=== PATIENT | female | born 1960 | race Caucasian/White ===

== ENCOUNTER 2022-03-01 18:12 | Emergency (ER) | payer BC ==
--- OUTSIDE RECORDS SUMMARY | 2022-03-01 18:19 | XMS REPORT | Continuity of Care Document ---
:1960 Author Organization [facility] t Address [address] [place] [address] Care Team Providers Name Role Phone Elliott ENGLE Primary Care Physician Unavailable Remy Monte Attending Clinician Unavailable William Dickerson Attending Clinician Unavailable Anurag Sage Attending Clinician Unavailable Felice_Narinder Attending Clinician Unavailable JESSA SAGE Attending Clinician Unavailable Nurse, Pob Immunization Attending Clinician Unavailable Odin Barillas DO Attending Clinician ODIN BARILLAS Attending Clinician Unavailable Angela, Cammie Attending Clinician Unavailable Lab, Fam Pob I Attending Clinician Unavailable Juju HERNANDEZP Attending Clinician JUJU Attending Clinician Unavailable ELYSIA Attending Clinician Unavailable Angelo DAWN Attending Clinician Unavailable William Dickerson Admitting Clinician Unavailable Angela, Cammie Admitting Clinician Unavailable Felice_Narinder Admitting Clinician Unavailable Juli Monte Admitting Clinician Unavailable Payers Payer Name Policy Type Policy Number Effective Date Expiration Date S our[place] [id number] 2020 00:[place]00 [place] 2 [id number] 2021 00:00:00 AETNA O [id number] 2017 00:00:00 AETNA (PPO) [id number] 2017 00:00:00 AETNA O [id number] 2017 00:00:00 Problems Condition Condition Condition Status Onset Resolution Last Treating Co mments Source Name Details Category Date Date Treatment Clinician Date Statin not Statin Not Problem Active [facility] tolerated Tolerated 4-11 Fami ly 00:00: Practic 00 e Tinea Tinea Problem Active [facility] cruris Cruris 7-12 Family 00:00: Practic 00 e Neuropathy Neuropathy Problem Active [facility] 7-12 Family 00:00: Practic e Microalbum Microalbum Problem Active [facility] inuria inuria 3-14 Family 00:00: Practic e Type 2 Type 2 Problem Active 2019-09 [facility] diabetes Diabetes 0-30 Family mellitus Mellitus 00:00: Practi c 00 e Hyperlipid Hyperlipid Problem Active 2019-09 [facility] emia emia 0-30 Family 00:00: Practic e Benign Benign Problem Active 2019-09 [facility] essential Essential 0-30 Fami ly hypertensi Hypertensi 00:00: Pr actic on on 00 e Ulcer of Ulcer of Problem Active [facility] toe Toe 7-07 Family 00:00: Practic 00 e Ulcer of Ulcer of Problem Active [facility] ge foot Foot 7-07 Family 00:00: Practic 00 e Hypertrigl Hypertrigl Problem Active 2018-09 [facility] yceridemia yceridemia 1-03 Fa thalia 00:00: Practic 00 e Pure Pure Problem Active 2018-09 [facility] hyperglyce Hyperglyce 1-03 Fa thalia ridemia ridemia 00:00: Practic e Depressive Depressive Problem Active 2018-09 [facility] disorder Disorder 0-16 Family 00:00: Practic 00 e Carotid Carotid Problem Active 2018-09 [facility] artery Artery 0-16 Family stenosis Stenosis 00:00: Practi c 00 e Disorder Disorder Problem Active 2018-09 Sidhu ge of carotid of Carotid 0-16 [facility] artery Artery 00:00: Practic 00 e Obesity Obesity Disease Active 2017-09 Univers (BMI (BMI 2-27 ity of 30-39.9) 30-39.9) 00:00: [place] [facility] Obesity Obesity Problem Active 2016-09 [facility] 09-11 Family 00:00: Practic 00 e On On Problem Active 2016-09 [facility] examinatio Examinatio 09-11 Alejandro vásquez n - n - 00:00: Practic retinopath Retinopath 00 e y y Neoplasm Neoplasm Problem Active 2016-09 Sidhu ge of of 09-11 Family uncertain Uncertain 00:00: Prac tic behavior Behavior 00 e of kidney of Kidney Neoplasm Neoplasm Problem Active 2016-09 Sidhu ge of of 09-11 Family uncertain Uncertain 00:00: Prac tic behavior Behavior 00 e of breast of Breast Retinal Retinal Problem Active 2016-09 [facility] disorder Disorder 09-11 Family 00:00: Practic 00 e Hypertensi Hypertensi Problem Active 2016-09 [facility] ve ve 09-11 Family disorder Disorder 00:00: Practi c 00 e Acute Acute Problem Active 2016-09 [facility] pancreatit Pancreatit 09-11 Alejandro vásquez is is 00:00: Practic 00 e Fitting Fitting Problem Active 2016-09 [facility] procedure Procedure 09-11 Fami ly 00:00: Practic 00 e Clinical Clinical Problem Active 2016-09 Sidhu ge finding Finding 09-11 Family 00:00: Practic 00 e Pain Pain Disease Active Univers 8-15 ity of 00:00: [place] 00 [facility] Bilateral Bilateral Disease Active Uni vers chronic chronic 3-14 [place] of [place] pain [place] Bilateral Bilateral Disease Active Uni vers chronic chronic 3-14 [place] pain [place] Lupus Lupus Disease Active [facility] [place] [facility] Allergies, Adverse Reactions, Alerts Allergy Allergy Status Severity Reaction(s) Onset Inactive Treating Comm ents Source Name Type Date Date Clinician SULFA Drug Active Med Other-Cmnt Univer s (SULFONA Class 8-12 ity of MIDE 00:00: [place] ANTIBIOT 00 Medical ICS) Branch Sulfa Propensi Active Other - See Hair loss Univers (Sulfona ty to comments 8-12 ity of mide adverse 00:00: [place] Antibiot reaction 00 Medica l ics) s to Branch drug Sulfa DA Active [place] [facility] ([facility]ulfona OUT 04-10 [facility] 00:[facility]: [facility]osp[facility] Antibiot 00 l of ics) [place] SULFA DA Active [place] [facility] DRUGS 8-05 [facility] 00:00: [facility] 00 l [facility] [place] No Known DA Active U 2006-0 [facility] Contrast 6- Woman[facility] Allergie 00:00: [facility]osp[facility] s 00 [facility] of [place] No Known DA Active U 2006-0 [facility] Food 6- Woman[facility] Allergie 00:00: [facility]ospita s 00 [facility] of [place] No Known DA Active U 2006-0 [facility] Other 6- Woman[facility] Allergie 00:00: [facility]osp[facility] [place] SULFA Allergy Active Anaphylaxis [facility] (SULFONA to Family MIDE substanc Practic ANTIBIOT e e ICS) Sulfa Adverse Active Info Not Common Reaction Available Spiri t - [facility] Social History Social Habit Start Date Stop Date Quantity Comments Source Alcohol intake 2018-09-02 2018-09-02 0 /d [facility] 00:00:00 00:00:00 Medical Branch Tobacco use and 2015-11-18 2015-11-18 Never used [facility] exposure 00:00:00 00:00:00 Medical Branch Sex [birth year] [facility] 00:00:00 00:00:00 Medical Branch Smoking Status Start Date Stop Date Source Never smoker [facility] Medications Ordered Filled Start Stop Current Ordering Indication Dosage Frequency Signature Comments Components Source Medication Medication Date Date Medication? Clinician (SIG) Name Name Shukrifenissa Guaifenesin 2020-0 2020- No Na [place] 10 ml as Common 1-10 01-10 needed Spirit 00:00: 00:00 - [facility]I 00 :00 [facility] Losartan Losartan 2019-0 Yes Na Monte 1 tablet Common Potassium-H Potassium-H 3-18 S pirit CTZ CTZ 00:00: - [facility]I 00 [facility] NIASPAN 500 2017-09 Yes 1 daily Uni vers MG ORAL 2-27 ity of TBSR 14:49: [place] 27 Medical Branch ASPIRIN 81 2017-09 Yes Take 1 Unive rs MG ORAL 2-27 tablet by ity of CHEW 14:49: mouth [place] 27 daily. Medical Branch gabapentin 2017-09 Yes 1800mg Take 1,800 Univers (GRALISE) 2-27 mg by ity of 300 mg 14:49: mouth at [place] tablet 27 bedtime. Medical Branch insulin 2017-09 Yes 3U inject 3 Univer s aspart 2-27 Units ity of RAPID 14:49: under the [place] (NOVOLOG) 27 skin Medical 100 unit/mL daily. Branch injection Indication s: Novolog 3 units per hour via insulin pump. NIASPAN 500 2018 Yes 1 daily Uni vers MG ORAL 2-27 ity of TBSR 08:49: Medical Branch ASPIRIN 81 2017-09 Yes Take 1 Unive rs MG ORAL 2-27 tablet by ity of CHEW 08:49: mouth [place] 27 daily. Medical Branch gabapentin 2017-09 Yes 1800mg Take 1,800 Univers (GRALISE) 2-27 mg by ity of 300 mg 08:49: mouth at [place] tablet 27 bedtime. Medical Branch insulin 2017-09 Yes 3U inject 3 Univer s aspart 2-27 Units ity of RAPID 08:49: under the [place] (NOVOLOG) 27 skin Medical 100 unit/mL daily. Branch injection Indication s: Novolog 3 units per hour via insulin pump. Losartan Losartan 2017-0 Yes Na Monte 1 tablet Common Potassium Potassium 9-17 Spiri t 00:00: - [facility] diclofenac 2018-0 Yes 75mg Take 1 Unive rs 75 mg EC 5-29 tablet by ity of tablet 00:00: mouth 2 (two) Medical times Branch daily with meals. diclofenac 2018-0 Yes 75mg Take 1 Unive rs 75 mg EC 5-29 tablet by ity of tablet 00:00: mouth 2 (two) Medical times Branch daily with meals. Losartan Losartan 2018-0 Yes Na [place] 1 tablet Common Potassium Potassium 3-14 Spiri t 00:00: - [facility] meloxicam 2018-0 Yes 7.5mg Take 1 Unive rs 7.5 mg 3-12 tablet by ity of tablet 00:00: mouth daily. Medical Branch meloxicam 2018-0 Yes 7.5mg Take 1 Unive rs 7.5 mg 3-12 tablet by ity of tablet 00:00: mouth daily. Medical Branch mirtazapine 2017-0 Yes Take by Un dwayne 7.5 mg 1-10 mouth at ity of tablet 00:00: bedtime. Medical Branch mirtazapine 2017-0 Yes Take by Un dwayne 7.5 mg 1-10 mouth at ity of tablet 00:00: bedtime. Medical Branch DULoxetine 2016-09 Yes TAKE 1 Unive rs 60 mg 1-30 CAPSULE BY ity of capsule 00:00: MOUTH AT [place] BEDTIME Medical Branch DULoxetine 2016-09 Yes TAKE 1 Unive rs 60 mg 1-30 CAPSULE BY ity of capsule 00:00: MOUTH AT [place] BEDTIME Medical Branch naproxen 2015-09 Yes TAKE 1 Univers (EC 0-10 TAB(S) ity of NAPROSYN) 00:00: [place]ALLY 2 [place] 500 mg EC 00 TIMES A Medical tablet DAY Branch naproxen 2015-09 Yes TAKE 1 Univers (EC 0-10 TAB(S) ity of NAPROSYN) 00:00: ORALLY 2 [place] 500 mg EC 00 TIMES A Medical tablet DAY Branch hydrochloro Yes 12.5mg Take 12.5 Univers thiazide 2-23 mg by ity of (HYDRODIURI 00:00: mouth [place] L) 12.5 mg 00 daily. Medical tablet Branch losartan Yes 100mg Take 100 Univ ers (COZAAR) 2-23 mg by ity of 100 mg 00:00: mouth [place] tablet 00 daily. Medical Branch rOPINIRole Yes 1mg Take 1 mg Un dwayne (REQUIP) 1 2-23 by mouth ity o f mg tablet 00:00: at [place] [address] bedtime. Medical Branch hydrochloro Yes 12.5mg Take 12.5 Univers thiazide 2-23 mg by ity of (HYDRODIURI 00:00: mouth [place] L) 12.5 mg 00 daily. Medical tablet Branch losartan Yes 100mg Take 100 Univ ers (COZAAR) 2-23 mg by ity of 100 mg 00:00: mouth [place] tablet 00 daily. Medical Branch rOPINIRole Yes 1mg Take 1 mg Un dwayne (REQUIP) 1 2-23 by mouth ity o f mg tablet 00:00: at [place] [address] bedtime. Medical Branch citalopram Yes 40mg Take 40 mg U nivers (CELEXA) 40 2-19 by mouth ity of mg tablet 00:00: daily. [place] [facility] citalopram Yes 40mg Take 40 mg U nivers (CELEXA) 40 2-19 by mouth ity of mg tablet 00:00: daily. [place] [facility] FREESTYLE [id number] Yes Univers TEST strip 1- ity of 00:00: [place] [facility] FREEYLE 20160 Yes Univers TEST strip - ity of 00:00: [place] [facility] Triamcinolo Triamcinolo Yes Na [place] 1 Common ne ne applicatio Spirit Acetonide Acetonide n to - CHI affected [facility] Requip Requip Yes Na [place] 1 tablet 1 Co mmon to 3 hours [facility] before - CHI bedtime [facility] Mirtazapine Mirtazapine Yes Na [place] 1 tablet Common [facility] Cozaar Cozaar Yes Na [place] 1 tablet Comm on [facility] Celexa Celexa Yes Na [place] 1 tablet Com mon [facility] Xanax Xanax Yes Na [place] 1 tablet Common [facility] Celebrex Celebrex Yes Na [place] TAKE 1 Co mmon CAPSULE Spirit DAILY. - CHI [facility]LEASE [facility] YOUR DOCTOR Richard Ramos Yes Na [place] 1 tablet Co mmon [facility] Cymbalta Cymbalta Yes Na [facility] 1 capsule Common [facility] Patanase Patanase Yes Na [place] 2 sprays Common in each [facility] Plavix Plavix Yes Na [place] 1 tablet Comm on [facility] Aspir-81 Aspir-81 Yes Na [place] 1 tablet Common [facility] Doxycycline Doxycycline Yes Na [place] 1 capsule Common Hyclate Hyclate [facility] Requip Requip Yes Na [place] 1 tablet 1 Co mmon to 3 hours [facility] before [facility] bedtime [facility] Azithromyci Azithromyci Yes Na Monte 2 tablets Common n n on the Spirit first day, - CHI then [address] tablet [facility] daily for Medical 4 days Center Flonase Flonase Yes Na [facility] 2 spray in Common each [facility] Adderall XR Adderall XR No Adderall [place] 20 mg 20 mg XR 20 mg Family capsule,ext capsule,ext capsule,ex Practic ended ended tended e release release release TAKE 1 TAKE 1 TAKE 1 CAPSULE BY CAPSULE BY CAPSULE BY MOUTH EVERY MOUTH EVERY MOUTH DAY IN THE DAY IN THE EVERY DAY MORNING MORNING IN THE MORNING citalopram citalopram No citalopram [facility] 40 mg 40 mg 40 mg Family tablet TAKE tablet TAKE tablet Practic 1 TABLET BY 1 TABLET BY TAKE 1 e MOUTH EVERY MOUTH EVERY TABLET BY DAY DAY MOUTH EVERY DAY Farxiga 10 Farxiga 10 No Satishxiga 10 Village mg tablet mg tablet mg tablet Family TAKE 1 TAKE 1 TAKE 1 Practic TABLET BY TABLET BY TABLET BY e MOUTH EVERY MOUTH EVERY MOUTH DAY DAY EVERY DAY fluticasone fluticasone No fluticason [facility] propionate propionate e Fam tiesha 50 50 propionate Practic mcg/actuati mcg/actuati 50 e on nasal on nasal mcg/actuat spray,suspe spray,suspe ion nasal nsion SPRAY nsion SPRAY spray,susp 2 SPRAYS 2 SPRAYS ension INTO EACH INTO EACH SPRAY 2 NOSTRIL NOSTRIL SPRAYS ONCE A DAY ONCE A DAY INTO EACH NOSTRIL ONCE A DAY FreeStyle FreeStyle No FreeStyle [facility] Jenny 14 Jenny 14 Jenny 14 Fam tiesha Day [employer] Day [employer] Day [employer] Practic e FreeStyle FreeStyle No FreeStyle [facility] Jenny 14 Jenny 14 Jenny 14 Fam tiesha Day Sensor Day Sensor Day Sensor Practic e FreeStyle FreeStyle No FreeStyle [facility] Jenny 14 Jenny 14 Jenny 14 Fam tiesha Day Sensor Day Sensor Day Sensor Practic kit USE 1 kit USE 1 kit USE 1 e SENSOR SENSOR SENSOR EVERY 14 EVERY 14 EVERY 14 DAYS IN DAYS IN DAYS IN VITRO VITRO VITRO FreeStyle FreeStyle No FreeStyle [facility] Test strips Test strips Test F amily strips Practic e Gralise 600 Gralise 600 No Gralise [facility] mg mg 600 mg Family tablet,exte tablet,exte tablet,ext Practic nded nded ended e release release release TAKE 3 TAKE 3 TAKE 3 TABLETS TABLETS TABLETS ONCE A DAY ONCE A DAY ONCE A DAY AT BEDTIME AT BEDTIME AT BEDTIME ORALLY 30 ORALLY 30 ORALLY 30 DAYS DAYS DAYS ipratropium ipratropium No ipratropiu [facility] bromide 21 bromide 21 m bromide Family mcg (0.03 mcg (0.03 21 mcg Pra ctic %) nasal %) nasal (0.03 %) e spray USE 2 spray USE 2 nasal SPRAYS IN SPRAYS IN spray USE EACH EACH 2 SPRAYS NOSTRIL 3 NOSTRIL 3 IN EACH TIMES A DAY TIMES A DAY NOSTRIL 3 TIMES A DAY losartan losartan No losartan Raman silke 100 100 100 Family mg-hydrochl mg-hydrochl mg-hydroch Practic orothiazide orothiazide lorothiazi e 12.5 mg 12.5 mg de 12.5 mg tablet TAKE tablet TAKE tablet 1 TABLET BY 1 TABLET BY TAKE 1 MOUTH EVERY MOUTH EVERY TABLET BY DAY FOR 90 DAY FOR 90 MOUTH DAYS DAYS EVERY DAY FOR 90 DAYS metformin metformin No 1 BID metformin [place] ER 500 mg ER 500 mg ER 500 mg Family 24 hr 24 hr 24 hr Practic tablet,exte tablet,exte tablet,ext e nded nded ended release release release Take 1 Take 1 Take 1 tablet tablet tablet twice a day twice a day twice a by oral by oral day by route as route as oral route directed directed as for 90 for 90 directed days. days. for 90 days. Nystop Nystop No Nystop [facility] 100,000 100,000 100,000 Family unit/gram unit/gram unit/gram Practic topical topical topical e powder powder powder APPLY TO APPLY TO APPLY TO THE THE THE AFFECTED AFFECTED AFFECTED AREA(S) BY AREA(S) BY AREA(S) BY TOPICAL TOPICAL TOPICAL ROUTE 2 ROUTE 2 ROUTE 2 TIMES PER TIMES PER TIMES PER DAY DAY DAY Ozempic 1 Ozempic 1 No 1mg Q1W Ozempic 1 [place] mg/dose (4 mg/dose (4 mg/dose (4 Family mg/3 mL) mg/3 mL) mg/3 mL) Pra ctic subcutaneou subcutaneou subcutaneo e s pen s pen us pen injector injector injector Inject 1 mg Inject 1 mg Inject 1 every week every week mg every by by week by subcutaneou subcutaneou subcutaneo s route for s route for us route 30 days. 30 days. for 30 days. ropinirole ropinirole No ropinirole [facility] 1 mg tablet 1 mg tablet 1 mg F amily TAKE 1 TAKE 1 tablet Practic TABLET BY TABLET BY TAKE 1 e MOUTH ONE MOUTH ONE TABLET BY TO THREE TO THREE MOUTH ONE HOURS HOURS TO THREE BEFORE BEFORE HOURS BEDTIME 90 BEDTIME 90 BEFORE BEDTIME 90 Gralise Gralise 2019- No Na [place] 3 tablets Common 11-02 Spirit 00:00 - CHI :00 [facility] PredniSONE PredniSONE 2019- No Na [place] 2 tablet Common 09-15 daily x 5 Spirit 00:00 days then - CHI :[address] daily x 5 [facility] Immunizations Ordered Filled Immunization Date Status Comments [facility] e Immunization Name Name SARS-COV-2 COVID-19 2021-08-26 Completed Unive rsity of PFIZER VACCINE 00:00:00 [facility] SARS-COV-2 COVID-19 2021-01-28 Completed Unive rsity of PFIZER VACCINE 00:00:00 [facility] influenza, influenza, 2020-07-07 Completed [facility] injectable, injectable, 00:00:00 Practice quadrivalent quadrivalent Vital Signs Vital Name Observation Time Observation Value Comments Source BP Diastolic 2021-12-15 00:00:00 83 mm[Hg] [facility] Family Practice Height 2021-12-15 00:00:00 65 [in_i] [facility] Family Practice BMI (Body Mass 2021-12-15 00:00:00 34.1 kg/m2 [facility] Practice BP Systolic 2021-12-15 00:00:00 145 mm[Hg] [facility] Body Weight 2021-12-15 00:00:00 205 [lb_av] [facility] Height 2021-03-17 00:00:00 65 [in_i] [facility] BMI (Body Mass 2021-03-17 00:00:00 34.4 kg/m2 [facility] Body Weight 2021-03-17 00:00:00 207 [lb_av] [facility] BP Diastolic 2020-11-13 00:00:00 79 mm[Hg] [facility] Height 2020-11-13 00:00:00 65 [in_i] [facility] Practice BMI (Body Mass 2020-11-13 00:00:00 35.1 kg/m2 [facility] Practice BP Systolic 2020-11-13 00:00:00 146 mm[Hg] [facility] Body Weight 2020-11-13 00:00:00 211 [lb_av] [facility] Height 2020-08-06 00:00:00 65 [in_i] [facility] Family Practice BMI (Body Mass 2020-08-06 00:00:00 35.6 kg/m2 [facility] Practice Body Weight 2020-08-06 00:00:00 214 [lb_av] [facility] Practice Procedures Procedure Date / Time Performing Clinician Source Performed SARS-COV-2 COVID-19 2021-08-26 21:46:21 Doctor Unassigned, No [facility] [place] VACCINE,0.3ML,IM Name Medical Branch (PFIZER) Gastric Bypass for 2019-03-28 00:00:00 Tim cheney Obesity Practice Knee 2017-12-05 00:00:00 [facility] Jessica david Arthroscopy/surgery Practice Colonoscopy 2015-09-06 00:00:00 [facility] Jessica ly Practice Section [facility] Procedure on Kidney [facility] ly Practice Lumpectomy of Right [facility] ly Breast Practice Plan of Care Planned Activity Planned Date Details Comments Source Diagnostic Test 2021-12-15 glucose, fingerstick, Raman Boyle Pending 00:00:00 blood [code = Practice glucose, fingerstick, blood] Diagnostic Test 2021-12-15 hemoglobin A1C, [facility] Roman cheney Pending 00:00:00 fingerstick [code = Practice hemoglobin A1C, fingerstick] Future Appointment 2022-06-16 Kevin Viveros, [id number] [facility] 00:00:[address]; Practice [address], [place] [address] Encounters Start End Encounter Admission Attending Care Care Encounter Source Date/Time Date/Time Type Type Clinicians Facility Department ID 2021-10-01 Outpatient Monte, Na STLMLC STLMLC [id number] 2 Common 14:39:36 [facility] 2021-10-01 Outpatient Monte, Na STLMLC STLMLC [id number] 2 Common 12:51:35 [facility] 2021-10-01 Outpatient Monte, Na STLMLC STLMLC [id number] 2 Common 11:59:46 [id number] [facility] 2021-10-01 Outpatient Monte, Na STLMLC STLMLC [id number] 2 Common 11:58:12 [facility] 2021-10-01 Outpatient Monte, Na STLMLC STLMLC [id number] 2 Common 11:56:19 [facility] 2021-10-01 Outpatient Monte, Na [facility]MLC [facility] [id number] 2 Common 11:54:51 [id number] [facility] 2021-10-01 Outpatient Monte, Na STRENEE [facility] [id number] 2 Common 11:04:06 [id number] [facility] 2021-10-01 Outpatient Mell Na STEBENEZERLC [facility] [id number] 2 Common 10:59:46 [id number] [facility] 2019-12-25 Inpatient EM Tuan, HCAPM INTE.02 [id number] [facility] 00:12:00 Rahul [id number] [facility] 2019-12-24 Inpatient EM Dickerson, HCAPM INTE.02 [id number] [facility] 21:18:00 Rahul [id number] [facility] 2022-01-08 2022-01-08 Outpatient FAMILIA SageWH OUTD [id number] [facility] 11:30:00 11:30:00 [facility] [id number] [facility] 2021-12-23 2021-12-23 Outpatient Daniel_T VFP P [id number] [address] [place] [address] 05:57:00 05:57:00 [id number] Family Practic e 2021-12-16 2021-12-16 Outpatient MONICA SAGE [id number] Monica 00:00:00 00:00:00 JOVON Seybol brittany 2021-12-15 2021-12-15 Outpatient Daniel_T VFP VFP [id number] [address] [place] [address] 12:51:00 12:51:00 [id number] Family Practic e 2021-12-15 2021-12-15 Kevin P [place] - [id number] V illage 00:00:00 00:00:00 [facility] Family ViverosTodd - Practheo nunez MD: [id number] TREVER_JENNIFER_John briones [facility] [address] [facility], [address], [place] [address] , Ph. 2021-12-09 2021-12-09 Outpatient MONICA SAGE [id number] Monica 00:00:00 00:00:00 JOVON Seybol brittany 2021-12-04 2021-12-04 Outpatient MONICA SAGE [id number] Monica 13:00:00 13:00:00 JOVON Seybol d 2021-11-20 2021-11-20 ambulatory STLMLC STLMLC [id number] Common 00:00:00 00:00:00 [facility] 2021-11-20 2021-11-20 ambulatory STLMLC STLMLC [id number] Common 00:00:00 00:00:00 [facility] 2021-11-12 2021-11-12 Outpatient MONICA SAGE [id number] Monica 00:00:00 00:00:00 JOVON Seybol d 2021-11-05 2021-11-05 Outpatient MONICA SAGE [id number] Monica 00:00:00 00:00:00 JOVON Seybol d 2021-10-30 2021-10-30 Outpatient MONICA SAGE [id number] Monica 15:00:00 15:00:00 JOVON Seybol d 2021-10-29 2021-10-29 ambulatory STLMLC STLMLC [id number] Common 00:00:00 00:00:00 [facility] 2021-10-15 2021-10-15 ambulatory STLMLC STLMLC [id number] Common 00:00:00 00:00:00 [facility] 2021-09-29 2021-09-29 ambulatory STLMLC STLMLC [id number] Common 00:00:00 00:00:00 [facility] 2021-09-29 2021-09-29 ambulatory STLMLC STLMLC [id number] Common 00:00:00 00:00:00 [facility] 2021-09-18 2021-09-18 ambulatory STLMLC STLMLC [id number] Common 00:00:00 00:00:00 [facility] 2021-08-26 2021-08-26 Imm/Inj Nurse, Loy Pob Immunization [facility] [id number] Univers 15:50:00 15:50:00 [id number] [place] GRIDEREMANUEL [id number] [address] 2021-08-26 2021-08-26 Outpatient Chacho BARILLAS [facility] [id number] Univers 15:50:00 15:31:54 ISAAC pickering [facility] 2021-08-20 2021-08-20 Outpatient RANDA Miller, [facility] [id number] [facility] 12:00:00 12:00:00 [facility] [address] [facility] 2021-07-28 2021-07-28 ambulatory STLMLC STLMLC [id number] Common 00:00:00 00:00:00 [facility] 2021-06-27 2021-06-27 Outpatient Daniel_T VFP VFP [id number] [address] [place] [address] 11:34:00 11:34:00 [id number] Family Practic e 2021-06-27 2021-06-27 Outpatient Daniel_T VFP VFP [id number] [facility] 11:34:00 11:34:00 [id number] Family Practic e 2021-06-16 2021-06-16 Outpatient STLMLC STLC [id number] Common 00:00:00 00:00:00 [facility] 2021-03-19 2021-03-19 Outpatient Daniel_T VFP VFP [id number] [address] [place] [address] 11:34:00 11:34:00 [id number] Family Practic e 2021-03-17 2021-03-17 Outpatient Daniel_T VFP VFP [id number] [facility] 05:38:00 05:38:00 [id number] Family Practic e 2021-03-17 2021-03-17 Kevin VFP [place] - [id number] V illage 00:00:00 00:00:00 [facility] Family ViverosTodd - Practi enrique ANN: [id number] VM_ASHKANU_Shabrittany e [facility], [address], [place] [address] , Ph. 2021-02-17 2021-02-17 Outpatient Chacho BARILLAS [facility] [id number] Univers 11:00:00 11:00:00 [facility] 2021-01-28 2021-01-28 Outpatient Chacho BARILLAS [facility] [id number] Univers 17:50:00 17:50:00 [facility] 2021-01-11 2021-01-11 Outpatient Daniel_T VFP VFP [id number] [facility] 10:28:00 10:28:00 [id number] Family Practic e 2021-01-11 2021-01-11 Outpatient Daniel_T VFP VFP [id number] 20 [facility] 10:28:00 10:28:00 [id number] Family Practic e 2021-01-11 2021-01-11 Outpatient Daniel_T VFP VFP [id number] 20 [facility] 10:28:00 10:28:00 [id number] Family Practic e 2020-11-26 2020-11-26 Outpatient STLMLC STLC [id number] Common 00:00:00 00:00:00 [facility] 2020-11-20 2020-11-20 Outpatient Daniel_T VFP VFP [id number] 20 [facility] 06:42:00 06:42:00 [id number] Family Practic e 2020-11-13 2020-11-13 Outpatient Daniel_T VFP VFP [id number] [facility] 04:16:00 04:16:00 [id number] Family Practic e 2020-11-13 2020-11-13 Kevin VFP [place] - [id number] V illage 00:00:00 00:00:00 [facility] Family ViverosTodd - Ruth nunez MD: [id number] VM_HOU_Shabrittany e Shadow [facility], [address], [place] [address] , Ph. 2020-11-11 2020-11-11 Outpatient Daniel_T VFP VFP [id number] [place] 08:48:00 08:48:00 [id number] Family Practic e 2020-09-03 2020-09-03 Outpatient STLMLC STLC [id number] Common 00:00:00 00:00:00 [facility] 2020-08-12 2020-08-12 Outpatient STLMLC STLMLC [id number] Common 00:00:00 00:00:00 [facility] 2020-08-09 2020-08-09 Outpatient Daniel_T VFP VFP [id number] 20 [facility] 08:12:00 08:12:00 Family Practic e 2020-08-08 2020-08-08 Outpatient STLMLC STLMLC [id number] Common 00:00:00 00:00:00 [facility] 2020-08-08 2020-08-08 Outpatient STLMLC STLMLC [id number] Common 00:00:00 00:00:00 [facility] 2020-08-06 2020-08-06 Outpatient Daniel_T VFP VFP [id number] 20 [facility] 05:30:00 05:30:00 Family Practic e 2020-08-06 2020-08-06 Kevin VFP [place] - [id number] V illage 00:00:00 00:00:00 [facility] Family Viveros, Medical - Practheo nunez MD: [id number] VM_HOU_Dani e [facility], [address] [address] , Ph. 2020-06-26 2020-06-26 Outpatient STLMLC STLMLC [id number] Common 00:00:00 00:00:00 [facility] 2020-03-09 2020-03-09 Outpatient R [facility] [id number] Univers 16:15:00 16:15:00 [id number] ity [facility] 2020-03-09 2020-03-09 Outpatient R [facility] [id number] Univers 16:15:00 16:15:00 [facility] 2020-03-08 2020-03-08 Laboratory Lab, Adc Fam Pob I [facility] 1.2. [id number] Univers 15:54:51 16:14:51 Only [id number] Blake as Professio [phone] [place] dical nal [address] 2020-03-08 2020-03-08 Laboratory Lab, [facility] [id number] 15:54:51 16:14:51 Only Fam Pob I Health [id number] [place] [id number] Tanisha [id number] nal [address] 2020-03-08 2020-03-08 Outpatient R [facility] [id number] Univers 16:00:00 16:00:[id number] [facility] 2020-03-08 2020-03-08 Outpatient R JUJU, [facility] [id number] Univers 16:00:00 16:00:00 [facility] 2020-03-08 2020-03-08 Outpatient R OMASIAI, [facility] [id number] Univers 16:00:00 16:00:00 [facility] 2020-01-19 2020-01-19 Outpatient RANDA HERNDON [facility] MDA [id number] 10:24:37 10:24:37 Zo Taylor 2020-01-16 2020-01-16 Outpatient DAWN, MDA MDA [id number] 15:25:25 15:25:25 STEVE magallanes n 2020-01-16 2020-01-16 Outpatient DAWN, MDA MDA [id number] 15:25:23 15:25:23 STEVE taylro 2020-01-16 2020-01-16 Outpatient DAWN, MDA MDA [id number] 15:25:22 15:25:22 STEVE taylor 2019-12-25 2019-12-25 Outpatient MERNA Dickerson OUTD [id number] [facility] 08:20:00 08:20:00 [facility] [id number] [facility] 2019-10-23 2019-10-23 Outpatient Leisa Rooney [id number] Common 16:09:00 16:09:00 [employer] [facility] it [facility] 2019-09-15 2019-09-15 Outpatient Leisa Rooney [id number] Common 15:40:00 15:40:[address] [facility] 2019-08-15 2019-08-15 Outpatient [facility] [id number] Memoria 08:57:00 08:57:00 remy Palacios [facility] 2019-07-05 2019-07-05 [facility] [id number] Common 09:40:00 09:40:[address] [facility] 2019-02-09 2019-02-09 Out[facility] [id number] Common 11:46:00 11:46:[address] [facility] 2019-01-11 2019-01-11 Out[facility] [id number] Common 12:04:00 12:04:[address] [facility] 2018-11-21 2018-11-21 Outpatient [facility] [id number] Common 11:00:00 11:00:[address] [facility] Results Test Description Test Time Test Comments Results Result Comments Source Hemoglobin A1c measurement device panel 2021-12-15 11:58:52 Test Item Value Reference Range Interpretation Comme nts Hemoglobin A1C Fingerstick: (test code = Hemoglobin A1C Fingerstick :) 6.7 [facility]illary [id number] 11:56:11 Test Item Value Reference Range Interpretation Comments Blood Glucose: mg/dl (test code = Blood 240 Glucose: mg/dl) [facility] [id number] 11:32:00 Test Item Value Reference Range Interpretation Comments WHITE BLOOD CELL (test code = 4.4 K/mm3 3.5-11.0 N WBC) RED BLOOD CELL (test code = RBC) 4.13 M/mm3 4.70-6.10 L HEMOGLOBIN (test code = HGB) 12.7 G/DL 10.4-14.9 N HEMATOCRIT (test code = HCT) 41.0 % 31.5-44.1 N MEAN CELL VOLUME (test code = 99.3 Fl 84.5-98.6 H MCV) MEAN CELL HGB (test code = MCH) 30.8 pg 27.0-34.2 N MEAN CELL HGB CONCETRATION (test 31.0 G/DL 31.5-34.0 L code = MCHC) RED CELL DISTRIBUTION WIDTH (test 14.5 SD 11.5-14.5 N code = RDW) PLATELET COUNT (test code = PLT) 164.0 K/mm3 150-450 N MEAN PLATELET VOLUME (test code = 10.00 fL 7.0-10.5 N MPV) NEUTROPHIL % (test code = NT%) 63.5 % 40-76 N LYMPHOCYTE % (test code = LY%) 26.2 % 20.5-51.1 N MONOCYTE % (test code = MO%) 6.6 % 1.7-9.3 N EOSINOPHIL % (test code = EO%) 3.2 % 0.0-6.0 N BASOPHIL % (test code = BA%) 0.5 % 0.0-2.0 N NEUTROPHIL # (test code = NT#) 2.81 K/mm3 1.8-7.6 N LYMPHOCYTE # (test code = LY#) 1.2 K/mm3 0.6-3.2 N MONOCYTE # (test code = MO#) 0.3 K/mm3 0.3-1.1 N EOSINOPHIL # (test code = EO#) 0.1 K/mm3 0.0-0.4 N BASOPHIL # (test code = BA#) 0.0 K/mm3 0.0-0.1 N MANUAL DIFF REQUIRED (test code = NO DIFF/SCN CRITERIA MDIFF) BASIC METABOLIC [id number] 11:18:00 Test Item Value Reference Range Interpretation Comments SODIUM (test code = NA) 139 mmol/L 134-147 N POTASSIUM (test code = 4.2 mmol/L 3.4-5.0 N K) CHLORIDE (test code = 106 mmol/L 100-108 N CL) CARBON DIOXIDE (test 25 mmol/L 21-32 N code = CO2) ANION GAP (test code = 8.0 GAP calc 4.0-15.0 N GAP) GLUCOSE (test code = 247 MG/DL 70-110 H GLU) BLOOD UREA NITROGEN 13 MG/DL 7-18 N (test code = BUN) GLOMERULAR FILTRATION >=60 max estimate >60 RATE (test code = GFR) estGFR CREATININE (test code = 0.8 MG/DL 0.6-1.0 N CREAT) CALCIUM (test code = CA) 8.2 MG/DL 8.5-10.1 L - DUP VEIN [id number] 13:13:00 Name: MIRIAM DIAS [place] : 1960 Age/S: 59 / F [id number] Unit #: [id number] Loc: [place] [address] Phys: Xochitl Brown MD Acct: [id number] Dis Date: Status: ADM IN PHONE #: [phone] Exam Date: 12/25/2019 1245 FAX #: Reason: leg swelling EXAMS: CPT: [id number] DUP VEIN KINZA [id number] LOCATION: T18 BILATERAL LOWER EXTREMITY VENOUS DUPLEX INDICATION: leg swelling COMPARISON: None. TECHNIQUE: Grayscale and color sonographic imaging of bilateral lower extremity deep veins with dynamic compression and Doppler evaluation. FINDINGS: The right common femoral, superficial femoral, and popliteal veins are fully compressible with normal color flow and normal Doppler waveforms. The right anterior and posterior tibial veins have normal color flow and normal Doppler waveforms. The left common femoral, superficial femoral, and popliteal veins are fully compressible with normalcolor flow and normal Doppler waveforms. The left anterior and posterior tibial veins have normal color flow and normal Doppler waveforms. IMPRESSION: No evidence of DVT. at 1313 Reported and signed by: Mauricio Mcmillan M.D. CC: Xochitl Brown MD; Rahul Dickerson MD; Muriel Monte DO Technologist: Hilary Landon, RT(R),RDMS(AB) Trnscb Date/Time: 12/25/2019 (1313) [id number] PAGE 1 Signed Report Name: MIRIAM DIAS [place] : 1960 Age/S: 59 / F [address] Unit #: [id number] Loc: [place] [address] Phys: Xochitl Brown MD Acct: [id number] Dis Date: Status: ADM INPHONE #: [phone] Exam Date: 12/25/2019 7391 FAX #: Reason: leg swelling EXAMS: CPT: [id number] DUP VEIN KINZA [id number] <Continued> Orig Print D/T: S: 12/25/2019 (1317) Probe: PAGE 2 Signed [id number] 11:11:00 Test Item Value Reference Range Interpretation Comments D-DIMER (test code = DDIMER) 349 ng/mLFEU 215-500 N [id number] 06:04:00 Test Item Value Reference Range Interpretation Comments TROPONIN-I (test < 0.015 NG/ML 0.000-0.045 N Negative: </= 0.045 code = TROPI) Positive: >/= 0.046 Correlation wit h serial results, other cardiac markers, and cl inical findings is nec essary to determine the c linical significance of this result. Quantit ative results using d ifferent methodologies s hould not be compared to one another as nume rical results may erich yby method. Completed by Nursing: NOGLUCOSE BEDSIDE [id number] 06:00:00 Test Item Value Reference Range Interpretation Comments GLUCOSE BEDSIDE TESTING (test code 186 mg/dL 70-110 H = GLUBED) PROTHROMBIN [id number] 02:04:00 Test Item Value Reference Range Interpretation Comments PT PATIENT (test code = PTP) 11.7 SECONDS 9.3-12.9 N INTERNATIONAL NORMAL RATIO 1.03 INR Unit 0.8-1.2 N (test code = INR) NT PRO-BRAIN NATRIURETIC [id number] 01:47:00 Test Item Value Reference Range Interpretation Comments NT PRO-BRAIN NATRIURETIC PEPTI 373 PG/ML 0-100 H (test code = PROBNP) [id number] 01:40:00 Test Item Value Reference Range Interpretation Comments TROPONIN-I (test < 0.015 NG/ML 0.000-0.045 N Negative: </= 0.045 code = TROPI) Positive: >/= 0.046 Correlation wit h serial results, other cardiac markers, and cl inical findings is nec essary to determine the c linical significance of this result. Quantit ative results using d ifferent methodologies s hould not be compared to one another as nume rical results may erich yby method. Completed by Nursing: [id number] 01:40:00 Test Item Value Reference Range Interpretation Comments GLYCOSYLATED HEMOGLOBIN (HA1C) 7.1 % A1C 0.0-5.7 H (test code = GLYHGB) ESTIMATED AVERAGE GLUCOSE (test 157 MG/DLest code = EAG)
[2022-03-01 20:31] LABS: Absolute Lymphocytes (CBC) 1.5 K/uL (0.7-4.9); Hematocrit 40.3 % (36.0-45.0); MPV 7.9 fL (7.6-11.3); RBC Red Blood Cell Count 4.14 M/uL (3.86-4.86)
[2022-03-01] MEDS ORDERED: ONDANSETRON 4 MG/2 ML VIAL ONE (20:36)
[2022-03-01] MEDS ORDERED: NA CHLORIDE 0.9% 1,000 ML ONE (20:36)
[2022-03-01] MEDS ORDERED: PANTOPRAZOLE 40 MG INJ ONE (20:36)
[2022-03-01] MEDS ORDERED: MORPHINE 4 MG/ML SYR ONE ×2 (20:36→23:47)
[2022-03-01 20:50] LABS: Albumin 3.7 g/dL (3.4-5.0); Bilirubin Total 0.6 mg/dL (0.2-1.0); Magnesium 2.2 mg/dL (1.8-2.4); Potassium 4.6 mmol/L (3.5-5.1); Protein, Total 7.1 g/dL (6.4-8.2)
[2022-03-01 21:40] LABS: Urine Blood Negative (Negative); Urine Glucose 3+ (Negative); Urine Protein Negative (Negative); Urine pH 5.5 (5.0-7.0)
--- NOTE | 2022-03-01 22:02 | RAD REPORT ---
EXAM DESCRIPTION: CT - Abdomen Pelvis W Contrast - 03/01/2022 9:28 pm CLINICAL HISTORY: Epigastric pain COMPARISON: Abdomen Pelvis W Contrast dated 02/10/2016 TECHNIQUE: Biphasic, helical CT imaging of the abdomen and pelvis was performed following 100 ml non -ionic IV contrast. No oral contrast administered. All CT scans are performed using dose optimization technique as appropriate and may include automated exposure control or mA/KV adjustment according to patient size. FINDINGS: No suspicious findings in the lung bases. The liver, spleen, and pancreas show no suspicious findings. Gallbladder and biliary tree are also wi thout suspicious finding. Symmetric renal function is seen with no hydronephrosis or suspicious renal mass. Left lower pole caryn culus seen in 2016 is no longer present. No pyelonephritis or acute parenchymal process. Contracted u rinary bladder shows no suspicious finding. No adrenal abnormalities. Uterus and ovaries show no susp icious finding. No dilated bowel loops or bowel wall thickening. Appendix is normal. Gastric bypass surgical changes are seen with no acute component. Patient may have a rectosigmoid anastomosis not detailed in the his tory. No active finding at this site. No free air, free fluid or inflammatory stranding. No hernia, mass or bulky lymphadenopathy. No suspicious bony findings. IMPRESSION: Contrast enhanced CT abdomen and pelvis showing no significant or suspicious finding. No significant change from prior study.
[2022-03-01 22:19] LABS: Urine Bacteria 20-50 /HPF (<20); Urine RBC <5 /HPF (NONE SEEN)
[2022-03-01] MEDS ORDERED: MAGNES/ALUMIN/SIMET 30ML UCUP ONE (23:04)
[2022-03-01] MEDS ORDERED: LIDOCAINE VISCOUS 2% SOLN 15 ML UDC ONE (23:04)
[2022-03-01] MEDS ORDERED: CEFTRIAXONE 1000 MG/VIAL ONE (23:04)
[2022-03-01] MEDS ORDERED: NA CHLORIDE 0.9% 50 ML ONE (23:04)
--- NOTE | 2022-03-01 23:12 | ER ---
Nurse's Notes [facility] Name: Allyson Trejo Age: 61 yrs Sex: Female : 1960 Arrival Date: 03/01/2022 Time: 18:16 Bed 24 Private MD: Diagnosis: Epigastric pain;UTI/ Urinary tract infection, site not specified Presentation: 03/01 19:07 Chief complaint: Patient states: "I have a history of pancreatitis but I havn't had it vc1 for years. I've started feeling the symptoms the last few days. My stomach is swollen. My hot walker recently switched me from Trilicity to Ezympic and my said that can cause pancreatitis. I'm having stomach pains 06/15.". Coronavirus screen: Vaccine status: Patient reports receiving the 2nd dose of the covid vaccine. [employer] At this time, the client does not indicate any symptoms associated with coronavirus-19. Ebola Screen: No symptoms or risks identified at this time. Initial Sepsis Screen: Does the patient meet any 2 criteria? No. Patient's initial sepsis screen is negative. Does the patient have a suspected source of infection? No. Patient's initial sepsis screen is negative. Risk Assessment: Do you want to hurt yourself or someone else? Patient reports no desire to harm self or others. Onset of symptoms was February 25, 2022. 19:07 Method Of Arrival: Ambulatory vc1 19:07 Acuity: SANCHEZ 3 vc1 Triage Assessment: 19:14 General: Appears in no apparent distress. uncomfortable, Behavior is calm, cooperative, vc1 appropriate for age. Pain: Complains of pain in epigastric area Pain does not radiate. Pain currently is 10 out of 10 on a pain scale. Quality of pain is described as sharp, Also complains of nausea. EENT: No deficits noted. Neuro: Level of Consciousness is awake, alert, obeys commands, Oriented to person, place, time, situation, Appropriate for age. Cardiovascular: Capillary refill < 3 seconds Patient's skin is warm and dry. Respiratory: Airway is patent Respiratory effort is even, unlabored, Respiratory pattern is regular, symmetrical. GI: Abdomen is round Reports epigastric pain, nausea. : No deficits noted. Derm: No deficits noted. Musculoskeletal: No deficits noted. Historical: - Allergies: 19:14 Sulfa (Sulfonamide Antibiotics); vc1 - PMHx: 19:14 breast cancer; Diabetes - IDDM; Hypertension; kidney cancer; vc1 - PSHx: 19:14 section; right lumpectomy; partial left kidney removal; gastric bypass; vc1 Coronary artery stent; - Immunization history:: Adult Immunizations up to date, Client reports receiving the 2nd dose of the Covid vaccine. - Social history:: Smoking status: Patient denies any tobacco usage or history of. Screenin:50 Abuse screen: Denies threats or abuse. Nutritional screening: No deficits noted. bb Tuberculosis screening: No symptoms or risk factors identified. Fall Risk None identified. Assessment: 19:50 General: Appears in no apparent distress. uncomfortable, Behavior is calm, cooperative. bb Pain: Complains of pain in abdomen. Neuro: Level of Consciousness is awake, alert, obeys commands, Oriented to person, place, time, situation. Cardiovascular: Capillary refill < 3 seconds Patient's skin is warm and dry. Respiratory: Respiratory effort is even, unlabored, Respiratory pattern is regular. GI: Bowel sounds present X 4 quads. Abd is soft X 4 quads Abdomen is tender to palpation X 4 quads. Derm: Skin is pink, warm \\T\\ dry. Musculoskeletal: Circulation, motion, and sensation intact. 22:00 Reassessment: Patient is alert, oriented x 3, equal unlabored respirations, skin bb warm/dry/pink. awaiting diagnostic results. 23:51 Reassessment: Patient is alert, oriented x 3, equal unlabored respirations, skin bb warm/dry/pink. pt medicated for c/o abdominal pain see MAR awaiting discharge for response to medication family at bedside. 03/02 00:05 Reassessment: Patient is alert, oriented x 3, equal unlabored respirations, skin bb warm/dry/pink. pt states pain has improved now 4/10 pt verbalized understanding of and agrees to plan of care discharge instructions given pt ambulated with steady gait to exit accompanied by family. Vital Signs: 03/01 19:07 BP 122 / 106; Pulse 65; Resp 18; Temp 97.9(O); Pulse Ox 100% on R/A; Weight 92.08 kg; vc1 Height 5 ft. 5 in. (165.10 cm); Pain 10/10; 20:21 BP 156 / 91; Pulse 68; Resp 16; Temp 97.5; Pulse Ox 98% ; Weight 92.08 kg; Height 5 ft. zm 5 in. (165.10 cm); 23:52 BP 170 / 73; Pulse 65; Resp 18 S; Temp 98(O); Pulse Ox 100% on R/A; Pain 7/10; bb 20:21 Body Mass Index 33.78 (92.08 kg, 165.10 cm) zm ED Course: 18:16 Patient arrived in ED. bp1 19:14 Triage completed. vc1 19:14 Arm band placed on left wrist. vc1 19:28 Manuel Pearce PA is PHCP. cp 19:28 Jasbir Obrien MD is Attending Physician. cp 19:50 Patient has correct armband on for positive identification. Placed in gown. Bed in low bb position. Call light in reach. Side rails up X 1. Pulse ox on. NIBP on. 19:51 Miryam Soto RN is Primary Nurse. bb 20:20 Inserted saline lock: 22 gauge in left forearm, using aseptic technique. Blood zm collected. 20:22 Magnesium Sent. zm 20:22 Lactate Sent. zm 20:22 CBC with Diff Sent. zm 20:22 CMP Sent. zm 20:22 Lipase Sent. zm 21:29 CT Abd/Pelvis - IV Contrast Only In Process Unspecified. EDMS 23:11 Dharmesh Pete MD is Referral Physician. cp 23:52 No provider procedures requiring assistance completed. bb 03/02 00:06 IV discontinued, intact, bleeding controlled, No redness/swelling at site. Pressure bb dressing applied. Administered Medications: 03/01 20:30 Drug: Zofran (Ondansetron) 4 mg Route: IVP; Site: left femoral; bb 21:30 Follow up: Response: No adverse reaction bb 20:30 Drug: NS 0.9% 1000 ml Route: IV; Rate: 500 ml/hr; Site: left forearm; bb 22:00 Follow up: IV Status: Completed infusion bb 20:32 Drug: morphine 4 mg Route: IVP; Infused Over: 4 mins; Site: left forearm; bb 21:30 Follow up: Response: No adverse reaction; Pain is decreased bb 20:40 Drug: ProTONIX (pantoprazole) 40 mg Route: IVP; Site: left forearm; bb 21:30 Follow up: Response: No adverse reaction bb 22:43 CANCELLED (Duplicate Order): ProTONIX (pantoprazole) 40 mg IVP once bb 23:08 Drug: Rocephin - (cefTRIAXone) 1 grams Route: IVPB; Infused Over: 30 mins; Site: left bb forearm; 23:33 Follow up: IV Status: Completed infusion; IV Intake: 100ml bb 23:08 Drug: GI Cocktail without - (Maalox Suspension 30 ml, Lidocaine Liquid 2 % 15 bb ml) Route: PO; 23:49 Follow up: Response: No adverse reaction bb 23:47 Drug: morphine 4 mg Route: IVP; Infused Over: 4 mins; Site: left forearm; bb 03/02 00:05 Follow up: Response: No adverse reaction; Pain is decreased bb Intake: 03/01 23:33 IV: 100ml; Total: 100ml. bb Outcome: 23:11 Discharge ordered by . mary 03/02 00:06 Discharged to home ambulatory, with family. bb Condition: stable Discharge instructions given to patient, Instructed on discharge instructions, follow up and referral plans. medication usage, Demonstrated understanding of instructions, follow-up care, medications, Prescriptions given X 4. 00:07 Patient left the ED. bb Signatures: Dispatcher [employer] EDMiryam Looney RN RN bb Manuel Pearce PA PA cp Pania[place], Brittany bp1 Calcote, Vanessa, RN RN vc1 Kimmy Vasquez Corrections: (The following items were deleted from the chart) 03/01 20:45 20:30 NS 0.9% 1000 ml IV at 500 ml/hr in right forearm bb bb
--- NOTE | 2022-03-01 23:12 | EDPHYS ---
Physician Documentation [facility] Name: Allyson Trejo Age: 61 yrs Sex: Female : 1960 Arrival Date: 03/01/2022 Time: 18:16 Bed 24 Private MD: ED Physician Jasbir Obrien HPI: 03/01 19:40 This 61 yrs old Female presents to ER via Ambulatory with complaints of Abdominal Pain, cp Abdominal Swelling, Flank Pain. 19:40 The patient presents with abdominal pain in the epigastric area. Onset: The cp symptoms/episode began/occurred gradually, and became worse this morning. Associated signs and symptoms: Pertinent positives: diarrhea, nausea. 19:40 The patient has experienced similar episodes in the past, today's symptoms are similar, cp to when the patient was apparently diagnosed with pancreatitis. 19:40 The symptoms radiate to the left flank. Severity of pain: in the emergency department cp the pain is unchanged despite home interventions. Historical: - Allergies: 19:14 Sulfa (Sulfonamide Antibiotics); vc1 - PMHx: 19:14 breast cancer; Diabetes - IDDM; Hypertension; kidney cancer; vc1 - PSHx: 19:14 section; right lumpectomy; partial left kidney removal; gastric bypass; vc1 Coronary artery stent; - Immunization history:: Adult Immunizations up to date, Client reports receiving the 2nd dose of the Covid vaccine. - Social history:: Smoking status: Patient denies any tobacco usage or history of. ROS: 19:45 Constitutional: Negative for body aches, chills, fever, poor PO intake. cp 19:45 Eyes: Negative for injury, pain, redness, and discharge. cp 19:45 ENT: Negative for drainage from ear(s), ear pain, sore throat, difficulty swallowing, difficulty handling secretions. 19:45 Cardiovascular: Negative for chest pain, edema, palpitations. 19:45 Respiratory: Negative for cough, shortness of breath, wheezing. 19:45 Abdomen/GI: Positive for abdominal pain, nausea, of the epigastric area and right upper quadrant, Negative for vomiting, diarrhea, constipation. 19:45 Neuro: Negative for altered mental status, headache, weakness. cp 19:45 All other systems are negative. Exam: 19:50 Constitutional: The patient appears in no acute distress, alert, awake, cp non-diaphoretic, non-toxic, well developed, well nourished, uncomfortable. 19:50 Head/Face: Normocephalic, atraumatic. cp 19:50 Eyes: Periorbital structures: appear normal, Conjunctiva: normal, no exudate, no injection, Sclera: no appreciated abnormality, Lids and lashes: appear normal, bilaterally. 19:50 ENT: External ear(s): are unremarkable, Nose: is normal, Mouth: Lips: moist, Oral mucosa: pink and intact, moist, Posterior pharynx: Airway: no evidence of obstruction, patent. 19:50 Neck: ROM/movement: is normal, is supple, without pain, no range of motions limitations. 19:50 Chest/axilla: Inspection: normal. 19:50 Cardiovascular: Rate: normal, Rhythm: regular. 19:50 Respiratory: the patient does not display signs of respiratory distress, Respirations: normal, no use of accessory muscles, no retractions, labored breathing, is not present, Breath sounds: are clear throughout, no decreased breath sounds, no stridor, no wheezing. 19:50 Abdomen/GI: Inspection: abdomen appears normal, Bowel sounds: active, all quadrants, Palpation: soft, in all quadrants, moderate abdominal tenderness, in the epigastric area, rebound tenderness, is not appreciated, involuntary guarding, is not appreciated. 19:50 Back: pain, that is mild, ROM is normal. 19:50 Neuro: Orientation: to person, place \T\ time. Mentation: is normal. Vital Signs: 19:07 BP 122 / 106; Pulse 65; Resp 18; Temp 97.9(O); Pulse Ox 100% on R/A; Weight 92.08 kg; vc1 Height 5 ft. 5 in. (165.10 cm); Pain 10/10; 20:21 BP 156 / 91; Pulse 68; Resp 16; Temp 97.5; Pulse Ox 98% ; Weight 92.08 kg; Height 5 ft. zm 5 in. (165.10 cm); 23:52 BP 170 / 73; Pulse 65; Resp 18 S; Temp 98(O); Pulse Ox 100% on R/A; Pain 7/10; bb 20:21 Body Mass Index 33.78 (92.08 kg, 165.10 cm) zm MDM: 19:35 Patient medically screened. cp 23:10 Data reviewed: vital signs, nurses notes, lab test result(s), radiologic studies, CT cp scan. 23:10 Differential diagnosis: cholecystitis, Cholelithiasis, diverticulitis, pancreatitis, cp Peptic Ulcer Disease, Perf. Duodenal Ulcer, Perf. Gastric Ulcer, Pyelonephritis, Ureterolithiasis, urinary tract infection. Counseling: I had a detailed discussion with the patient and/or guardian regarding: the historical points, exam findings, and any diagnostic results supporting the discharge/admit diagnosis, lab results, radiology results, the need for outpatient follow up, a pump rebuilder, an community liaison, to return to the emergency department if symptoms worsen or persist or if there are any questions or concerns that arise at home. Special discussion: Based on the patient's Hx, exam, and Dx evaluation, there is no indication for emergent surgery or inpatient Tx. It is understood by the patient/guardian that if the Sx's persist or worsen they need to return immediately for re-evaluation. ED course: VSS. Pain improved with meds. Will discharge to home for continued monitoring. CT abdomen/pelvis negative for acute findings. 03/01 19:43 Order name: CBC with Diff; Complete Time: 20:50 03/01 20:50 Interpretation: Normal except: MCV 97.5; MCH 32.5. 03/01 19:43 Order name: CMP; Complete Time: 21:50 03/01 21:50 Interpretation: Normal except: GLUC 142; BUN 28; GFR 69. 03/01 19:43 Order name: Lipase; Complete Time: 21:50 03/01 19:43 Order name: Urine Microscopic Only; Complete Time: 22:30 03/01 22:30 Interpretation: Normal except: UWBC 5-10; UBACT 20-50; SQEPI 5-10. 03/01 19:43 Order name: Lactate; Complete Time: 21:50 03/01 19:43 Order name: Magnesium; Complete Time: 21:50 03/01 20:51 Order name: CT Abd/Pelvis - IV Contrast Only; Complete Time: 22:30 03/01 21:41 Order name: Urine Dipstick-Ancillary; Complete Time: 21:50 EDMS 03/01 22:22 Order name: Urine Culture EDAK 03/01 19:43 Order name: IV Saline Lock; Complete Time: 20:22 cp 03/01 19:43 Order name: Labs collected and sent; Complete Time: 20: 03/01 19:43 Order name: Urine Dipstick-Ancillary (obtain specimen); Complete Time: 21:40 cp Administered Medications: 20:30 Drug: Zofran (Ondansetron) 4 mg Route: IVP; Site: left femoral; bb 21:30 Follow up: Response: No adverse reaction bb 20:30 Drug: NS 0.9% 1000 ml Route: IV; Rate: 500 ml/hr; Site: left forearm; bb 22:00 Follow up: IV Status: Completed infusion bb 20:32 Drug: morphine 4 mg Route: IVP; Infused Over: 4 mins; Site: left forearm; bb 21:30 Follow up: Response: No adverse reaction; Pain is decreased bb 20:40 Drug: ProTONIX (pantoprazole) 40 mg Route: IVP; Site: left forearm; bb 21:30 Follow up: Response: No adverse reaction bb 22:43 CANCELLED (Duplicate Order): ProTONIX (pantoprazole) 40 mg IVP once bb 23:08 Drug: Rocephin - (cefTRIAXone) 1 grams Route: IVPB; Infused Over: 30 mins; Site: left bb forearm; 23:33 Follow up: IV Status: Completed infusion; IV Intake: 100ml bb 23:08 Drug: GI Cocktail without - (Maalox Suspension 30 ml, Lidocaine Liquid 2 % 15 bb ml) Route: PO; 23:49 Follow up: Response: No adverse reaction bb 23:47 Drug: morphine 4 mg Route: IVP; Infused Over: 4 mins; Site: left forearm; bb 03/02 00:05 Follow up: Response: No adverse reaction; Pain is decreased bb Disposition: 07:57 Co-signature as Attending Physician, Jasbir Obrien MD. [email or web address] Disposition Summary: 03/01/22 23:11 Discharge Ordered Location: Home cp Problem: new cp Symptoms: have improved cp Condition: Stable cp Diagnosis - Epigastric pain cp - UTI/ Urinary tract infection, site not specified cp Followup: cp - With: Dharmesh Pete MD - When: 2 - 3 days - Reason: Recheck today's complaints Discharge Instructions: - Discharge Summary Sheet cp - Abdominal Pain, Adult cp - Gastroesophageal Reflux Disease, Adult cp - Urinary Tract Infection, Adult cp Forms: - Medication Reconciliation Form cp - Thank You Letter cp - Antibiotic Education cp - Prescription Opioid Use cp Prescriptions: - Cipro 500 mg Oral Tablet - take 1 tablet by ORAL route every 12 hours for 5 days; 10 tablet; Refills: 0, cp Product Selection Permitted - Diflucan 150 mg Oral Tablet - take 1 tablet by ORAL route one time for 1 day; 1 tablet; Refills: 0, Product cp Selection Permitted - Protonix 40 mg Oral Tablet - take 1 tablet by ORAL route once daily; 30 tablet; Refills: 0, Product cp Selection Permitted - Zofran 4 mg Oral Tablet - take 1 tablet by ORAL route every 12 hours As needed; 20 tablet; Refills: 0, cp Product Selection Permitted Signatures: Dispatcher [employer] EDMiryam Looney RN RN bb Manuel Pearce PA PA cp Jasbir Obrien MD MD [id number] Alma Rosa Mccartney RN RN vc1 Corrections: (The following items were deleted from the chart) 03/01 22:42 22:32 Fluid Challenge ordered. cp bb 22:43 22:41 ProTONIX (pantoprazole) 40 mg IVP once ordered. cp bb
[2022-03-02 01:05] VITALS: BP 170/73; TEMP 98; O2SAT 100
== END 2022-03-02 00:07 | disposition home or self-care (01) ==
LOC: ER 18:12
DX: N39.0 Urinary tract infection, site not specified (principal); I10 Essential (primary) hypertension; E11.9 Type 2 diabetes mellitus without complications; Z95.1 Presence of aortocoronary bypass graft; Z88.2 Allergy status to sulfonamides; Z85.3 Personal history of malignant neoplasm of breast
CPT/HCPCS: 87088; 85025; 87086; 36415; 83735; 83605; 83690; 80053; 74177; Q9967; C9113; J7030; J2405; 81003; 81015; 99284

== ENCOUNTER 2023-02-10 12:11 | Observation (INO) | payer BC ==
--- OUTSIDE RECORDS SUMMARY | 2023-02-10 12:33 | XMS REPORT | Continuity of Care Document ---
:1960 Author Organization [facility] t Address [address] [place] [address] Care Team Providers Name Role Phone LARISSA ENGLE Elliott Primary Care Physician Unavailable Mell, Na L Attending Clinician Unavailable Rahul Dickerson Attending Clinician Unavailable JOVON SAGE Attending Clinician Unavailable MD ABBIE Attending Clinician Unavailable TOMY CERVANTES Attending Clinician Unavailable LAB90 Attending Clinician Unavailable LAB39 Attending Clinician Unavailable OUTSIDE, REPORTED Attending Clinician Unavailable Jovon Sage Attending Clinician Unavailable Felice_Narinder Attending Clinician Unavailable Nurse, Adc Pob Immunization Attending Clinician Unavailable Isaac Barillas DO Attending Clinician ISAAC BARILLAS Attending Clinician Unavailable Brenda Miller Attending Clinician Unavailable Lab, Adc Fam Pob I Attending Clinician Unavailable Warren Carrillo Attending Clinician WARREN MATUTE Attending Clinician Unavailable GUNNAR NAIDU Attending Clinician Unavailable STEVE DAWN Attending Clinician Unavailable Rahul Dickerson Admitting Clinician Unavailable Brenda Miller Admitting Clinician Unavailable Felice_T Admitting Clinician Unavailable Monte, Na Ly Admitting Clinician Unavailable Payers Payer Name Policy Type Policy Number Effective Date Expiration Date S radha Blue Cross 6 [id number] 2020 Common Spiri t Blue Shield of 00:00:[address] [facility] BCBS 2 [id number] 2021 00:00:00 [place] [id number] 2020 OF [place] (PPO[place] 00:00:00 AETNA HMO [id number] 2017 00:00:00 AETNA (PPO) [id number] 2017 00:00:00 AETNA HMO [id number] 2017 00:00:00 Problems Condition Condition Condition Status Onset Resolution Last Treating Co mments Source Name Details Category Date Date Treatment Clinician Date Statin not Statin Not Problem Active V illage tolerated Tolerated 4-11 Fami ly 00:00: Practic 00 e Tinea Tinea Problem Active [facility] cruris Cruris 7-12 Family 00:00: Practic 00 e Neuropathy Neuropathy Problem Active V illage 7-12 Family 00:00: Practic 00 e Microalbum Microalbum Problem Active [facility] inuria inuria 3-14 Family 00:00: Practic e Benign Benign Problem Active 2019-09 [facility] essential Essential 0-30 Fami ly hypertensi Hypertensi 00:00: Pr actic on on e Ulcer of Ulcer of Problem Active Sidhu ge toe Toe 7-07 Family 00:00: Practic 00 e Ulcer of Ulcer of Problem Active Sidhu ge foot Foot 7-07 Family 00:00: Practic e Hypertrigl Hypertrigl Problem Active 2018-09 [facility] illage yceridemia yceridemia 1-03 Fa thalia 00:00: Practic 00 e Pure Pure Problem Active 2018-09 [facility] hyperglyce Hyperglyce 1-03 Fa thalia ridemia ridemia 00:00: Practic e Depressive Depressive Problem Active 2018-09 [facility] illage disorder Disorder 0-16 Family 00:00: Practic 00 e 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 0-16 Family stenosis Stenosis 00:00: Practi c 00 e Disorder Disorder Problem Active 2018-09 Sidhu ge of carotid of Carotid 0-16 Alejandro vásquez artery Artery 00:00: Practic 00 e Obesity Obesity Disease Active 2017-09 Univers (BMI (BMI 2-27 ity of 30-39.9) 30-39.9) 00:00: [place] 00 Medical Branch On On Problem Active 2016-09 [facility] examinatio Examinatio 09-11 Alejandro vásquez n - [...] of Breast Retinal Retinal Problem Active 2016-09 [facility] disorder Disorder 09-11 Family 00:00: Practic 00 e Acute Acute Problem Active 2016-09 [facility] pancreatit Pancreatit 09-11 Alejandro vásquez is is 00:00: Practic 00 e Fitting Fitting Problem Active 2016-09 [facility] procedure Procedure 09-11 Fami ly 00:00: Practic 00 e Clinical Clinical Problem Active 2016-09 Sidhu ge finding Finding 09-11 Family 00:00: Practic 00 e Pain Pain Disease Active Univers 8-15 ity of 00:00: [place] 00 Medical Branch Bilateral Bilateral Disease Active Uni vers chronic chronic 3-14 [place] of [place] pain [place] Bilateral Bilateral Disease Active Uni vers chronic chronic 3-14 [place] pain [place] Lupus Lupus Disease Active [facility] [place] ity of [facility] [id number] Overactive Problem Co mmon bladder Spirit - [facility] Allergic Acute Problem Common rhinitis allergic Spirit rhinitis - [facility] 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 History of Hx of Problem Commo n malignant breast Spirit neoplasm cancer - [facility]I of breast [facility] Stented Stented Problem Common coronary coronary Spirit artery artery - [facility] [id number] prison Problem Com mon current Spirit use of - CHI insulin [facility] Meralgia Meralgia Problem Commo n parestheti parestheti Sp santos ca ca, - CHI unspecifie St d [facility] Mixed Depression Problem Commo n anxiety with Spirit and anxiety - CHI depressive [facility] [id number] Type 2 Problem Common diabetes Spirit mellitus - CHI with [facility]ifie [facility] d diabetic Medica l retinopath Center y without macular edema Obesity Obesity Problem Common Spirit [facility] Hyperlipid Hyperlipid Problem C ommon emia emia Spirit [facility] Restless Restless Problem Commo n legs leg Spirit syndrome syndrome - [facility] ADD - ADD Problem Common Attention (attention Spi rit deficit deficit - CHI disorder disorder) [facility]activ Me dical ity ity Center Anxiety Anxiety Problem Common [facility] [id number] Diabetic Problem Comm on retinopath Spirit y - CHI associated [facility] with [facility] controlled Medica l type 2 Center diabetes mellitus [id number] Flank pain Problem Co mmon Spirit [facility] Hypertensi HTN Problem Commo n on (hypertens Spirit ion) [facility] Personal H/O Problem Common history of malignant Spi rit primary neoplasm - [facility] malignant of kidney neoplasm [facility] of kidney [facility] Fibromyalg Fibromyalg Problem C ommon ia ia [facility] Diabetic Diabetic Problem Commo n neuropathy neuropathy Sp santos [facility] Sinusitis Sinusitis Problem Com mon [facility] Allergies, Adverse Reactions, Alerts Allergy Allergy Status Severity Reaction(s) Onset Inactive Treating Comm ents Source Name Type Date Date Clinician SULFA Drug Active Med Other-Cmnt Univer s (SULFONA Class -12 ity of MIDE 00:00: [place] ANTIBIOT 00 Medical ICS) Branch Sulfa Propensi Active Other - See Hair loss Univers (Sulfona ty to comments 8-12 ity of mide adverse 00:00: [place] Antibiot reaction 00 Medica l ics) s to Branch drug Sulfa DA Active [place] [facility] (Sulfona OUT 04-10 [facility] mide 00:00: Hospita Antibiot 00 l of ics) [place] SULFA DA Active [facility] [place] [facility] DRUGS 04-10 [facility] 00:[facility]: [facility] 00 l of [place] No Known DA Active U 2006-0 [facility] Contrast 6-21 [facility] Allergie 00:00: [facility]osp[facility] s 00 l [facility] [place] No Known DA Active U 2006-0 [facility] Food 6-21 [facility] All[facility]ie 00:[facility]: [facility] [place] No Known DA Active U 2006-0 [facility] Other 6-21 [facility] Allergie 00:00: [facility]osp[facility] [place] SULFA Allergy Active Anaphylaxis [place] (SULFONA to Family MIDE substanc Practic ANTIBIOT e e ICS) Social History Social Habit Start Date Stop Date Quantity Comments Source History of Tobacco Common Spirit - [facility] Use [facility] Sex Assigned At Common Sp santos - [facility] Alcohol intake 2018-09-02 2018-09-02 0 /d [facility] 00:00:00 00:00:00 Medical Branch Tobacco use and 2015-11-18 2015-11-18 Never used [facility] exposure 00:00:00 00:00:00 Medical Branch Smoking Status Start Date Stop Date Source Never Smoker [place] Family P julia Former Smoker 2022-03-31 00:00:00 2022-03-31 00:00:00 Common S pirit - [facility] Medications Ordered Filled Start Stop Current Ordering Indication Dosage Frequency Signature Comments Components Source Medication Medication Date Date Medication? Clinician (SIG) Name Name Xanax 0.5 Xanax 0.5 No 1{table BID Xanax 0.5 MG MG 2-23 t} MG 00:00: 00 Xanax 0.5 Xanax 0.5 No 1{table BID Xanax 0.5 MG MG 2-23 t} MG 00:00: 00 Xanax 0.5 Xanax 0.5 2021- No 1{table BID Xanax 0.5 MG MG 2-23 t} MG 00:00: 00 Xanax 0.5 Xanax 0.5 2021- No 1{table BID Xanax 0.5 MG MG 2-23 t} MG 00:00: 00 Xanax 0.5 Xanax 0.5 2021- No 1{table BID Xanax 0.5 MG MG 2-23 t} MG 00:00: 00 Xanax 0.5 Xanax 0.5 2022-0 No 1{table BID Xanax 0.5 MG MG 2-23 t} MG 00:00: 00 Xanax 0.5 Xanax 0.5 0 No 1{table BID Xanax 0.5 MG MG 2-23 t} MG 00:00: 00 Ciprofloxac Ciprofloxac 0 2022- No 1{table BID Ciprofloxa in HCl 500 in HCl 500 09-29 t} stefan HCl MG MG 00:00: 00:00 500 MG 00 :00 Ciprofloxac Ciprofloxac 0 202- No 1{table BID Ciprofloxa in HCl 500 in HCl 500 09-29 t} stefan HCl MG MG 00:00: 00:00 500 MG 00 :00 Fluconazole Fluconazole 0 202- No 1{table Fluconazol 150 MG 150 MG 09-29 t} e 150 MG 00:00: 00:00 00 :00 Fluconazole Fluconazole 0 2021- No 1{table Fluconazol 150 MG 150 MG 09-29 t} e 150 MG 00:00: 00:00 00 :00 Guaifenesin Guaifenesin 2019-0 2020- No Na [place] 10 ml as Common -10 -10 needed Spirit 00:00: 00:00 - CHI 00 :00 [facility] Losartan Losartan 0 Yes Na [place] 1 tablet Common Potassium-H Potassium-H 3-18 S pirit CTZ CTZ 00:00: - [facility] 00 [facility] NIASPAN 500 2017-09 Yes 1 [...] per hour via insulin pump. NIASPAN 500 2017-09 Yes 1 daily Uni vers MG ORAL 2-27 ity of TBSR 08:49: [place] 27 Medical Branch ASPIRIN 81 2017-09 [...] per hour via insulin pump. Losartan Losartan Yes Na [place] 1 tablet Common Potassium Potassium 9-17 Spiri t 00:00: - [facility]I 00 [facility] Losartan Losartan No 1{table QD Losartan Potassium Potassium 9-17 t} Potassium 50 MG 50 MG 00:00: 50 MG 00 Losartan Losartan No 1{table QD Losartan Potassium Potassium 9-17 t} Potassium 50 MG 50 MG 00:00: 50 MG 00 Losartan Losartan No 1{table QD Losartan Potassium Potassium 9-17 t} Potassium 50 MG 50 MG 00:00: 50 MG 00 Losartan Losartan No 1{table QD Losartan Potassium Potassium 9-17 t} Potassium 50 MG 50 MG 00:00: 50 MG 00 Losartan Losartan No 1{table QD Losartan Potassium Potassium 9-17 t} Potassium 50 MG 50 MG 00:00: 50 MG 00 Losartan Losartan No 1{table QD Losartan Potassium Potassium 9-17 t} Potassium 50 MG 50 MG 00:00: 50 MG 00 Losartan Losartan No 1{table QD Losartan Potassium Potassium 9-17 t} Potassium 50 MG 50 MG 00:00: 50 MG 00 Losartan Losartan No 1{table QD Losartan Potassium Potassium 9-17 t} Potassium 50 MG 50 MG 00:00: 50 MG 00 Losartan Losartan No 1{table QD Losartan Potassium Potassium 9-17 t} Potassium 50 MG 50 MG 00:00: 50 MG 00 Losartan Losartan No 1{table QD Losartan Potassium Potassium 9-17 t} Potassium 50 MG 50 MG 00:00: 50 MG 00 Losartan Losartan No 1{table QD Losartan Potassium Potassium 9-17 t} Potassium 50 MG 50 MG 00:00: 50 MG 00 Losartan Losartan 2017- No 1{table QD Losartan Potassium Potassium 9-17 t} Potassium 50 MG 50 MG 00:00: 50 MG 00 Losartan Losartan No 1{table QD Losartan Potassium Potassium 9-17 t} Potassium 50 MG 50 MG 00:00: 50 MG 00 diclofenac 2017- Yes 75mg Take 1 Unive rs 75 mg EC 5-29 tablet by ity of tablet 00:00: mouth 2 (two) Medical times Branch daily with meals. diclofenac Yes 75mg Take 1 Unive rs 75 mg EC 5-29 tablet by ity of tablet 00:00: mouth 2 (two) Medical times Branch daily with meals. Losartan Losartan Yes Na [place] 1 tablet Common Potassium Potassium 3-14 Spiri t 00:00: - [facility]I 00 [facility] Losartan Losartan No 1{table QD Losartan Potassium Potassium 3-14 t} Potassium 100 MG 100 MG 00:00: 100 MG 00 Losartan Losartan No 1{table QD Losartan Potassium Potassium 3-14 t} Potassium 100 MG 100 MG 00:00: 100 MG 00 Losartan Losartan No 1{table QD Losartan Potassium Potassium 3-14 t} Potassium 100 MG 100 MG 00:00: 100 MG 00 Losartan Losartan 2017- No 1{table QD Losartan Potassium Potassium 3-14 t} Potassium 100 MG 100 MG 00:00: 100 MG 00 Losartan Losartan 2017- No 1{table QD Losartan Potassium Potassium 3-14 t} Potassium 100 MG 100 MG 00:00: 100 MG 00 Losartan Losartan 2017- No 1{table QD Losartan Potassium Potassium 3-14 t} Potassium 100 MG 100 MG 00:00: 100 MG 00 Losartan Losartan 2017- No 1{table QD Losartan Potassium Potassium 3-14 t} Potassium 100 MG 100 MG 00:00: 100 MG 00 Losartan Losartan 2017- No 1{table QD Losartan Potassium Potassium 3-14 t} Potassium 100 MG 100 MG 00:00: 100 MG 00 Losartan Losartan 2017- No 1{table QD Losartan Potassium Potassium 3-14 t} Potassium 100 MG 100 MG 00:00: 100 MG 00 Losartan Losartan 2017- No 1{table QD Losartan Potassium Potassium 3-14 t} Potassium 100 MG 100 MG 00:00: 100 MG 00 Losartan Losartan No 1{table QD Losartan Potassium Potassium 3-14 t} Potassium 100 MG 100 MG 00:00: 100 MG 00 Losartan Losartan No 1{table QD Losartan Potassium Potassium 3-14 t} Potassium 100 MG 100 MG 00:00: 100 MG 00 Losartan Losartan No 1{table QD Losartan Potassium Potassium 3-14 t} Potassium 100 MG 100 MG 00:00: 100 MG 00 meloxicam Yes 7.5mg Take 1 Unive rs 7.5 mg 3-12 tablet by ity of tablet 00:00: mouth [place] 00 daily. Medical Branch meloxicam Yes 7.5mg Take 1 Unive rs 7.5 mg 3-12 tablet by ity of tablet 00:00: mouth [place] 00 daily. Medical Branch mirtazapine Yes Take by Uni vers 7.5 mg 1-10 mouth at ity of tablet 00:00: bedtime. [place] [facility] mirtazapine Yes Take by Uni vers 7.5 mg 1-10 mouth at ity of tablet 00:00: bedtime. [place] [facility] DULoxetine 2016-09 Yes TAKE 1 Unive rs 60 mg 1-30 CAPSULE BY ity of capsule 00:00: MOUTH AT [place] BEDTIME Medical Branch DULoxetine 2016-09 Yes TAKE 1 Unive rs 60 mg 1-30 CAPSULE BY ity of capsule 00:00: MOUTH AT [place] BEDTIME Medical Branch naproxen 2015-09 Yes TAKE [...] ity o f mg tablet 00:00: at [place] 00 bedtime. Medical Branch hydrochloro Yes 12.5mg Take [...] ity o f mg tablet 00:00: at [place] 00 bedtime. Medical Branch citalopram Yes 40mg Take 40 mg U nivers (CELEXA) 40 2-19 by mouth ity of mg tablet 00:00: daily. Medical Branch citalopram Yes 40mg Take 40 mg U nivers (CELEXA) 40 2-19 by mouth ity of mg tablet 00:00: daily. Medical Branch FREESTYLE Yes Univers TEST strip 1-06 ity of 00:00: [place] 00 Medical Branch FREESTYLE Yes Univers TEST strip 1-06 ity of 00:00: [place] 00 Medical Branch Adderall XR Adderall XR No Adderall [place] 20 mg 20 mg XR 20 mg Family capsule,ext capsule,ext capsule,ex Practic ended ended tended e release release release TAKE 1 TAKE 1 TAKE 1 CAPSULE BY CAPSULE BY CAPSULE BY MOUTH EVERY MOUTH EVERY MOUTH DAY IN THE DAY IN THE EVERY DAY MORNING MORNING IN THE MORNING citalopram citalopram No citalopram [place] 40 mg 40 mg 40 mg Family tablet TAKE tablet TAKE tablet Practic 1 TABLET BY 1 TABLET BY TAKE 1 e MOUTH EVERY MOUTH EVERY TABLET BY DAY DAY MOUTH EVERY DAY Farxiga 10 Farxiga 10 No Farxiga 10 Village mg tablet mg tablet mg tablet Family TAKE 1 TAKE 1 TAKE 1 Practic TABLET BY TABLET BY TABLET BY e MOUTH EVERY MOUTH EVERY MOUTH DAY DAY EVERY DAY fluticasone fluticasone No fluticason [place] propionate propionate e Fam tiesha 50 50 propionate Practic mcg/actuati mcg/actuati 50 e on nasal on nasal mcg/actuat spray,suspe spray,suspe ion nasal nsion SPRAY nsion SPRAY spray,susp 2 SPRAYS 2 SPRAYS ension INTO EACH INTO EACH SPRAY 2 NOSTRIL NOSTRIL SPRAYS ONCE A DAY ONCE A DAY INTO EACH NOSTRIL ONCE A DAY FreeStyle FreeStyle No FreeStyle [facility] Jenny 14 Jenny 14 Jenny 14 Fam tiesha Day Moville Day Moville Day Moville Practic e FreeStyle FreeStyle No FreeStyle [place] Jenny 14 Jenny 14 Jenny 14 Fam ties[place] Day Sensor Day Sensor Day Sensor Practic e FreeStyle FreeStyle No FreeStyle [facility] Jenny 14 Jenny 14 Jenny 14 Fam tiesha Day Sensor Day Sensor Day Sensor Practic kit USE 1 kit USE 1 kit USE 1 e SENSOR SENSOR SENSOR EVERY 14 EVERY 14 EVERY 14 DAYS IN DAYS IN DAYS IN VITRO VITRO VITRO FreeStyle FreeStyle No FreeStyle [facility] Test strips Test strips Test F amily strips Practic e Gralise 600 Gralise 600 No Gralise [facility] mg mg 600 mg Family tablet,exte tablet,exte tablet,ext Practic nded nded ended e release release release TAKE 3 TAKE 3 TAKE 3 TABLETS TABLETS TABLETS ONCE A DAY ONCE A DAY ONCE A DAY AT BEDTIME AT BEDTIME AT BEDTIME ORALLY 30 ORALLY 30 ORALLY 30 DAYS DAYS DAYS ipratropium ipratropium No ipratropiu [facility] bromide 21 bromide 21 m bromide Family [...] DAYS metformin metformin No 1 BID metformin [facility] ER 500 mg ER 500 mg ER [...] for 90 days. Nystop Nystop No Nystop [place] 100,000 100,000 100,000 Family unit/gram unit/gram unit/gram [...] for 30 days. ropinirole ropinirole No ropinirole [place] 1 mg tablet 1 mg tablet 1 mg F amily TAKE 1 TAKE 1 tablet Practic TABLET BY TABLET BY TAKE 1 e MOUTH ONE MOUTH ONE TABLET BY TO THREE TO THREE MOUTH ONE HOURS HOURS TO THREE BEFORE BEFORE HOURS BEDTIME 90 BEDTIME 90 BEFORE BEDTIME 90 Triamcinolo Triamcinolo Yes [place] 1 Common ne ne applicatio Spirit Acetonide Acetonide n to - CHI affected [facility] Requip Requip Yes Na [place] 1 tablet 1 Co mmon to 3 hours Spirit before - CHI bedtime [facility] Mirtazapine Mirtazapine Yes [place] 1 tablet Common [facility] Cozaar Cozaar Yes Na [place] 1 tablet Comm on [facility] Celexa Celexa Yes Na [place] 1 tablet Comm on [facility] Xanax Xanax Yes Na [place] 1 tablet Common [facility] Celebrex Celebrex Yes Na [place] TAKE 1 Co mmon CAPSULE Spirit DAILY. - CHI [facility] WITH Center YOUR DOCTOR Richard Ramos Yes Na [place] 1 tablet Co mmon [facility] Cymbalta Cymbalta Yes [place] 1 capsule Common Spirit - [facility] Patanase Patanase Yes Na [place] 2 sprays Common in each Spirit nostril [facility] Plavix Plavix Yes [place] 1 tablet Comm on Spirit - [facility] Aspir-81 Aspir-81 Yes Na [place] 1 tablet Common Spirit [facility] Doxycycline Doxycycline Yes Na [place] 1 capsule Common Hyclate Hyclate [facility] Requip Requip Yes Na [place] 1 tablet 1 Co mmon to 3 hours Spirit before - CHI bedtime [facility] Azithromyci Azithromyci Yes Na [place] 2 tablets Common n n on the Spirit first day, - [facility]I then [address] [facility] for Medical 4 days Center Flonase Flonase Yes Na [place] 2 spray in Common each Spirit nostril [facility] Doxycycline Doxycycline No 1{capsu BID Doxycyclin Hyclate 100 Hyclate 100 le} e Hyclate MG MG 100 MG Triamcinolo Triamcinolo No 1{appli BID Triamcinol ne ne cation_ one Acetonide Acetonide to_affe Acetonide 0.1 % 0.1 % cted_ar 0.1 % ea} Cozaar 100 Cozaar 100 No 1{table QD Cozaar 100 MG MG t} MG CeleBREX CeleBREX No CeleBREX 200MG 200MG 200MG Azithromyci Azithromyci No QD Azithromyc n 250 MG n 250 MG in 250 MG Cymbalta 60 Cymbalta 60 No 1{capsu BID Cymbalta MG MG le} 60 MG Requip 1 MG Requip 1 MG No QD Requip 1 MG Citalopram Citalopram No Citalopram Hydrobromid Hydrobromid Hydrobromi e 40 MG e 40 MG de 40 MG Gralise 600 Gralise 600 No Gralise MG MG 600 MG Aspir-81 81 Aspir-81 81 No 1{table QD Aspir-81 MG MG t} 81 MG Xanax 0.5 Xanax 0.5 No 1{table BID Xanax 0.5 MG MG t} MG DULoxetine DULoxetine No DULoxetine HCl 60 MG HCl 60 MG HCl 60 MG Patanase Patanase No 2{spray BID Patanase 0.6 % 0.6 % s_in_ea 0.6 % ch_nost ril} rOPINIRole rOPINIRole No rOPINIRole HCl 1 MG HCl 1 MG HCl 1 MG Flonase 50 Flonase 50 No 2{spray QD Flonase 50 MCG/ACT MCG/ACT _in_eac MCG/ACT h_nostr il} Gralise 600 Gralise 600 No 3{table Gralise MG MG ts} 600 MG Mirtazapine Mirtazapine No Mirtazapin 7.5 MG 7.5 MG e 7.5 MG Requip 1 MG Requip 1 MG No QD Requip 1 MG Plavix 75 Plavix 75 No 1{table QD Plavix 75 MG MG t} MG Losartan Losartan No 1{table QD Losartan Potassium-H Potassium-H t} Potassium- CTZ CTZ HCTZ 100-12.5 MG 100-12.5 MG 100-12.5 MG Doxycycline Doxycycline No 1{capsu BID Doxycyclin Hyclate 100 Hyclate 100 le} e Hyclate MG MG 100 MG Triamcinolo Triamcinolo No 1{appli BID Triamcinol ne ne cation_ one Acetonide Acetonide to_affe Acetonide 0.1 % 0.1 % cted_ar 0.1 % ea} Cozaar 100 Cozaar 100 No 1{table QD Cozaar 100 MG MG t} MG CeleBREX CeleBREX No CeleBREX 200MG 200MG 200MG Losartan Losartan No 1{table QD Losartan Potassium-H Potassium-H t} Potassium- CTZ CTZ HCTZ 100-12.5 MG 100-12.5 MG 100-12.5 MG Gralise 600 Gralise 600 No 3{table Gralise MG MG ts} 600 MG Requip 1 MG Requip 1 MG No QD Requip 1 MG Plavix 75 Plavix 75 No 1{table QD Plavix 75 MG MG t} MG Cymbalta 60 Cymbalta 60 No 1{capsu BID Cymbalta MG MG le} 60 MG CeleBREX CeleBREX No CeleBREX 200MG 200MG 200MG Cozaar 100 Cozaar 100 No 1{table QD Cozaar 100 MG MG t} MG Requip 1 MG Requip 1 MG No QD Requip 1 MG Flonase 50 Flonase 50 No 2{spray QD Flonase 50 MCG/ACT MCG/ACT _in_eac MCG/ACT h_nostr il} rOPINIRole rOPINIRole No rOPINIRole HCl 1 MG HCl 1 MG HCl 1 MG Doxycycline Doxycycline No 1{capsu BID Doxycyclin Hyclate 100 Hyclate 100 le} e Hyclate MG MG 100 MG Citalopram Citalopram No Citalopram Hydrobromid Hydrobromid Hydrobromi e 40 MG e 40 MG de 40 MG Patanase Patanase No 2{spray BID Patanase 0.6 % 0.6 % s_in_ea 0.6 % ch_nost ril} Mirtazapine Mirtazapine No Mirtazapin 7.5 MG 7.5 MG e 7.5 MG Azithromyci Azithromyci No QD Azithromyc n 250 MG n 250 MG in 250 MG Xanax 0.5 Xanax 0.5 No 1{table BID Xanax 0.5 MG MG t} MG Triamcinolo Triamcinolo No 1{appli BID Triamcinol ne ne cation_ one Acetonide Acetonide to_affe Acetonide 0.1 % 0.1 % cted_ar 0.1 % ea} Aspir-81 81 Aspir-81 81 No 1{table QD Aspir-81 MG MG t} 81 MG Gralise 600 Gralise 600 No Gralise MG MG 600 MG DULoxetine DULoxetine No DULoxetine HCl 60 MG HCl 60 MG HCl 60 MG Losartan Losartan No 1{table QD Losartan Potassium-H Potassium-H t} Potassium- CTZ CTZ HCTZ 100-12.5 MG 100-12.5 MG 100-12.5 MG Gralise 600 Gralise 600 No 3{table Gralise MG MG ts} 600 MG Requip 1 MG Requip 1 MG No QD Requip 1 MG Plavix 75 Plavix 75 No 1{table QD Plavix 75 MG MG t} MG Cymbalta 60 Cymbalta 60 No 1{capsu BID Cymbalta MG MG le} 60 MG CeleBREX CeleBREX No CeleBREX 200MG 200MG 200MG Cozaar 100 Cozaar 100 No 1{table QD Cozaar 100 MG MG t} MG Requip 1 MG Requip 1 MG No QD Requip 1 MG Flonase 50 Flonase 50 No 2{spray QD Flonase 50 MCG/ACT MCG/ACT _in_eac MCG/ACT h_nostr il} rOPINIRole rOPINIRole No rOPINIRole HCl 1 MG HCl 1 MG HCl 1 MG Doxycycline Doxycycline No 1{capsu BID Doxycyclin Hyclate 100 Hyclate 100 le} e Hyclate MG MG 100 MG Citalopram Citalopram No Citalopram Hydrobromid Hydrobromid Hydrobromi e 40 MG e 40 MG de 40 MG Patanase Patanase No 2{spray BID Patanase 0.6 % 0.6 % s_in_ea 0.6 % ch_nost ril} Mirtazapine Mirtazapine No Mirtazapin 7.5 MG 7.5 MG e 7.5 MG Azithromyci Azithromyci No QD Azithromyc n 250 MG n 250 MG in 250 MG Xanax 0.5 Xanax 0.5 No 1{table BID Xanax 0.5 MG MG t} MG Triamcinolo Triamcinolo No 1{appli BID Triamcinol ne ne cation_ one Acetonide Acetonide to_affe Acetonide 0.1 % 0.1 % cted_ar 0.1 % ea} Aspir-81 81 Aspir-81 81 No 1{table QD Aspir-81 MG MG t} 81 MG Gralise 600 Gralise 600 No Gralise MG MG 600 MG DULoxetine DULoxetine No DULoxetine HCl 60 MG HCl 60 MG HCl 60 MG Cymbalta 60 Cymbalta 60 No 1{capsu BID Cymbalta MG MG le} 60 MG CeleBREX CeleBREX No CeleBREX 200MG 200MG 200MG Xanax 0.5 Xanax 0.5 No 1{table BID Xanax 0.5 MG MG t} MG Doxycycline Doxycycline No 1{capsu BID Doxycyclin Hyclate 100 Hyclate 100 le} e Hyclate MG MG 100 MG Citalopram Citalopram No Citalopram Hydrobromid Hydrobromid Hydrobromi e 40 MG e 40 MG de 40 MG Patanase Patanase No 2{spray BID Patanase 0.6 % 0.6 % s_in_ea 0.6 % ch_nost ril} Cozaar 100 Cozaar 100 No 1{table QD Cozaar 100 MG MG t} MG Requip 1 MG Requip 1 MG No QD Requip 1 MG Flonase 50 Flonase 50 No 2{spray QD Flonase 50 MCG/ACT MCG/ACT _in_eac MCG/ACT h_nostr il} Azithromyci Azithromyci No QD Azithromyc n 250 MG n 250 MG in 250 MG rOPINIRole rOPINIRole No rOPINIRole HCl 1 MG HCl 1 MG HCl 1 MG Requip 1 MG Requip 1 MG No QD Requip 1 MG Plavix 75 Plavix 75 No 1{table QD Plavix 75 MG MG t} MG Mirtazapine Mirtazapine No Mirtazapin 7.5 MG 7.5 MG e 7.5 MG DULoxetine DULoxetine No DULoxetine HCl 60 MG HCl 60 MG HCl 60 MG Triamcinolo Triamcinolo No 1{appli BID Triamcinol ne ne cation_ one Acetonide Acetonide to_affe Acetonide 0.1 % 0.1 % cted_ar 0.1 % ea} Gralise 600 Gralise 600 No 3{table Gralise MG MG ts} 600 MG Aspir-81 81 Aspir-81 81 No 1{table QD Aspir-81 MG MG t} 81 MG Gralise 600 Gralise 600 No Gralise MG MG 600 MG Losartan Losartan No 1{table QD Losartan Potassium-H Potassium-H t} Potassium- CTZ CTZ HCTZ 100-12.5 MG 100-12.5 MG 100-12.5 MG Requip 1 MG Requip 1 MG No QD Requip 1 MG Losartan Losartan No 1{table QD Losartan Potassium-H Potassium-H t} Potassium- CTZ CTZ HCTZ 100-12.5 MG 100-12.5 MG 100-12.5 MG CeleXA 40 CeleXA 40 No 1{table QD CeleXA 40 MG MG t} MG Cymbalta 60 Cymbalta 60 No 1{capsu BID Cymbalta MG MG le} 60 MG Losartan Losartan No 1{table QD Losartan Potassium-H Potassium-H t} Potassium- CTZ CTZ HCTZ 100-12.5 MG 100-12.5 MG 100-12.5 MG Mirtazapine Mirtazapine No 2{table Mirtazapin 7.5 MG 7.5 MG ts_at_b e 7.5 MG edtime} Triamcinolo Triamcinolo No 1{appli BID Triamcinol ne ne cation_ one Acetonide Acetonide to_affe Acetonide 0.1 % 0.1 % cted_ar 0.1 % ea} Azithromyci Azithromyci No QD Azithromyc n 250 MG n 250 MG in 250 MG rOPINIRole rOPINIRole No rOPINIRole HCl 1 MG HCl 1 MG HCl 1 MG CeleBREX CeleBREX No CeleBREX 200MG 200MG 200MG Citalopram Citalopram No Citalopram Hydrobromid Hydrobromid Hydrobromi e 40 MG e 40 MG de 40 MG Doxycycline Doxycycline No 1{capsu BID Doxycyclin Hyclate 100 Hyclate 100 le} e Hyclate MG MG 100 MG Gralise 600 Gralise 600 No 3{table Gralise MG MG ts} 600 MG Gralise 600 Gralise 600 No Gralise MG MG 600 MG Aspir-81 81 Aspir-81 81 No 1{table QD Aspir-81 MG MG t} 81 MG Flonase 50 Flonase 50 No 2{spray QD Flonase 50 MCG/ACT MCG/ACT _in_eac MCG/ACT h_nostr il} Requip 1 MG Requip 1 MG No QD Requip 1 MG Mirtazapine Mirtazapine No Mirtazapin 7.5 MG 7.5 MG e 7.5 MG Plavix 75 Plavix 75 No 1{table QD Plavix 75 MG MG t} MG DULoxetine DULoxetine No DULoxetine HCl 60 MG HCl 60 MG HCl 60 MG Patanase Patanase No 2{spray BID Patanase 0.6 % 0.6 % s_in_ea 0.6 % ch_nost ril} Cozaar 100 Cozaar 100 No 1{table QD Cozaar 100 MG MG t} MG Requip 1 MG Requip 1 MG No QD Requip 1 MG Losartan Losartan No 1{table QD Losartan Potassium-H Potassium-H t} Potassium- CTZ CTZ HCTZ 100-12.5 MG 100-12.5 MG 100-12.5 MG CeleXA 40 CeleXA 40 No 1{table QD CeleXA 40 MG MG t} MG Cymbalta 60 Cymbalta 60 No 1{capsu BID Cymbalta MG MG le} 60 MG Losartan Losartan No 1{table QD Losartan Potassium-H Potassium-H t} Potassium- CTZ CTZ HCTZ 100-12.5 MG 100-12.5 MG 100-12.5 MG Mirtazapine Mirtazapine No 2{table Mirtazapin 7.5 MG 7.5 MG ts_at_b e 7.5 MG edtime} Triamcinolo Triamcinolo No 1{appli BID Triamcinol ne ne cation_ one Acetonide Acetonide to_affe Acetonide 0.1 % 0.1 % cted_ar 0.1 % ea} Azithromyci Azithromyci No QD Azithromyc n 250 MG n 250 MG in 250 MG rOPINIRole rOPINIRole No rOPINIRole HCl 1 MG HCl 1 MG HCl 1 MG CeleBREX CeleBREX No CeleBREX 200MG 200MG 200MG Citalopram Citalopram No Citalopram Hydrobromid Hydrobromid Hydrobromi e 40 MG e 40 MG de 40 MG Doxycycline Doxycycline No 1{capsu BID Doxycyclin Hyclate 100 Hyclate 100 le} e Hyclate MG MG 100 MG Gralise 600 Gralise 600 No 3{table Gralise MG MG ts} 600 MG Gralise 600 Gralise 600 No Gralise MG MG 600 MG Aspir-81 81 Aspir-81 81 No 1{table QD Aspir-81 MG MG t} 81 MG Flonase 50 Flonase 50 No 2{spray QD Flonase 50 MCG/ACT MCG/ACT _in_eac MCG/ACT h_nostr il} Requip 1 MG Requip 1 MG No QD Requip 1 MG Mirtazapine Mirtazapine No Mirtazapin 7.5 MG 7.5 MG e 7.5 MG Plavix 75 Plavix 75 No 1{table QD Plavix 75 MG MG t} MG DULoxetine DULoxetine No DULoxetine HCl 60 MG HCl 60 MG HCl 60 MG Patanase Patanase No 2{spray BID Patanase 0.6 % 0.6 % s_in_ea 0.6 % ch_nost ril} Cozaar 100 Cozaar 100 No 1{table QD Cozaar 100 MG MG t} MG Requip 1 MG Requip 1 MG No QD Requip 1 MG Losartan Losartan No 1{table QD Losartan Potassium-H Potassium-H t} Potassium- CTZ CTZ HCTZ 100-12.5 MG 100-12.5 MG 100-12.5 MG CeleXA 40 CeleXA 40 No 1{table QD CeleXA 40 MG MG t} MG Cymbalta 60 Cymbalta 60 No 1{capsu BID Cymbalta MG MG le} 60 MG Losartan Losartan No 1{table QD Losartan Potassium-H Potassium-H t} Potassium- CTZ CTZ HCTZ 100-12.5 MG 100-12.5 MG 100-12.5 MG Mirtazapine Mirtazapine No 2{table Mirtazapin 7.5 MG 7.5 MG ts_at_b e 7.5 MG edtime} Triamcinolo Triamcinolo No 1{appli BID Triamcinol ne ne cation_ one Acetonide Acetonide to_affe Acetonide 0.1 % 0.1 % cted_ar 0.1 % ea} Azithromyci Azithromyci No QD Azithromyc n 250 MG n 250 MG in 250 MG rOPINIRole rOPINIRole No rOPINIRole HCl 1 MG HCl 1 MG HCl 1 MG CeleBREX CeleBREX No CeleBREX 200MG 200MG 200MG Citalopram Citalopram No Citalopram Hydrobromid Hydrobromid Hydrobromi e 40 MG e 40 MG de 40 MG Doxycycline Doxycycline No 1{capsu BID Doxycyclin Hyclate 100 Hyclate 100 le} e Hyclate MG MG 100 MG Gralise 600 Gralise 600 No 3{table Gralise MG MG ts} 600 MG Gralise 600 Gralise 600 No Gralise MG MG 600 MG Aspir-81 81 Aspir-81 81 No 1{table QD Aspir-81 MG MG t} 81 MG Flonase 50 Flonase 50 No 2{spray QD Flonase 50 MCG/ACT MCG/ACT _in_eac MCG/ACT h_nostr il} Requip 1 MG Requip 1 MG No QD Requip 1 MG Mirtazapine Mirtazapine No Mirtazapin 7.5 MG 7.5 MG e 7.5 MG Plavix 75 Plavix 75 No 1{table QD Plavix 75 MG MG t} MG DULoxetine DULoxetine No DULoxetine HCl 60 MG HCl 60 MG HCl 60 MG Patanase Patanase No 2{spray BID Patanase 0.6 % 0.6 % s_in_ea 0.6 % ch_nost ril} Cozaar 100 Cozaar 100 No 1{table QD Cozaar 100 MG MG t} MG Losartan Losartan No 1{table QD Losartan Potassium-H Potassium-H t} Potassium- CTZ CTZ HCTZ 100-12.5 MG 100-12.5 MG 100-12.5 MG Mirtazapine Mirtazapine No Mirtazapin 7.5 MG 7.5 MG e 7.5 MG Gralise 600 Gralise 600 No Gralise MG MG 600 MG Azithromyci Azithromyci No QD Azithromyc n 250 MG n 250 MG in 250 MG Azithromyci Azithromyci No QD Azithromyc n 250 MG n 250 MG in 250 MG rOPINIRole rOPINIRole No rOPINIRole HCl 1 MG HCl 1 MG HCl 1 MG Doxycycline Doxycycline No 1{capsu BID Doxycyclin Hyclate 100 Hyclate 100 le} e Hyclate MG MG 100 MG methylPREDN methylPREDN No QD methylPRED ISolone 4 ISolone 4 NISolone 4 MG MG MG Citalopram Citalopram No Citalopram Hydrobromid Hydrobromid Hydrobromi e 40 MG e 40 MG de 40 MG Benzonatate Benzonatate No 1{capsu TID Benzonatat 200 MG 200 MG le} e 200 MG DULoxetine DULoxetine No DULoxetine HCl 60 MG HCl 60 MG HCl 60 MG Patanase Patanase No 2{spray BID Patanase 0.6 % 0.6 % s_in_ea 0.6 % ch_nost ril} Gralise 600 Gralise 600 No 3{table Gralise MG MG ts} 600 MG CeleBREX CeleBREX No CeleBREX 200MG 200MG 200MG Requip 1 MG Requip 1 MG No QD Requip 1 MG Plavix 75 Plavix 75 No 1{table QD Plavix 75 MG MG t} MG Requip 1 MG Requip 1 MG No QD Requip 1 MG Flonase 50 Flonase 50 No 2{spray QD Flonase 50 MCG/ACT MCG/ACT _in_eac MCG/ACT h_nostr il} Losartan Losartan No 1{table QD Losartan Potassium-H Potassium-H t} Potassium- CTZ CTZ HCTZ 100-12.5 MG 100-12.5 MG 100-12.5 MG Cozaar 100 Cozaar 100 No 1{table QD Cozaar 100 MG MG t} MG Triamcinolo Triamcinolo No 1{appli BID Triamcinol ne ne cation_ one Acetonide Acetonide to_affe Acetonide 0.1 % 0.1 % cted_ar 0.1 % ea} Cymbalta 60 Cymbalta 60 No 1{capsu BID Cymbalta MG MG le} 60 MG CeleXA 40 CeleXA 40 No 1{table QD CeleXA 40 MG MG t} MG Aspir-81 81 Aspir-81 81 No 1{table QD Aspir-81 MG MG t} 81 MG Mirtazapine Mirtazapine No 2{table Mirtazapin 7.5 MG 7.5 MG ts_at_b e 7.5 MG edtime} Losartan Losartan No 1{table QD Losartan Potassium-H Potassium-H t} Potassium- CTZ CTZ HCTZ 100-12.5 MG 100-12.5 MG 100-12.5 MG Mirtazapine Mirtazapine No Mirtazapin 7.5 MG 7.5 MG e 7.5 MG Gralise 600 Gralise 600 No Gralise MG MG 600 MG Azithromyci Azithromyci No QD Azithromyc n 250 MG n 250 MG in 250 MG Azithromyci Azithromyci No QD Azithromyc n 250 MG n 250 MG in 250 MG rOPINIRole rOPINIRole No rOPINIRole HCl 1 MG HCl 1 MG HCl 1 MG Doxycycline Doxycycline No 1{capsu BID Doxycyclin Hyclate 100 Hyclate 100 le} e Hyclate MG MG 100 MG methylPREDN methylPREDN No QD methylPRED ISolone 4 ISolone 4 NISolone 4 MG MG MG Citalopram Citalopram No Citalopram Hydrobromid Hydrobromid Hydrobromi e 40 MG e 40 MG de 40 MG Benzonatate Benzonatate No 1{capsu TID Benzonatat 200 MG 200 MG le} e 200 MG DULoxetine DULoxetine No DULoxetine HCl 60 MG HCl 60 MG HCl 60 MG Patanase Patanase No 2{spray BID Patanase 0.6 % 0.6 % s_in_ea 0.6 % ch_nost ril} Gralise 600 Gralise 600 No 3{table Gralise MG MG ts} 600 MG CeleBREX CeleBREX No CeleBREX 200MG 200MG 200MG Requip 1 MG Requip 1 MG No QD Requip 1 MG Plavix 75 Plavix 75 No 1{table QD Plavix 75 MG MG t} MG Requip 1 MG Requip 1 MG No QD Requip 1 MG Flonase 50 Flonase 50 No 2{spray QD Flonase 50 MCG/ACT MCG/ACT _in_eac MCG/ACT h_nostr il} Losartan Losartan No 1{table QD Losartan Potassium-H Potassium-H t} Potassium- CTZ CTZ HCTZ 100-12.5 MG 100-12.5 MG 100-12.5 MG Cozaar 100 Cozaar 100 No 1{table QD Cozaar 100 MG MG t} MG Triamcinolo Triamcinolo No 1{appli BID Triamcinol ne ne cation_ one Acetonide Acetonide to_affe Acetonide 0.1 % 0.1 % cted_ar 0.1 % ea} Cymbalta 60 Cymbalta 60 No 1{capsu BID Cymbalta MG MG le} 60 MG CeleXA 40 CeleXA 40 No 1{table QD CeleXA 40 MG MG t} MG Aspir-81 81 Aspir-81 81 No 1{table QD Aspir-81 MG MG t} 81 MG Mirtazapine Mirtazapine No 2{table Mirtazapin 7.5 MG 7.5 MG ts_at_b e 7.5 MG edtime} Mirtazapine Mirtazapine No Mirtazapin 7.5 MG 7.5 MG e 7.5 MG rOPINIRole rOPINIRole No rOPINIRole HCl 1 MG HCl 1 MG HCl 1 MG Doxycycline Doxycycline No 1{capsu BID Doxycyclin Hyclate 100 Hyclate 100 le} e Hyclate MG MG 100 MG methylPREDN methylPREDN No QD methylPRED ISolone 4 ISolone 4 NISolone 4 MG MG MG Citalopram Citalopram No Citalopram Hydrobromid Hydrobromid Hydrobromi e 40 MG e 40 MG de 40 MG Azithromyci Azithromyci No QD Azithromyc n 250 MG n 250 MG in 250 MG Benzonatate Benzonatate No 1{capsu TID Benzonatat 200 MG 200 MG le} e 200 MG Requip 1 MG Requip 1 MG No QD Requip 1 MG Plavix 75 Plavix 75 No 1{table QD Plavix 75 MG MG t} MG Flonase 50 Flonase 50 No 2{spray QD Flonase 50 MCG/ACT MCG/ACT _in_eac MCG/ACT h_nostr il} Gralise 600 Gralise 600 No Gralise MG MG 600 MG Cozaar 100 Cozaar 100 No 1{table QD Cozaar 100 MG MG t} MG Losartan Losartan No 1{table QD Losartan Potassium-H Potassium-H t} Potassium- CTZ CTZ HCTZ 100-12.5 MG 100-12.5 MG 100-12.5 MG CeleBREX CeleBREX No CeleBREX 200MG 200MG 200MG Azithromyci Azithromyci No QD Azithromyc n 250 MG n 250 MG in 250 MG Requip 1 MG Requip 1 MG No QD Requip 1 MG Losartan Losartan No 1{table QD Losartan Potassium-H Potassium-H t} Potassium- CTZ CTZ HCTZ 100-12.5 MG 100-12.5 MG 100-12.5 MG Patanase Patanase No 2{spray BID Patanase 0.6 % 0.6 % s_in_ea 0.6 % ch_nost ril} Gralise 600 Gralise 600 No 3{table Gralise MG MG ts} 600 MG CeleXA 40 CeleXA 40 No 1{table QD CeleXA 40 MG MG t} MG Triamcinolo Triamcinolo No 1{appli BID Triamcinol ne ne cation_ one Acetonide Acetonide to_affe Acetonide 0.1 % 0.1 % cted_ar 0.1 % ea} Aspir-81 81 Aspir-81 81 No 1{table QD Aspir-81 MG MG t} 81 MG DULoxetine DULoxetine No DULoxetine HCl 60 MG HCl 60 MG HCl 60 MG Cozaar 100 Cozaar 100 No 1{table QD Cozaar 100 MG MG t} MG Citalopram Citalopram No Citalopram Hydrobromid Hydrobromid Hydrobromi e 40 MG e 40 MG de 40 MG Losartan Losartan No Losartan Potassium-H Potassium-H Potassium- CTZ CTZ HCTZ 100-12.5 MG 100-12.5 MG 100-12.5 MG Requip 1 MG Requip 1 MG No QD Requip 1 MG Patanase Patanase No 2{spray BID Patanase 0.6 % 0.6 % s_in_ea 0.6 % ch_nost ril} Triamcinolo Triamcinolo No 1{appli BID Triamcinol ne ne cation_ one Acetonide Acetonide to_affe Acetonide 0.1 % 0.1 % cted_ar 0.1 % ea} Azithromyci Azithromyci No QD Azithromyc n 250 MG n 250 MG in 250 MG Mirtazapine Mirtazapine No Mirtazapin 7.5 MG 7.5 MG e 7.5 MG methylPREDN methylPREDN No QD methylPRED ISolone 4 ISolone 4 NISolone 4 MG MG MG Aspir-81 81 Aspir-81 81 No 1{table QD Aspir-81 MG MG t} 81 MG Doxycycline Doxycycline No 1{capsu BID Doxycyclin Hyclate 100 Hyclate 100 le} e Hyclate MG MG 100 MG DULoxetine DULoxetine No DULoxetine HCl 60 MG HCl 60 MG HCl 60 MG CeleBREX CeleBREX No CeleBREX 200MG 200MG 200MG Gralise 600 Gralise 600 No 3{table Gralise MG MG ts} 600 MG Azithromyci Azithromyci No QD Azithromyc n 250 MG n 250 MG in 250 MG Flonase 50 Flonase 50 No 2{spray QD Flonase 50 MCG/ACT MCG/ACT _in_eac MCG/ACT h_nostr il} Plavix 75 Plavix 75 No 1{table QD Plavix 75 MG MG t} MG Benzonatate Benzonatate No 1{capsu TID Benzonatat 200 MG 200 MG le} e 200 MG Gralise 600 Gralise 600 No Gralise MG MG 600 MG CeleXA 40 CeleXA 40 No 1{table QD CeleXA 40 MG MG t} MG rOPINIRole rOPINIRole No rOPINIRole HCl 1 MG HCl 1 MG HCl 1 MG Cymbalta 60 Cymbalta 60 No 1{capsu BID Cymbalta MG MG le} 60 MG CeleBREX CeleBREX No CeleBREX 200MG 200MG 200MG Gralise 600 Gralise 600 No Gralise MG MG 600 MG Requip 1 MG Requip 1 MG No QD Requip 1 MG Azithromyci Azithromyci No QD Azithromyc n 250 MG n 250 MG in 250 MG Aspir-81 81 Aspir-81 81 No 1{table QD Aspir-81 MG MG t} 81 MG Requip 1 MG Requip 1 MG No QD Requip 1 MG DULoxetine DULoxetine No DULoxetine HCl 60 MG HCl 60 MG HCl 60 MG Patanase Patanase No 2{spray BID Patanase 0.6 % 0.6 % s_in_ea 0.6 % ch_nost ril} rOPINIRole rOPINIRole No rOPINIRole HCl 1 MG HCl 1 MG HCl 1 MG CeleXA 40 CeleXA 40 No 1{table QD CeleXA 40 MG MG t} MG Flonase 50 Flonase 50 No 2{spray QD Flonase 50 MCG/ACT MCG/ACT _in_eac MCG/ACT h_nostr il} Plavix 75 Plavix 75 No 1{table QD Plavix 75 MG MG t} MG Losartan Losartan No 1{table QD Losartan Potassium-H Potassium-H t} Potassium- CTZ CTZ HCTZ 100-12.5 MG 100-12.5 MG 100-12.5 MG Cozaar 100 Cozaar 100 No 1{table QD Cozaar 100 MG MG t} MG Xanax 0.5 Xanax 0.5 No 1{table BID Xanax 0.5 MG MG t} MG Doxycycline Doxycycline No 1{capsu BID Doxycyclin Hyclate 100 Hyclate 100 le} e Hyclate MG MG 100 MG Triamcinolo Triamcinolo No 1{appli BID Triamcinol ne ne cation_ one Acetonide Acetonide to_affe Acetonide 0.1 % 0.1 % cted_ar 0.1 % ea} Mirtazapine Mirtazapine No 2{table Mirtazapin 7.5 MG 7.5 MG ts_at_b e 7.5 MG edtime} Gralise 600 Gralise 600 No 3{table Gralise MG MG ts} 600 MG Azithromyci Azithromyci No QD Azithromyc n 250 MG n 250 MG in 250 MG Cymbalta 60 Cymbalta 60 No 1{capsu BID Cymbalta MG MG le} 60 MG Requip 1 MG Requip 1 MG No QD Requip 1 MG Citalopram Citalopram No Citalopram Hydrobromid Hydrobromid Hydrobromi e 40 MG e 40 MG de 40 MG Gralise 600 Gralise 600 No Gralise MG MG 600 MG Aspir-81 81 Aspir-81 81 No 1{table QD Aspir-81 MG MG t} 81 MG Xanax 0.5 Xanax 0.5 No 1{table BID Xanax 0.5 MG MG t} MG DULoxetine DULoxetine No DULoxetine HCl 60 MG HCl 60 MG HCl 60 MG Patanase Patanase No 2{spray BID Patanase 0.6 % 0.6 % s_in_ea 0.6 % ch_nost ril} rOPINIRole rOPINIRole No rOPINIRole HCl 1 MG HCl 1 MG HCl 1 MG Flonase 50 Flonase 50 No 2{spray QD Flonase 50 MCG/ACT MCG/ACT _in_eac MCG/ACT h_nostr il} Gralise 600 Gralise 600 No 3{table Gralise MG MG ts} 600 MG Mirtazapine Mirtazapine No Mirtazapin 7.5 MG 7.5 MG e 7.5 MG Requip 1 MG Requip 1 MG No QD Requip 1 MG Plavix 75 Plavix 75 No 1{table QD Plavix 75 MG MG t} MG Losartan Losartan No 1{table QD Losartan Potassium-H Potassium-H t} Potassium- CTZ CTZ HCTZ 100-12.5 MG 100-12.5 MG 100-12.5 MG Gralise Gralise 2020- No [facility] [place] 3 tablets Common 11-02 [facility] 00:00 - [facility] :00 [facility] PredniSONE PredniSONE 2020- No Na [place] 2 tablet Common 09-15 daily x 5 [facility] 00:[facility] days then - [facility] :[address] daily x 5 [facility] Immunizations Ordered Filled Immunization Date Status Comments Sourc e Immunization Name Name SARS-COV-2 COVID-19 2021-08-26 Completed [facility] 00:00:00 [facility] SARS-COV-2 COVID-19 2021-01-28 Completed [facility] PFIZER VACCINE 00:00:00 [facility] influenza, influenza, 2020-07-[address] [facility] injectable, injectable, 00:00:00 Practice quadrivalent quadrivalent Vital Signs Vital Name Observation Time Observation Value Comments Source height 2022-03-30 17:00:00 66 [in_i] [facility] weight 2022-03-30 17:00:00 150 [lb_av] [facility] bmi 2022-03-30 17:00:00 24.21 kg/m2 [facility] BP Diastolic 2021-12-15 00:00:00 83 mm[Hg] [facility] Practice Height 2021-12-15 00:00:00 65 [in_i] [facility] BMI (Body Mass 2021-12-15 00:00:00 34.1 kg/m2 [facility] BP Systolic 2021-12-15 00:00:00 145 mm[Hg] [facility] Body Weight 2021-12-15 00:00:00 205 [lb_av] [facility] height 2021-10-29 11:00:00 66.00 [in_i] [facility] weight 2021-10-29 11:00:00 150 [lb_av] [facility] bmi 2021-10-29 11:00:00 24.21 kg/m2 [facility] Height 2021-03-17 00:00:00 65 [in_i] [facility] BMI (Body Mass 2021-03-17 00:00:00 34.4 kg/m2 [facility] Body Weight 2021-03-17 00:00:00 207 [lb_av] [facility] Practice BP Diastolic 2020-11-13 00:00:00 79 mm[Hg] [facility] Practice Height 2020-11-13 00:00:00 65 [in_i] [facility] Practice BMI (Body Mass 2020-11-13 00:00:00 [facility] BP Systolic 2020-11-13 00:00:00 146 mm[Hg] [facility] Practice Body Weight 2020-11-13 00:00:00 211 [lb_av] [facility] Practice Height 2020-08-06 00:00:00 65 [in_i] [facility] Practice BMI (Body Mass 2020-08-06 00:00:00 35.6 kg/m2 [facility] e Family Index) Practice Body Weight 2020-08-06 00:00:00 214 [lb_av] [facility] Procedures Procedure Date / Time Performing Clinician Source Performed SARS-COV-2 COVID-19 2021-08-26 21:46:21 Doctor Unassigned, No [facility] [place] V[facility].3ML,IM Name [facility] Gastric Bypass for 2019-03-28 00:00:00 [facility] Roman cheney Obesity Practice Knee 2017-12-05 00:00:00 [facility] Jessica david Arthroscopy/surgery Practice Colonoscopy 2015-09-06 00:00:00 [facility] Jessica ly Practice Section [facility] Procedure on Kidney [facility] David ly Practice Lumpectomy of Right [facility] Jessica david Breast Practice Plan of Care Planned Activity Planned Date Details Comments Source Diagnostic Test 2021-12-15 glucose, fingerstick, [facility] Pending 00:00:00 blood [code = Practice glucose, fingerstick, blood] Diagnostic Test 2021-12-15 hemoglobin A1C, [facility] Roman cheney Pending 00:00:00 fingerstick [code = Practice hemoglobin A1C, fingerstick] Encounters Start End Encounter Admission Attending Care Care Encounter Source Date/Time Date/Time Type Type Clinicians Facility Department ID 2022-11-10 Outpatient [facility] [id number] Common 09:45:01 [id number] [facility] 2022-05-01 Outpatient Muriel Monte [facility] [id number] 2 Common 14:30:00 [id number] [facility] 2022-03-30 Outpatient [place], Na [facility]LMLC [facility] [id number] 2 Common 15:38:00 [facility] 2021-10-01 Outpatient [place], Na STLMLC STLMLC [id number] 2 Common 14:39:36 [facility] 2021-10-01 Outpatient [place], Na STLMLC STLMLC [id number] 2 Common 12:51:35 [id number] [facility] 2021-10-01 Outpatient Monte, Na STLMLC STLMLC [id number] 2 Common 11:59:46 [id number] [facility] 2021-10-01 Outpatient Monte, Na STLMLC STLMLC [id number] 2 Common 11:58:12 [id number] [facility] 2021-10-01 Outpatient Monte, Na STLMLC STLMLC [id number] 2 Common 11:56:19 [id number] [facility] 2021-10-01 Outpatient Monte, Na STLMLC STLMLC [id number] 2 Common 11:54:51 [id number] [facility] 2021-10-01 Outpatient Monte, Na STLMLC STLMLC [id number] 2 Common 11:04:06 [id number] [facility] 2021-10-01 Outpatient Monte, Na STLMLC STLMLC [id number] 2 Common 10:59:46 [id number] [facility] 2019-12-25 Inpatient EM Dickerson, HCAPM INTE.02 [id number] [facility] 00:12:[address] 2022-08-25 2022-08-25 (TEL) STLMLC STLMLC [id number] Co mmon 00:00:00 00:00:00 [facility] 2022-08-13 2022-08-13 Outpatient MONICA SAGE [id number] [facility] 14:30:00 14:30:00 JOVON Seybol d 2022-07-23 2022-07-23 Outpatient MONICA SAGE [id number] [facility] 14:30:00 14:30:00 JOVON Seybol d 2022-07-07 2022-07-07 Outpatient [facility], MONICA LORENZO [id number] [facility] 00:00:00 00:00:00 JOVON Seybol d 2022-07-02 2022-07-02 Outpatient IZADDOOST, MONICA LORENZO [id number] Monica 11:30:00 11:30:00 JOVON Seybol d 2022-06-25 2022-06-25 Outpatient IZADDOOST, MONICA LORENZO [id number] Monica 11:30:00 11:30:00 JOVON Seybol d 2022-06-16 2022-06-16 Outpatient IZADDOOST, MONICA LORENZO [id number] Monica 11:30:00 11:30:00 JOVON Seybol d 2022-06-16 2022-06-16 Outpatient IZADDOOST, MONICA LORENZO [id number] Monica 00:00:00 00:00:00 JOVON Seybol d 2022-06-16 2022-06-16 Outpatient IZADDOOST, MONICA LORENZO [id number] Monica 00:00:00 00:00:00 JOVON Seybol d 2022-06-16 2022-06-16 Outpatient IZADDOOST, MONICA LORENZO [id number] [facility] 00:00:00 00:00:00 JOVON Seybol d 2022-06-15 2022-06-15 Outpatient IZADDOOST, MONICA LORENZO [id number] Monica 00:00:00 00:00:00 JOVON Seybol d 2022-06-15 2022-06-15 Outpatient MYKELSEYONL MONICA LORENZO [id number] Monica 00:00:00 00:00:00 MD ANITA Seybol d 2022-06-15 2022-06-15 Outpatient IZADDOOST, MONICA LORENZO [id number] Monica 00:00:00 00:00:00 JOVON Seybol d 2022-06-08 2022-06-08 Outpatient IZADDOOSTMONICA [id number] Monica 06:00:00 06:00:00 JOVON Seybol d 2022-06-08 2022-06-08 Outpatient MONICA CERVANTES [id number] Monica 00:00:00 00:00:00 TOMY Seybol d 2022-06-05 2022-06-05 Outpatient LAB90 MONICA LORENZO [id number] Monica 13:50:00 13:50:00 Seybol d 2022-06-04 2022-06-04 Outpatient LAB90 MONICA LORENZO [id number] Monica 14:30:00 14:30:00 Seybol d 2022-06-02 2022-06-02 Outpatient MYKELSEYON MONICA LORENZO [id number] [place] 00:00:00 00:00:00 MD ANITA Seybol d 2022-06-02 2022-06-02 Outpatient MONICA SAGE [id number] Monica 00:00:00 00:00:00 JOVON Seybol d 2022-06-02 2022-06-02 Outpatient MONICA SAGE [id number] Monica 00:00:00 00:00:00 JOVON Seybol d 2022-05-21 2022-05-21 Outpatient MONICA SAGE [id number] Monica 11:00:00 11:00:00 JOVON Seybol d 2022-05-21 2022-05-21 Outpatient MONICA SAGE [id number] Monica 09:30:00 09:30:00 JOVON Seybol d 2022-05-21 2022-05-21 Outpatient MONICA SAGE [id number] Monica 00:00:00 00:00:00 JOVON Seybol d 2022-05-08 2022-05-08 Outpatient MONICA SAGE [id number] Monica 00:00:00 00:00:00 JOVON Seybol d 2022-05-01 2022-05-01 (TEL) [facility] [id number] mmon 00:00:00 00:00:00 [facility] 2022-04-27 2022-04-27 Outpatient MONICA SAGE [id number] [place] 00:00:00 00:00:00 JOVON Seybol d 2022-04-27 2022-04-27 Outpatient IZADDOOST, MONICA LORENZO [id number] [place] 00:00:00 00:00:00 JOVON Seybol d 2022-04-27 2022-04-27 Outpatient IZADDOOST, MONICA LORENZO [id number] Monica 00:00:00 00:00:00 JOVON Seybol d 2022-04-24 2022-04-24 Outpatient IZADDOOST, MONICA LORENZO [id number] Monica 00:00:00 00:00:00 JOVON Seybol d 2022-04-23 2022-04-23 Outpatient LAB39 MONICA LORENZO [id number] Monica 12:05:00 12:05:00 Seybol d 2022-04-23 2022-04-23 Outpatient IZADDOOST, MONICA LORENZO [id number] Monica 11:00:00 11:00:00 JOVNO Seybol d 2022-04-23 2022-04-23 Outpatient IZADDOOST, MONICA LORENZO [id number] Monica 00:00:00 00:00:00 JOVON Seybol d 2022-04-23 2022-04-23 Outpatient OUTSIDE, MONICA LORENZO [id number] Monica 00:00:00 00:00:00 REPORTED Seybo ld 2022-03-30 2022-03-30 [facility] [id number] Co mmon 00:00:00 00:00:00 VISIT EST Spir it PT LEVEL 3 - [facility] 2022-03-30 2022-03-30 (TEL) [facility] [id number] Co mmon 00:00:00 00:00:00 Spirit - [facility] 2022-03-19 2022-03-19 Outpatient MONICA SAGE [id number] Monica 00:00:00 00:00:00 JOVON Seybol d 2022-03-13 2022-03-13 Outpatient IZMONICA MAHARAJ [id number] Monica 00:00:00 00:00:00 JOVON Seybol d 2022-01-08 2022-01-08 Outpatient FAMILIA SageWH OUTD [id number] [facility] 11:30:00 11:30:00 [facility]on [facility] 2021-12-23 2021-12-23 Outpatient Daniel_T VFP VFP [id number] [facility] 05:57:00 05:57:00 [id number] Family Shan e 2021-12-16 2021-12-16 Outpatient MONICA SAGE [id number] Monica 00:00:00 00:00:00 JOVON Seybol d 2021-12-15 2021-12-15 Outpatient Daniel_T VFP VFP [id number] [facility] 12:51:00 12:51:00 [id number] Family Shan e 2021-12-15 2021-12-15 Kevin VFP [place] - [id number] V illage 00:00:00 00:00:00 [facility] Family ViverosTodd - Practi enrique MD: [id number] VM_JENNIFER_John e [place] [facility], [address], [place] [address] , Ph. 2021-12-09 2021-12-09 Outpatient MONICA SAGE [id number] Monica 00:00:00 00:00:00 JOVON Garayybol brittany 2021-12-04 2021-12-04 Outpatient MONICA SAGE [id number] Monica 13:00:00 13:00:00 JOVON Seybol brittany 2021-11-20 2021-11-20 (TEL) [facility] [id number] Co mmon 00:00:00 00:00:00 [facility] 2021-11-20 2021-11-20 (TEL) STLMLC STLMLC [id number] Co mmon 00:00:00 00:00:00 [facility] 2021-11-12 2021-11-12 Outpatient MONICA SAGE [id number] Monica 00:00:00 00:00:00 JOVON Seybol brittany 2021-11-05 2021-11-05 Outpatient MONICA SAGE [id number] Monica 00:00:00 00:00:00 JOVON Seybol d 2021-10-30 2021-10-30 Outpatient MONICA SAGE [id number] Monica 15:00:00 15:00:00 JOVON Seybol d 2021-10-29 2021-10-29 OFFICE STLMLC STLMLC [id number] Co mmon 00:00:00 00:00:00 VISIT [facility] PT - CHI LEVEL 4 [facility] 2021-10-15 2021-10-15 (TEL) STLMLC STLMLC [id number] Co mmon 00:00:00 00:00:00 [facility] 2021-09-29 2021-09-29 OFFICE STLMLC STLMLC [id number] Co mmon 00:00:00 00:00:00 VISIT [facility] PT - CHI LEVEL 2 [facility] 2021-09-29 2021-09-29 (TEL) STLMLC STLMLC [id number] Co mmon 00:00:00 00:00:00 [facility] 2021-09-18 2021-09-18 (TEL) STLMLC STLMLC [id number] Co mmon 00:00:00 00:00:00 [facility] 2021-08-26 2021-08-26 Imm/Inj Nurse, Adc Pob Immunization [facility] [id number] Univers 15:50:00 15:50:00 Visit Isaac Barillas [id number] .10 ladan pérez DALE [id number] [place] GRIDERIO [phone] Vt dical [address] 2021-08-26 2021-08-26 Outpatient Chacho BARILLAS [facility] [id number] Univers 15:50:00 15:31:54 ISAAC pickering [facility] 2021-08-20 2021-08-20 Outpatient FAMILIA HernandezWH [place] [id number] [facility] 12:00:00 12:00:00 [facility] 2021-07-28 2021-07-28 (TEL) STLMLC STLMLC [id number] Co mmon 00:00:00 00:00:00 [facility] 2021-06-27 2021-06-27 Outpatient Daniel_T VFP VFP [id number] [facility] 11:34:00 11:34:00 [id number] Family Practic e 2021-06-27 2021-06-27 Outpatient Daniel_T VFP VFP [id number] [address] [place] [address] 11:34:00 11:34:00 [id number] Family Practic e 2021-06-16 2021-06-16 (TEL) [facility] [id number] Co mmon 00:00:00 00:00:00 [facility] 2021-03-19 2021-03-19 Outpatient Daniel_T VFP VFP [id number] [facility] 11:34:00 11:34:00 [id number] Family Practic e 2021-03-17 2021-03-17 Outpatient Daniel_T VFP VFP [id number] [address] [place] [address] 05:38:00 05:38:00 [id number] Family Practic e 2021-03-17 2021-03-17 Kevin VFP [place] - [id number] V illage 00:00:00 00:00:00 [facility] Family ViverosTodd - Practheo nunez MD: [id number] VM_HOU_Shabrittany e [facility], [address], [place] [address] , Ph. 2021-02-17 2021-02-17 Outpatient Chacho BARILLAS [facility] [id number] Univers 11:00:00 11:00:00 [facility] 2021-01-28 2021-01-28 Outpatient Chacho BARILLAS [facility] [id number] Univers 17:50:00 17:50:00 [facility] 2021-01-11 2021-01-11 Outpatient Daniel_T VFP VFP [id number] [address] [place] [address] 10:28:00 10:28:00 [id number] Family Practic e 2021-01-11 2021-01-11 Outpatient Daniel_T VFP VFP [id number] [address] [place] [address] 10:28:00 10:28:00 [id number] Family Practic e 2021-01-11 2021-01-11 Outpatient Daniel_T VFP VFP [id number] [facility] 10:28:00 10:28:00 [id number] Family Practic e 2020-11-26 2020-11-26 Outpatient STLMLC STLMLC [id number] Common 00:00:00 00:00:00 [facility] 2020-11-20 2020-11-20 Outpatient Daniel_T VFP VFP [id number] [facility] 06:42:00 06:42:00 [id number] Family Practic e 2020-11-13 2020-11-13 Outpatient Daniel_T VFP VFP [id number] [address] [place] [address] 04:16:00 04:16:00 [id number] Family Practic e 2020-11-13 2020-11-13 Kevin VFP [place] - [id number] V illage 00:00:00 00:00:00 [facility] Family ViverosTodd - Practheo nunez MD: [id number] VM_ASHKANU_John e Shadow [facility], [address], [place] [address] , Ph. 2020-11-11 2020-11-11 Outpatient Daniel_T VFP VFP [id number] [facility] 08:48:00 08:48:00 [id number] Family Practic e 2020-09-03 2020-09-03 Outpatient STLMLC STLMLC [id number] Common 00:00:00 00:00:00 [facility] 2020-08-12 2020-08-12 Outpatient STLMLC STLMLC [id number] Common 00:00:00 00:00:00 [facility] 2020-08-09 2020-08-09 Outpatient Daniel_T VFP VFP [id number] [address] [place] [address] 08:12:00 08:12:00 [id number] Family Practic e 2020-08-08 2020-08-08 Outpatient STLMLC STLMLC [id number] Common 00:00:00 00:00:00 [facility] 2020-08-08 2020-08-08 Outpatient STLMLC STLMLC [id number] Common 00:00:00 00:00:00 [facility] 2020-08-06 2020-08-06 Outpatient Felice_T VFP [facility] [id number] 8-20 Village 05:30:00 05:30:00 Family Practic e 2020-08-06 2020-08-06 Kevin VFP [place] - [id number] V illage 00:00:00 00:00:00 Dilon [facility] Family FeliceTodd - Practheo nunez MD: [id number] VM_HOU_Amilcar e Shadow [facility], [address], [place] [address] , Ph. 2020-06-26 2020-06-26 Outpatient STLMLC STLC [id number] Common 00:00:00 00:00:00 [facility] 2020-03-09 2020-03-09 Outpatient R [facility] [id number] Univers 16:15:00 16:15:00 [facility] 2020-03-09 2020-03-09 Outpatient R [facility] [id number] Univers 16:15:00 16:15:00 [facility] 2020-03-08 2020-03-08 Laboratory Lab, [facility] Fam Pob I [facility] 1.2. [id number] Univers 15:54:51 16:14:51 Only Mandi, [facility] 350.1.13.10 [facility] [place] 4.2.7.2.686 Blake as Professio [phone] Vt dical [address] Office [address] 2020-03-08 2020-03-08 Laboratory Lab, [facility] [id number] 15:54:51 16:14:51 Only Fam Pob I Health 350.1.13.10 [place] 4.2.7.2.686 Professio [id number] nal [facility] Office [address] 2020-03-08 2020-03-08 Outpatient R [facility] [id number] Univers 16:00:00 16:00:00 [facility] 2020-03-08 2020-03-08 [facility] [id number] [facility] 16:00:00 16:00:00 WARREN [facility] 2020-03-08 2020-03-08 Outpatient Chacho MATUTE [facility] [id number] Univers 16:00:00 16:00:00 WARREN pickering [facility] 2020-01-19 2020-01-19 Outpatient RANDA HERNDON [facility] MDA [id number] 10:24:37 10:24:37 Ace Bondso claudia 2020-01-16 2020-01-16 Outpatient DAWN, MDA MDA [id number] 15:25:25 15:25:25 STEVE Eddie o n 2020-01-16 2020-01-16 Outpatient DAWN, MDA MDA [id number] 15:25:23 15:25:23 STEVE Eddie o n 2020-01-16 2020-01-16 Outpatient DAWN, MDA MDA [id number] 15:25:22 15:25:22 STEVE Eddie o n 2019-12-25 2019-12-25 Outpatient Dickerson, [facility] [id number] [facility] 08:20:00 08:20:[address] 2019-10-23 2019-10-23 Out[facility] [id number] Common 16:09:00 16:09:[address] [facility] 2019-09-15 2019-09-15 Outpatient [facility] [id number] Common 15:40:00 15:40:[address] [facility] 2019-08-15 2019-08-15 Outpatient [facility] [id number] Memoria 08:57:00 08:57:00 l [place] [facility] 2019-07-05 2019-07-05 Outpatient [facility] [id number] Common 09:40:00 09:40:[address] [facility] 2019-02-09 2019-02-09 Outpatient [facility] [id number] Common 11:46:00 11:46:[address] [facility] 2019-01-11 2019-01-11 Outpatient Leisa [facility] [place] [facility] [id number] Common 12:04:00 12:04:[address] [facility] 2018-11-21 2018-11-21 Outpatient Leisa [facility] [place] [id number] Common 11:00:00 11:00:[address] [facility] Results Test Description Test Time Test Comments Results Result Comments Source Hemoglobin A1c measurement device panel 2021-12-15 11:58:52 Test Item Value Reference Range Interpretation Comme nts Hemoglobin A1C Fingerstick: (test code = Hemoglobin A1C Fingerstick :) 6.7 [facility] Capillary [id number] 11:56:11 Test Item Value Reference Range Interpretation Comments Blood Glucose: mg/dl (test code = Blood 240 Glucose: mg/dl) [facility]O [id number] 11:32:00 Test Item Value Reference Range Interpretation [...] = NO DIFF/SCN CRITERIA MDIFF) BASIC METABOLIC [id number] 11:18:00 Test Item Value Reference Range Interpretation [...] 8.2 MG/DL 8.5-10.1 L - DUP VEIN [id number] 13:13:00 Name: MIRIAM TREJO [facility] : 1960 Age/S: 59 / F [id number] Unit #: [id number] Loc: [place] [address] Phys: Xochitl Brown MD Acct: [id number] Dis Date: Status: ADM IN PHONE #: [phone] Exam Date: 12/25/2019 1245 FAX #: Reason: leg swelling EXAMS: CPT: [id number] DUP VEIN KINZA 455[address] LOCATION: T18 BILATERAL LOWER EXTREMITY VENOUS DUPLEX [...] have normal color flow and normal Doppler waveforms.The left common femoral, superficial femoral, and popliteal veins are fully compressible with normalcolor flow and normal Doppler waveforms. The left anterior and posterior tibial veins have normal color flow and normal Doppler waveforms. IMPRESSION: No evidence of DVT. at 1313 Reported and signed by: Mauricio Mcmillan M.D. CC: Xochitl Brown MD; Rahul Dickerson MD; Muriel Monte DO Technologist: Hilary Landon RT(R),RDMS(AB) Trnscb Date/Time: 12/25/2019 (1313) [email or web address] PAGE 1 Signed Report Name: MIRIAM TREJO [facility] : 1960 Age/S: 59 / F [id number] Unit #: [id number] Loc: [place] [address] Phys: Xochitl Brown MD Acct: [id number] Dis Date: Status: ADM IN PHONE #: [phone] Exam Date: 12/25/2019 1245FAX #: Reason: leg swelling EXAMS: CPT: [id number] DUP VEIN KINZA [id number] (Continued) Orig Print D/T: S:12/25/2019 (1317) Probe: PAGE 2 Signed [id number] 11:11:00 Test Item Value Reference Range Interpretation Comments D-DIMER (test code = DDIMER) 349 ng/mLFEU 215-500 N [id number] 06:04:00 Test Item Value Reference Range Interpretation [...] yby method. Completed by Nursing: NOGLUCOSE BEDSIDE [id number] 06:00:00 Test Item Value Reference Range Interpretation Comments GLUCOSE BEDSIDE TESTING (test code 186 mg/dL 70-110 H = GLUBED) PROTHROMBIN [id number] 02:04:00 Test Item Value Reference Range Interpretation Comments PT PATIENT (test code = PTP) 11.7 SECONDS 9.3-12.9 N INTERNATIONAL NORMAL RATIO 1.03 INR Unit 0.8-1.2 N (test code = INR) NT PRO-BRAIN NATRIURETIC [id number] 01:47:00 Test Item Value Reference Range Interpretation Comments NT PRO-BRAIN NATRIURETIC PEPTI 373 PG/ML 0-100 H (test code = PROBNP) [id number] 01:40:00 Test Item Value Reference Range Interpretation [...] may erich yby method. Completed by Nursing: [id number] 01:40:00 Test Item Value Reference Range Interpretation Comments GLYCOSYLATED HEMOGLOBIN (HA1C) 7.1 % A1C 0.0-5.7 H (test code = GLYHGB) ESTIMATED AVERAGE GLUCOSE (test 157 MG/DLest code = EAG) Notes Date/Time Note Provider Source 2020-01-10 09:23:00-00:00 [id number] [facility] [address] [place] [address] PATIENT NAME: MIRIAM TREJO ADMIT DATE: 0 ACCOUNT NO: [id number] ROOM NO: [facility] AGE: 59 REPORT TYPE: STRESS TEST SEX: F ADMITTING PHYSICIAN: Rahul Dickerson MD ATTENDING PHYSICIAN: Rahul Dickerson MD PROCEDURE: Stress Test STUDY DATE: 12/26/2019 RESULTS OF MYOCARDIAL PERFUSION STRESS TEST Ms. Trejo is a 59-year-old female who was admi tted at [facility] with chest pain. The patient underwent a myocardial perfusion stress test imaging with Myoview wi thout any complication. For rest and stress imaging 10.7, mCi and 32.0 mCi techn etium Myoview was injected intravenously without any complication. Lexiscan 0.4 mg was infused intrav enously without any complication. The resting and stress perfusion i mages showed normal myocardial perfusion. There were no wall motion abnormality and the ejection fraction was about 51%. The patient tolerated th e test without any complication. Dictated By: El Kasper MD WT: STRESS:L.CPS/BERT/NTS Conf#: [id number]/DID#: [id number] Authenticated and Edited by El Kasper MD On 01/10/20 4:08:30 PM at 1611 PATIENT NAME: MIRIAM TREJO [id number] 2019-12-26 16:49:00-00:00 [facility] ([facility]) Hospitalist Discharge Summary REPORT#:[id number] REPORT STATUS: Signed DATE:12/26/19 TIME:1649 PATIENT: MIRIAM TREJO UNIT #: [id number] ROOM[address]BED: [address] : [birth year] AGE: 59 SEX: F ATTEND: Cheyenne Dickerson MD ADM AUTHOR: Calderon Max MD * ALL edits or amendments must be made on the el ectronic/computer document * PCP PCP PCP: PCP: Muriel Monte DO Discharge to: home General Information Date of admission: Observation Start Date: 12/25/19 Date of admission: 12/25/19 Discharge date: 12/26/19 Discharge diagnosis: SEE HOSP COURSE Hospital course: HOSP COURSE 59-year-old female admitted with chest pain Diagnosis, Assessment Plan Problem List/A P: 1. Chest pain 2. HTN (hypertension) 3. Diabetes plan Stress test was done Patient cleared by cardiology for discharge Noted abnormal CT chest from outside ER with martha rivers suspicious for lung malignancy and the patient is advised to follow- up with MD Ramesh where she followed up in the past for breast cancer DC home stable DC time 33 minutes Pt. condition on discharge: improved, stable Med Rec Med Rec Discharge meds: Continue taking these medications: GABAPENTIN ER (GRALISE) 300 MG TAB.SR.24H 1,200 MILLIGRAM ORAL AT BEDTIME CELECOXIB (CeleBREX) 200 MG CAP 200 MILLIGRAM ORAL DAILY NEEDED. as needed f or ARTHRITIS CITALOPRAM (CeleXA) 40 MG TAB 40 MILLIGRAM ORAL DAILY. DULoxetine DR (CYMBALTA) 30 MG CAP.DR 30 MILLIGRAM ORAL TWICE DAILY. LOSARTAN (COZAAR) 50 MG TAB 50 MILLIGRAM ORAL DAILY. rOPINIRole (REQUIP) 1 MG TAB 1 MILLIGRAM ORAL BEDTIME. MIRTAZAPINE (REMERON) 15 MG TAB 7.5 MILLIGRAM ORAL BEDTIME. Discharge Instructions Activity: as tolerated Additional instructions: fup with PCP 3-5 days Prescriptions: on chart Follow-up Appointments Attending Physician: Attending Physician: Calderon Max MD Consulting provider 1: Provider 1: El Kasper MD Quality Current Medications Current medication review: I attest that the foregoing medication list in [facility] medical record is true, accurate, and complete to the best of my knowled ge. Electronically Signed by Calderon Max MD on 12/06 09/25 at 1652 RPT #: [id number] END OF REPORT 2019-12-26 08:56:00-00:00 [facility] ([facility] Cardiology Progress Note REPORT#:[id number] REPORT STATUS: Signed DATE:12/26/19 TIME:0856 PATIENT: MIRIAM TREJO UNIT #: [id number] ROOM/BED: [place] [address] : 61 AGE: 59 SEX: F ATTEND: Cheyenne Dickerson MD ADM AUTHOR: El Kasper MD * ALL edits or amendments must be made on the el ectronic/computer document * Subjective Chief Complaint: no chest pain today Objective General VS/I O: Patient Weight Weight (lb): 243 Weight (oz): 13.3 Weight (kg): 110.600 Physical Exam Head/Eyes: atraumatic, clear cornea Neck: no JVD Cardiovascular: CV assessment: regular rate and rhythm Respiratory: clear to auscultation Abdomen: soft, non-tender Lower extremity: LE assessment: no edema Neuro/TEMPLE MEAT CUTTER: alert, oriented X 3, normal speech, n o motor deficits Review of Systems All systems rev neg: except as marked Diagnosis, Assessment Plan Free Text DxA P Notes Free Text DxA P Notes: Chest pain: recurrent episodes in the last 3 day s DM: medical therapy History of breast ca 10 years ago History of left renal cancer s/p left partial ne phrectomy HTN: medical therpay a breast mass is detected incidentally in CT sca n, so patient should refer to her oncologist for evaluation and treatment , so we proceed with cardiac eval for her current chest pain a nd evaluation of her LV function for possible future chemotherapy Normal ECHO and stress test OK to DC from CV standpoint needs optimization of HTN control as outpatient at 1550 RPT #: [id number] END OF REPORT 2019-12-26 08:21:00-00:00 [id number] [address] PATIENT NAME: MIRIAM TREJO ADMIT DATE: 0 ACCOUNT NO: [id number] ROOM NO: .[facility] AGE: 59 REPORT TYPE: eSTRESS ELECTROCARDIOGRAM SEX: F ADMITTING PHYSICIAN: Rahul Dickerson MD ATTENDING PHYSICIAN: Rahul Dickerson MD Acquisition Time: 2019-12-26 08:21:17 Test Date/ Time Stamp:WedDec 26 2019 08:21:17 Total Exercise Time: 00:01:46 Test Indications: Medications: Protocol: LEXISCAN Max HR: 078 BPM 48% of Pred: 162 BPM Max BP: 136/078 mmHG Max Work Load: 1.0 METS Confirmed by MD Ranjith, El ([id number]) on 1:05:50 PM Referred By: Rahul Dickerson Confirmed by:El post MD at 1306 PATIENT NAME: MIRIAM TREJO [id number] 2019-12-26 02:05:00-00:00 [facility] ([facility]) Clinical Note REPORT#:[id number] REPORT STATUS: Signed DATE:12/26/19 TIME:0205 PATIENT: MIRIAM TREJO UNIT #: [id number] ROOM/BED: [place] [address] : 62 AGE: 59 SEX: F ATTEND: Cheyenne Dickerson MD ADM AUTHOR: Xochitl Brown MD * ALL edits or amendments must be made on the el Canines/computer document * Clinical Note Note: for nuclear stress test in the morning Electronically Signed by Xochitl Brown MD o n 12/26/19 at 0206 RPT #: [id number] END OF REPORT 2019-12-25 16:22:00-00:00 [id number] [facility] [address] [place] [address] PATIENT NAME: MIRIAM TREJO ADMIT DATE: 0 ACCOUNT NO: [id number] ROOM NO: [facility] AGE: 59 REPORT TYPE: eECHOCARDIOGRAM REPORT SEX: F ADMITTING PHYSICIAN: Rahul Dickerson MD ATTENDING PHYSICIAN: Rahul Dickerson MD *[facility]* [address] [place] [address] Transthoracic Echocardiogram Patient: Miriam Trejo Study Date: 12/25/2019 BP: 147 / 83 Location: [facility] URN: [id number] 18 : 1960 Age: 59 Height: 60 in / 152.4 cm Gender: F Weight: 243 lb / 110.5 kg BMI/BSA: 47.6 kg/m 2 / 2.23 m 2 *Ordering Physician: * Sánchez MoserInterpreting Physician: * El Kasper *Lead Trainer: * Susan Gonzalez Indications: Chest Pain, unspecified. Study data: Transthoracic echocardiogram. Proced ure: Transthoracic echocardiography was performed. Image quality wa s adequate. Complete 2D, complete spectral Doppler, and color Doppler . Location: Bedside. Patient status: Observation. Patient room number : S209. Study status: Routine. Findings Left ventricle: The cavity size is normal. Wall thickness is mildly increased. Systolic function is normal. The shelley mated ejection fraction is 65-69%. Wall motion is normal; there are no r egional wall motion abnormalities. Doppler parameters are consistent with abnormal left ventricular relaxation (grade 1 diastolic dysfun ction). Right ventricle: The cavity size is normal. Syst olic function is PATIENT NAME: MIRIAM TREJO 3518 normal. Left atrium: The atrium is normal in size. Right atrium: The atrium is normal in size. Aorta: Aortic root: The aortic root is normal in size. Aortic valve: The valve is structurally normal. The valve is trileaflet. There is no evidence of stenosis. Th ere is no regurgitation. Mitral valve: The annulus is calcified. There is trivial regurgitation. Tricuspid valve: The valve is structurally dottie l. There is trivial regurgitation. Pulmonic valve: The valve is structurally normal . There is trivial regurgitation. Pericardium: A prominent pericardial fat pad is present. There is no pericardial effusion. Pulmonary arteries: The main pulmonary artery is normal-sized. Systemic veins: Inferior vena cava: The vessel is normal in size . Measurements Left ventricle Value Ref Aortic valve continue d Value Ref YUMIKO, LAX 4.8 cm 3.8 - 5.2 Mean grad, S 4.4 mm Hg ----- ESD, LAX 3.0 cm 2.2 - 3.5 Peak grad, S 8.3 mm Hg ----- ESD/bsa, LAX 1.3 cm/m 2 1.3 - 2.1 LVOT/AV, VTI ratio 0.82 ----- FS, LAX 38 % 27 - 45 MICHELL, VTI 3.60 cm 2 ----- PW, ED 1.2 cm 0.6 - 0.9 LVOT/AV, Vpeak ratio 0.73 ----- IVS/PW, ED 1.03 --------- MICHELL, Vmax 3.23 cm 2 ----- EF 68 % 54 - 74 IVRT 114 ms --------- Mitral valve Value Ref E', med alec, TDI 6.8 cm/sec >=7.0 Peak E 0.85 m/sec ----- E/e', med alec, TDI 13 --------- Peak A 1.22 m/sec ----- Decel time 230 ms ----- LVOT Value Ref PHT 97 ms ----- Diam, S 2.37 cm --------- Peak grad, D 2.9 mm Hg ----- Area 4.4 cm 2 --------- Peak E/A ratio 0.7 ----- Peak karyna, S 1.06 m/sec --------- MVA, PHT 2.3 cm 2 ----- Mean karyna, S 0.78 m/sec --------- PATIENT NAME: MIRIAM TREJO 3518 VTI, S 26.0 cm --------- Pulmonic valve Value Ref Peak grad, S 4 mm Hg --------- NC peak v 1.35 m/sec ----- Mean grad, S 3 mm Hg --------- NC peak grad 7 mm Hg ----- SV 114 ml --------- NC grad, ED 7 mm Hg ----- SV/bsa 51 ml/m 2 --------- Tricuspid valve Value Ref Ventricular septum Value Ref TR peak v 2.01 m/sec <=2.8 IVS, ED 1.2 cm 0.6 - 0.9 Peak RV-RA grad, S 16 mm Hg ----- Right ventricle Value Ref Aortic root Value Ref Pressure, S 21 mm Hg --------- Root diam, ED MM 3.68 cm ----- Left atrium Value Ref Pulmonary artery Value Ref AP dim, ES MM 3.5 cm 2.7 - 3.8 Pressure, S 14.3 mm Hg ----- LA/Ao root ratio, MM 0.96 --------- Systemic veins Value Ref Aortic valve Value Ref Estimated CVP 5 mm Hg ----- Leaflet sep, MM 1.95 cm --------- Peak v, S 1.44 m/sec --------- Pulmonary veins Value Ref Mean v, S 0.99 m/sec --------- A rev duration 126 ms ----- VTI, S 31.8 cm --------- Conclusions Summary: 1. Left ventricle: The cavity size is normal. Wa ll thickness is mildly increased. Systolic function is normal. The est imated ejection fraction is 65-69%. Wall motion is normal; ther e are no regional wall motion abnormalities. Doppler parameters are co nsistent with abnormal left ventricular relaxation (grade 1 diastolic dysfunction). 2. Right ventricle: The RV pressure during systo le by Doppler is 21 mm Hg. 3. Mitral valve: The annulus is calcified. Prepared and electronically signed by PATIENT NAME: MIRIAM TREJO [id number] [place] 12/25/2019 16:22 at 1622 PATIENT NAME: MIRIAM TREJO [id number] 2019-12-25 13:32:00-00:00 [facility] ([facility]) Cardiology Consultation REPORT#:[id number] REPORT STATUS: Signed DATE:12/25/19 TIME:1332 PATIENT: MIRIAM TREJO UNIT #: [id number] ROOM/BED: [place] [id number] : 61 AGE: 59 SEX: F ATTEND: Racquel Dickerson MD ADM AUTHOR: El Kasper MD * ALL edits or amendments must be made on the el ectronic/computer document * History of Present Illness Free Text HPI Notes Free Text HPI Notes: 59 y/o female with PMHx T2DM, HTN, Pancr eatitis, anxiety, neuropathy, restless leg syndrome, rt breast canc er, left kidny cancer, and sz comes in from [facility] for chest pain that started yesterday at 8 a. m which then subsided after taking ASA 325 mg once, pt reported the pain started again about 3 pm and took anothe ASA 325 mg. pt reported she initially tho ugh it was pleursy but then reported the pain felt like thing was sitting on top of her chest. the pain radiated to the back and up the left shoulder. p t reported nausea associated with the Chest pain. currently chest pain is 5/1 0 on nuemeric pain scale. History - Adult longitudinal Past medical history: Reports: Cancer (rigth breast/left kidney), Diab etes mellitus, Hypertension, Seizure disorder, Pancreatitis. Additional medical history: anxiety neuropathy restless leg syndrome chemo 2007 RAD X45 sessions 2007 Past surgical history: Reports: . Additional surgical history: partial nephrectomy, Right lumpectomy w/3 lymph nodes removed rt knee meniscus repair gastric bypass Alcohol use: Alcohol use (socially) Drug use: Denies recreational drugs Smoking status for patients 13 years old or olde r: Former Smoker Allergies: Coded Allergies: Sulfa (Sulfonamide Antibiotics) (Mild, HAIR FALL S OUT 04/10/14) DRUG INGREDIENT Evert SULFA DRUGS Uncoded Allergies: SULFA DRUGS (Mild, HAIR FALLS 04/10/14) No Known Contrast Allergies (03/02/09) No Known Food Allergies (03/02/09) No Known Other Allergies (03/02/09) Review of Systems Cardiovascular: Reports: chest pain. All systems rev neg: except as marked Objective Physical Exam VS/I O: Patient Weight Weight (lb): 243 Weight (oz): 13.3 Weight (kg): 110.600 General appearance: alert, awake ENT: moist mucosal membranes Cardiovascular: CV assessment: regular rate and rhythm Respiratory: clear to auscultation Abdomen: soft, non-tender Neuro/TEMPLE MEAT CUTTER: alert, oriented X 3, normal reflexes, normal speech Results Results: labs reviewed, vital signs stable, rhyt hm personally rev'd, x-ray personally reviewed, current med profile rev'd Diagnosis, Assessment Plan Problem List/A P: 1. Chest pain 2. Hematuria 3. UTI (urinary tract infection) 4. HTN (hypertension) 5. Diabetes Free Text DxA P Notes Free Text DxA P Notes: Chest pain: recurrent episodes in the last 3 day s DM: medical therapy History of breast ca 10 years ago History of left renal cancer s/p left partial ne phrectomy HTN: medical therpay we proceed with stress test and echo a breast mass is detected incidentally in CT sca n, so patient should refer to her oncologist for evaluation and treatment , so we proceed with cardiac eval for her current chest pain a nd evaluation of her LV function for possible future chemotherapy at 1548 RPT #: [id number] END OF REPORT 2019-12-25 00:32:00-00:00 [facility] ([facility]) Hospitalist History Physical REPORT#:[id number] REPORT STATUS: Signed DATE:12/25/19 TIME:31 PATIENT: MIRIAM TREJO UNIT #: [id number] ROOM/BED: [place] [address] : 61 AGE: 59 SEX: F ATTEND: Cheyenne Dickerson MD ADM AUTHOR: Sánchez Moser PRINTER'S ASSISTANT * ALL edits or amendments must be made on the [employer]/computer document * History of Present Illness HPI Chief complaint: Chest pain PCP: PCP: Muriel Monte DO HPI: 59 y/o female with PMHx T2DM, HTN, Pancr eatitis, anxiety, neuropathy, restless leg syndrome, rt breast can er, left kidny cancer, and sz comes in from [facility] for chest pain that started yesterday at 8 a. m which then subsided after taking ASA 325 mg once, pt reported the pain started again about 3 pm and took anothe ASA 325 mg. pt reported she initially tho ugh it was pleursy but then reported the pain felt like thing was sitting on top of her chest. the pain radiated to the back and up the left shoulder. p t reported nausea associated with the Chest pain. currently chest pain is 5/1 0 on nuemeric pain scale. Free Text HPI Notes Free Text HPI Notes: diagnostics from [facility] CTA chest w/contrast no PE Spiculated 1.7 cm rt breast mass, concerning for malignancy 0.6 cm left lower lobe nodule cxr negative d-dimer <100 top <0.05, ckmb 2.8, glu 142 bun 12/creat 0.6 na 140 k 4.1 cl 101 co2 28 wbc 5.2 hgb 14.1 hct 42.8 plt 193 History Past medical history: Reports: Cancer (rigth breast/left kidney), Diab etes mellitus, Hypertension, Seizure disorder, Pancreatitis. Additional medical history: anxiety neuropathy restless leg syndrome chemo 2007 RAD X45 sessions 2006 Past surgical history: Reports: . Additional surgical history: partial nephrectomy, Right lumpectomy w/3 lymph nodes removed rt knee meniscus repair gastric bypass Alcohol use: Alcohol use (socially) Drug use: Denies recreational drugs Smoking status for patients 13 years old or olde r: Former Smoker Medication/Allergy-Vaccine Hx Home Medications: CELECOXIB (CeleBREX) 200 MG PO DAILY PRN PRN ART HRITIS CITALOPRAM (CeleXA) 40 MG PO DAILY DULoxetine DR (CYMBALTA) 30 MG PO BID GABAPENTIN ER (GRALISE) 1,800 MG PO QHS LOSARTAN (COZAAR) 50 MG PO DAILY rOPINIRole (REQUIP) 2 MG PO ASDIR Discontinued Medications CIPROFLOXACIN (CIPRO) 500 MG PO Q12H Discontinued reason: Patient stopped taking EZETIMIBE (ZETIA) 10 MG PO BEDTIME Discontinued reason: Patient stopped taking INSULIN GLARGINE (LANTUS) 60 UNITS SUBQ BEDTIME Discontinued reason: Patient stopped taking INSULIN LISPRO PROTAM/INSULI N LISPRO (HumaLOG Mix 50/50 KWIKPEN) 8 UNITS SQ QID Discontinued reason: Patient stopped taking traMADol (ULTRAM) 50 MG PO Q6H PRN PRN PAIN Discontinued reason: Patient stopped taking Allergies: Coded Allergies: Sulfa (Sulfonamide Antibiotics) (Mild, HAIR FALL S OUT 04/10/14) DRUG INGREDIENT Evert SULFA DRUGS Uncoded Allergies: SULFA DRUGS (Mild, HAIR FALLS 04/10/14) No Known Contrast Allergies (03/02/09) No Known Food Allergies (03/02/09) No Known Other Allergies (03/02/09) Review of Systems Cardiovascular: Reports: chest pain, other (left jaw pain). All systems rev neg: except as marked Objective General VS/I O: Vital Signs: Date Time Temp Pulse Resp B/P B/P Pulse O2 O2 Flow FiO2 Mean Ox Delivery Rate 12/24 0034 98.2 73 18 128/85 99.3 97 Room air Patient Weight Weight (lb): Weight (oz): Weight (kg): Diagnosis, Assessment Plan Problem List/A P: 1. Chest pain 2. HTN (hypertension) 3. Diabetes Code status: full code Plan discussed with: patient, nurse Free Text DxA P Notes Free text DxA P notes: 1. Chest pain 2. HTN (hypertension) 3. Diabetes plan Trop x2, 1st in ER negative site monitor hydralazine iv prn b/p control cbc/bmp/bnp/hgba1c 2D Echo in a.m. po pain management insulin sliding scale with glucose fingers stick AC/HS Prophylaxis GI/DVT (Pepcid/heparin) Quality Current Medications Current medication review: I attest that the foregoing medication list in t he medical record is true, accurate, and complete to the best of my knowled ge. Unable to obtain: Unable to obtain an accurate home medica tion list at this time. The patient is in an urgent or emergent medical situation where time is of the essence. To delay treatment would jeopardize the pat ient's health status on the day of the encounter. VTE Prophylaxis VTE prophylaxis initiated: yes BMI Screening > 25 or < 18.5 Patient's BMI: Current BMI: HTN Screening/Follow-up Last documented vitals: Last Documented: Result Date Time Pulse Ox 97 12/24 003 B/P 128/85 12/24 0034 B/P Mean 99.3 12/24 003 O2 Delivery Room air 12/24 33 Temp 98.2 12/24 33 Pulse 73 12/24 0034 Resp 18 12/24 0034 B/P assess/follow-up: pre-existing hx of HTN Blood pressure ranges/guide: Screening for Hypertension and follow up measure #317 Blood pressure parameters Normal B/P SBP </= 119 DBP </= 79 Pre-hypertensive SBP 120-139 DBP 80-89 Hypertensive SBP >/= 140 DBP >/= 90 at 0111 RPT #: [id number] END OF REPORT 2019-12-25 00:32:00-00:00 [facility] ([facility]) Hospitalist History Physical REPORT#:[id number] REPORT STATUS: Signed DATE:12/25/19 TIME:31 PATIENT: MIRIAM TREJO UNIT #: [id number] ROOM/BED: [address]-1 : 61 AGE: 59 SEX: F ATTEND: Cheyenne Dickerson MD ADM AUTHOR: Sánchez Moser NP * ALL edits or amendments must be made on the [employer]/computer document * Sánchez Moser NP 12/25/19 0032: History of Present Illness HPI Chief complaint: Chest pain PCP: PCP: Muriel Monte DO HPI: 59 y/o female with PMHx T2DM, HTN, Pancr eatitis, anxiety, neuropathy, restless leg syndrome, rt breast canc er, left kidny cancer, and sz comes in from [facility] for chest pain that started yesterday at 8 a. m which then subsided after taking ASA 325 mg once, pt reported the pain started again about 3 pm and took anothe ASA 325 mg. pt reported she initially tho ugh it was pleursy but then reported the pain felt like thing was sitting on top of her chest. the pain radiated to the back and up the left shoulder. p t reported nausea associated with the Chest pain. currently chest pain is 5/1 0 on nuemeric pain scale. Free Text HPI Notes Free Text HPI Notes: diagnostics from [facility] CTA chest w/contrast no PE Spiculated 1.7 cm rt breast mass, concerning for malignancy 0.6 cm left lower lobe nodule cxr negative d-dimer <100 top <0.05, ckmb 2.8, glu 142 bun 12/creat 0.6 na 140 k 4.1 cl 101 co2 28 wbc 5.2 hgb 14.1 hct 42.8 plt 193 History Past medical history: Reports: Cancer (rigth breast/left kidney), Diab etes mellitus, Hypertension, Seizure disorder, Pancreatitis. Additional medical history: anxiety neuropathy restless leg syndrome chemo 2007 RAD X45 sessions 2007 Past surgical history: Reports: . Additional surgical history: partial nephrectomy, Right lumpectomy w/3 lymph nodes removed rt knee meniscus repair gastric bypass Alcohol use: Alcohol use (socially) Drug use: Denies recreational drugs Smoking status for patients 13 years old or olde r: Former Smoker Medication/Allergy-Vaccine Hx Allergies: Coded Allergies: Sulfa (Sulfonamide Antibiotics) (Mild, HAIR FALL S OUT 04/10/14) DRUG INGREDIENT Evert SULFA DRUGS Uncoded Allergies: SULFA DRUGS (Mild, HAIR FALLS 04/10/14) No Known Contrast Allergies (03/02/09) No Known Food Allergies (03/02/09) No Known Other Allergies (03/02/09) Review of Systems Cardiovascular: Reports: chest pain, other (left jaw pain). All systems rev neg: except as marked Objective General VS/I O: Vital Signs: Date Time Temp Pulse Resp B/P B/P Pulse O2 O2 Flow FiO2 Mean Ox Delivery Rate 12/24 0034 98.2 73 18 128/85 99.3 97 Room air Patient Weight Weight (lb): Weight (oz): Weight (kg): Diagnosis, Assessment Plan Problem List/A P: 1. Chest pain 2. HTN (hypertension) 3. Diabetes Code status: full code Plan discussed with: patient, nurse Free Text DxA P Notes Free text DxA P notes: 1. Chest pain 2. HTN (hypertension) 3. Diabetes plan Trop x2, 1st in ER negative site monitor hydralazine iv prn b/p control cbc/bmp/bnp/hgba1c 2D Echo in a.m. po pain management insulin sliding scale with glucose fingers stick AC/HS Prophylaxis GI/DVT (Pepcid/heparin) Quality Current Medications Current medication review: I attest that the foregoing medication list in t he medical record is true, accurate, and complete to the best of my knowled ge. Unable to obtain: Unable to obtain an accurate home medica tion list at this time. The patient is in an urgent or emergent medical situation where time is of the essence. To delay treatment would jeopardize the pat ient's health status on the day of the encounter. VTE Prophylaxis VTE prophylaxis initiated: yes BMI Screening > 25 or < 18.5 Patient's BMI: Current BMI: HTN Screening/Follow-up Last documented vitals: Last Documented: Result Date Time Pulse Ox 97 12/24 0034 B/P 128/85 12/24 0034 B/P Mean 99.3 12/24 0034 O2 Delivery Room air 12/24 33 Temp 98.2 12/24 003 Pulse 73 12/24 0034 Resp 18 12/24 0034 B/P assess/follow-up: pre-existing hx of HTN Blood pressure ranges/guide: Screening for Hypertension and follow up measure #317 Blood pressure parameters Normal B/P SBP </= 119 DBP </= 79 Pre-hypertensive SBP 120-139 DBP 80-89 Hypertensive SBP >/= 140 DBP >/= 90 Rahul Dickerson 12/25/19 1328: History Medication/Allergy-Vaccine Hx Home Medications: CELECOXIB (CeleBREX) 200 MG PO DAILY PRN PRN ART HRITIS CITALOPRAM (CeleXA) 40 MG PO DAILY DULoxetine DR (CYMBALTA) 30 MG PO BID GABAPENTIN ER (GRALISE) 1,200 MG PO QHS LOSARTAN (COZAAR) 50 MG PO DAILY rOPINIRole (REQUIP) 1 MG PO BEDTIME Discontinued Medications CIPROFLOXACIN (CIPRO) 500 MG PO Q12H Discontinued reason: Patient stopped taking EZETIMIBE (ZETIA) 10 MG PO BEDTIME Discontinued reason: Patient stopped taking INSULIN GLARGINE (LANTUS) 60 UNITS SUBQ BEDTIME Discontinued reason: Patient stopped taking INSULIN LISPRO PROTAM/INSULI N LISPRO (HumaLOG Mix 50/50 KWIKPEN) 8 UNITS SQ QID Discontinued reason: Patient stopped taking rOPINIRole (REQUIP) 2 MG PO NIGHT 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
[2023-02-10 13:31] LABS: Absolute Lymphocytes (CBC) 1.4 K/uL (0.7-4.9); Hematocrit 40.2 % (36.0-45.0); Lymphocytes % 32.7 % (15.3-44.8); MCV 96.8 fL (80-100); MPV 7.8 fL (7.6-11.3); RBC Red Blood Cell Count 4.15 M/uL (3.86-4.86)
[2023-02-10 13:41] LABS: Protime INR 0.93
[2023-02-10 13:48] LABS: Specific Gravity 1.028 (1.005-1.030); Urine Bacteria None Seen /HPF (<20); Urine Bilirubin NEGATIVE (Negative); Urine Blood Trace (Negative); Urine Clarity Clear (Clear); Urine Color Colorless (Yellow); Urine Glucose 4+ (Over) (Negative); Urine Protein NEGATIVE (Negative); Urine RBC <5 /HPF (None Seen); Urine Urobilinogen Normal (Normal); Urine pH 6.5 (5.0-7.0)
[2023-02-10] MEDS ORDERED: THIAMINE 200 MG/2 ML INJ ONE (13:48)
[2023-02-10 13:50] LABS: Albumin 3.4 g/dL (3.4-5.0); Bilirubin Direct 0.2 mg/dL (0-0.2); Bilirubin Indirect, Calculated 0.4 mg/dL (0.2-0.8); Bilirubin Total 0.6 mg/dL (0.2-1.0); Magnesium 1.8 mg/dL (1.6-2.4); Potassium 4.8 mEq/L (3.5-5.1); Protein, Total 6.4 g/dL (6.4-8.2); Troponin High Sensitivity 13.1 pg/mL (<58.9)
[2023-02-10 14:00] LABS: Barbiturates NEGATIVE (NEGATIVE); Benzodiazepines POSITIVE (NEGATIVE); Cocaine NEGATIVE (NEGATIVE); METHAMPHETAM NEGATIVE (NEGATIVE); Methadone NEGATIVE (NEGATIVE); Opiates NEGATIVE (NEGATIVE); Phencyclidine NEGATIVE (NEGATIVE); THC Cannibis NEGATIVE (NEGATIVE)
--- NOTE | 2023-02-10 14:21 | RAD REPORT ---
EXAM DESCRIPTION: CT - Head Brain Wo Cont - 02/10/2023 1:26 pm CLINICAL HISTORY: CONFUSED COMPARISON: HEAD BRAIN W O CONTRAST dated 11/21/2009; HEAD BRAIN W O CONTRAST dated 08/26/2008 TECHNIQUE: Noncontrast head CT images ad were obtained without IV contrast. Multiplanar reformats we re generated and reviewed. All CT scans are performed using dose optimization technique as appropriate and may include automated exposure control or mA/KV adjustment according to patient size. FINDINGS: No intracranial hemorrhage, mass, or edema. Midline structures are unremarkable. Normal ventricular caliber for age. Small hypoattenuating focus within the right basal ganglia region is stable, could reflect sequelae o f a small remote infarct or prominent perivascular space. Damon-white matter differentiation is otherw ise preserved, without evidence of acute infarct. No abnormal extra-axial fluid collections. Mastoid air cells and visualized portions of the paranasal sinuses are clear. No acute bony findings. IMPRESSION: No evidence of an acute intracranial process. Stable findings as above.
--- NOTE | 2023-02-10 14:29 | RAD REPORT ---
EXAM DESCRIPTION: Bubbat Single View02/10/2023 1:31 pm CLINICAL HISTORY: AMS COMPARISON: Chest Single View dated 08/16/2016; CHEST SINGLE VIEW dated 08/30/2015; CHEST PA AND LAT 2 VIEW dated 04/25/2013; CHEST SINGLE VIEW dated 11/21/2009 TECHNIQUE: Portable AP view of the chest. FINDINGS: The lungs are clear. Rounded slightly hyperdense 5-6 millimeter nodule in the left mid noemi g, may represent a calcified granuloma. No pneumothorax or effusion. The cardiomediastinal contours a re unremarkable. IMPRESSION: No acute cardiopulmonary process.
--- NOTE | 2023-02-10 14:54 | EDPHYS ---
Physician Documentation [facility] Name: Allyson Trejo Age: 62 yrs Sex: Female : 1960 Arrival Date: 02/10/2023 Time: 12:11 Bed 19 Private MD: ED Physician Talon Seo HPI: 02/10 13:36 This 62 yrs old Female presents to ER via Ambulatory with complaints of CONTINULLY rn SHAKING/ OFF BALANCE. 13:36 The patient presents with confusion, decreased responsiveness, disorientation. Onset: rn The symptoms/episode began/occurred yesterday. Possible causes: unknown. Current symptoms: In the emergency department the patient's symptoms are unchanged from the initial presentation. The patient has not experienced similar symptoms in the past. The patient has been recently seen by a physician:. Family member reports last known normal last night, woke up confused, slurred speech, tremors, trouble walking, and not making sense. + chronic alcoholism, daily drinker, has been falling. Seen at outside ER, diagnosed with with "neurological problem" and sent home, came here because not better. Also doubled her ropinirole the last couple of days to help her sleep. No fever. . Historical: - Allergies: 12:26 Sulfa (Sulfonamide Antibiotics); hb - Home Meds: 12:26 aspirin 81 mg Oral chew 1 tab once daily [Active]; citalopram 40 mg tab 1 tab once hb daily [Active]; Cymbalta 60 mg Oral cpDR 1 cap once daily [Active]; gabapentin 1800 mg Oral tab 1 cap once daily [Active]; losartan 40mg tab Oral tab 1 tab once daily [Active]; Plavix 75 mg Oral tab 1 tab once daily [Active]; ropinirole 1 mg oral tablet daily [Active]; - PMHx: 12:26 breast cancer; Diabetes - IDDM; Hypertension; kidney cancer; hb - PSHx: 12:26 Coronary artery stent; section; Gastric Bypass; partial left kidney removal; hb Right lumpectomy; - Immunization history:: Adult Immunizations up to date, Client reports receiving the 2nd dose of the Covid vaccine. - Family history:: not pertinent. - Social history:: Smoking status: Patient denies any tobacco usage or history of. Patient/guardian denies using alcohol, street drugs. - Hospitalizations: : No recent hospitalization is reported. ROS: 13:36 Constitutional: Negative for fever, chills, and weight loss, Eyes: Negative for injury, rn pain, redness, and discharge, Neck: Negative for injury, pain, and swelling, Cardiovascular: Negative for chest pain, palpitations, and edema, Respiratory: Negative for shortness of breath, cough, wheezing, and pleuritic chest pain, Abdomen/GI: Negative for abdominal pain, nausea, vomiting, diarrhea, and constipation, Back: Negative for injury and pain, MS/Extremity: Negative for injury and deformity, Skin: Negative for injury, rash, and discoloration, Neuro: Negative for headache, and seizure. Exam: 13:36 Constitutional: This is a well developed, well nourished patient who is somnolent, rn awakens to tactile stimulation Head/Face: Normocephalic, atraumatic. Eyes: No nystagmus Neck: No Meningismus. Cardiovascular: Regular rate and rhythm. No pulse deficits. Respiratory: No increased work of breathing, no retractions or nasal flaring. Abdomen/GI: soft, non-tender Skin: Warm, dry MS/ Extremity: Pulses equal, no cyanosis. Neuro: Somnolent, awakens to voice and tactile stimulation, 5/5 strength throughout, sensation intact, unsteady when sitting up in bed, gait not attempted. Oriented to person and time, not place. 14:14 ECG was reviewed by the Attending Physician. rn Vital Signs: 12:22 BP 173 / 98; Pulse 89; Resp 18; Temp 98.3; Pulse Ox 100% ; Weight 83.91 kg; Height 5 hb ft. 5 in. ; Pain 4/10; 13:55 BP 149 / 71; Pulse 69; Resp 18; Pulse Ox 99% on R/A; ld1 14:39 BP 136 / 108; Pulse 68; Resp 18; Pulse Ox 98% on R/A; sg5 15:11 BP 139 / 121; Pulse 18; Resp 65; Pulse Ox 98% on R/A; sg5 15:29 BP 151 / 89; Pulse 70; Resp 18; Pulse Ox 97% on R/A; sg5 16:29 BP 114 / 94; Pulse 69; Resp 18; Temp 98.4; Pulse Ox 99% on R/A; sg5 12:22 Body Mass Index 30.79 (83.91 kg, 165.1 cm) hb 12:22 Pain Scale: Adult hb MDM: 12:29 Patient medically screened. rn 14:51 Differential Diagnosis: CVA, electrolyte abnormality, alcohol intoxication, rn intracranial bleed, overdose, pneumonia, TIA, UTI, volume depletion, wernicke encephalopathy. Data reviewed: vital signs, nurses notes, lab test result(s), radiologic studies, CT scan, plain films, and as a result, I will admit patient. Consideration of Admission/Observation Patient was admitted/placed on observation. Escalation of care including admission/observation considered. Management of patient was discussed with the following: Hospitalist: . I considered the following discharge prescriptions or medication management in the emergency department Medications were administered in the Emergency Department. See MAR. Counseling: I had a detailed discussion with the patient and/or guardian regarding: the historical points, exam findings, and any diagnostic results supporting the discharge/admit diagnosis, lab results, radiology results, the need for further work-up and treatment in the hospital. Response to treatment: the patient's symptoms have mildly improved after treatment, and as a result, I will admit patient. 02/10 12:46 Order name: Basic Metabolic Panel; Complete Time: 13:55 02/10 12:46 Order name: CBC with Diff; Complete Time: 13:55 02/10 12:46 Order name: Hepatic Function; Complete Time: 13:55 rn 02/10 12:46 Order name: Magnesium; Complete Time: 13:55 02/10 12:46 Order name: Protime (+inr); Complete Time: 13:55 02/10 12:46 Order name: Ptt, Activated; Complete Time: 13:55 rn 02/10 12:46 Order name: Troponin High Sensitivity; Complete Time: 13:55 rn 02/10 12:46 Order name: UDS; Complete Time: 14: 02/10 12:46 Order name: Urinalysis w/ reflexes; Complete Time: 13:55 rn 02/10 12:50 Order name: B12; Complete Time: 14:13 rn 02/10 12:50 Order name: ETOH Level; Complete Time: 13:55 rn 02/10 16:44 Order name: Magnesium; Complete Time: 19:29 EDMS 02/10 16:44 Order name: Phosphorus; Complete Time: 19:29 EDMS 02/10 16:45 Order name: T4 Free; Complete Time: 19:29 EDMS 02/10 16:45 Order name: Thyroid Stimulating Hormone; Complete Time: 19:29 EDMS 02/10 16:45 Order name: Urinalysis w/ reflexes EDMS 02/10 16:45 Order name: Basic Metabolic Panel EDMS 02/10 16:45 Order name: Basic Metabolic Panel EDOK 02/10 16:45 Order name: CBC with Automated Diff EDMS 02/10 16:45 Order name: CBC with Automated Diff EDMS 02/10 20:40 Order name: Glucose, Ancillary Testing EDOK 02/10 12:46 Order name: CT Head Brain wo Cont; Complete Time: 14:24 rn 02/10 12:46 Order name: Chest Single View XRAY; Complete Time: 14:39 rn 02/10 16:47 Order name: Brain Wo Cont; Complete Time: 20:15 EDMS 02/10 12:46 Order name: EKG; Complete Time: 12:47 rn 02/10 16:44 Order name: 60g Consistent Carbohydrate (ADA 1800/2000) EDOK 02/10 16:44 Order name: CONS Physician Consult EDOK 02/10 16:45 Order name: Physical Therapy Consult EDOK 02/10 12:46 Order name: Cardiac monitoring; Complete Time: 13:39 rn 02/10 12:46 Order name: EKG - Nurse/Tech; Complete Time: 13:09 rn 02/10 12:46 Order name: IV Saline Lock; Complete Time: 13:18 rn 02/10 12:46 Order name: Labs collected and sent; Complete Time: 13:18 rn 02/10 12:46 Order name: O2 Per Protocol; Complete Time: 13:39 rn 02/10 12:46 Order name: O2 Sat Monitoring; Complete Time: 13:39 rn EC:14 Rate is 76 beats/min. Rhythm is regular. QRS [place] is Normal. [place] interval is normal. QRS rn interval is normal. QT interval is normal. No Q waves. T waves are Normal. No ST changes noted. Clinical impression: NSR w/ Non-specific ST/T Changes. Interpreted by me. Reviewed by me. Administered Medications: 13:44 Drug: Thiamine IV 100 mg Route: IV; Rate: calculated rate; Site: left antecubital; ld1 Disposition Summary: 02/10/23 14:53 Hospitalization Ordered Hospitalization Status: Observation rn Provider: Curtis Tobias rn Location: Telemetry/MedSurg (observation) rn Condition: Stable rn Problem: new rn Symptoms: have improved rn Bed/Room Type: Standard rn Room Assignment: 431(02/10/23 22:56) cg Diagnosis - Altered mental status, unspecified rn - Alcohol dependence rn Forms: - Medication Reconciliation Form rn - SBAR form rn Signatures: Dispatcher [employer] EDMS Talon Seo MD MD rn Attema, Lee, MANAGER ROOFING-C MANAGER ROOFING-[facility] Michelle Jimenez RN RN cg Damaris Colon RN RN Brenda Luz RN RN ld1 Corrections: (The following items were deleted from the chart) 22:56 14:53 rn cg
--- NOTE | 2023-02-10 14:54 | ER ---
Nurse's Notes [facility] Name: Allyson Trejo Age: 62 yrs Sex: Female : 1960 Arrival Date: 02/10/2023 Time: 12:11 Bed 19 Private MD: Diagnosis: Altered mental status, unspecified;Alcohol dependence Presentation: 02/10 12:22 Chief complaint: Twitching, restlessness, slurred speech, and confusion x 5 days, worse hb today. Has been out of ropinirole x 2 days. Coronavirus screen: At this time, the client does not indicate any symptoms associated with coronavirus-19. Ebola Screen: No symptoms or risks identified at this time. Initial Sepsis Screen: Does the patient meet any 2 criteria? No. Patient's initial sepsis screen is negative. Does the patient have a suspected source of infection? No. Patient's initial sepsis screen is negative. Risk Assessment: Do you want to hurt yourself or someone else? Patient reports no desire to harm self or others. Onset of symptoms was February 05, 2023. 12:22 Method Of Arrival: Ambulatory hb 12:22 Acuity: SANCHEZ 2 hb Historical: - Allergies: 12:26 Sulfa (Sulfonamide Antibiotics); hb - Home Meds: 12:26 aspirin 81 mg Oral chew 1 tab once daily [Active]; citalopram 40 mg tab 1 tab once hb daily [Active]; Cymbalta 60 mg Oral cpDR 1 cap once daily [Active]; gabapentin 1800 mg Oral tab 1 cap once daily [Active]; losartan 40mg tab Oral tab 1 tab once daily [Active]; Plavix 75 mg Oral tab 1 tab once daily [Active]; ropinirole 1 mg oral tablet daily [Active]; - PMHx: 12:26 breast cancer; Diabetes - IDDM; Hypertension; kidney cancer; hb - PSHx: 12:26 Coronary artery stent; section; Gastric Bypass; partial left kidney removal; hb Right lumpectomy; - Immunization history:: Adult Immunizations up to date, Client reports receiving the 2nd dose of the Covid vaccine. - Family history:: not pertinent. - Social history:: Smoking status: Patient denies any tobacco usage or history of. Patient/guardian denies using alcohol, street drugs. - Hospitalizations: : No recent hospitalization is reported. Screenin:00 [facility] ED Fall Risk Assessment (Adult) History of falling in the last 3 months, ld1 including since admission No falls in past 3 months (0 pts). Abuse screen: Denies threats or abuse. Denies injuries from another. Nutritional screening: No deficits noted. Tuberculosis screening: No symptoms or risk factors identified. Assessment: 13:10 General: Appears in no apparent distress. comfortable, Behavior is cooperative, sg5 appropriate for age, restless, Reports shaking. Pain: Denies pain. Neuro: Level of Consciousness is awake, alert, obeys commands, Oriented to person, place, time, situation, Appropriate for age. Cardiovascular: Capillary refill < 3 seconds Patient's skin is warm and dry. Respiratory: Airway is patent Trachea midline Respiratory effort is even, unlabored, Respiratory pattern is regular, symmetrical. GI: Abdomen is round non-distended. : No signs and/or symptoms were reported regarding the genitourinary system. EENT: No signs and/or symptoms were reported regarding the EENT system. EENT: Reports slurred speech. Derm: No signs and/or symptoms reported regarding the dermatologic system. 13:59 Reassessment: No changes from previously documented assessment. Pt unable to sit still, ld1 reports feeling anxious. Denies pain. Patient states symptoms have not improved. 16:49 Reassessment: Patient and/or family updated on plan of care and expected duration. Pain sg5 level reassessed. Patient is alert, oriented x 3, equal unlabored respirations, skin warm/dry/pink. Patient states symptoms have improved. Vital Signs: 12:22 BP 173 / 98; Pulse 89; Resp 18; Temp 98.3; Pulse Ox 100% ; Weight 83.91 kg; Height 5 hb ft. 5 in. ; Pain 4/10; 13:55 BP 149 / 71; Pulse 69; Resp 18; Pulse Ox 99% on R/A; ld1 14:39 BP 136 / 108; Pulse 68; Resp 18; Pulse Ox 98% on R/A; sg5 15:11 BP 139 / 121; Pulse 18; Resp 65; Pulse Ox 98% on R/A; sg5 15:29 BP 151 / 89; Pulse 70; Resp 18; Pulse Ox 97% on R/A; sg5 16:29 BP 114 / 94; Pulse 69; Resp 18; Temp 98.4; Pulse Ox 99% on R/A; sg5 12:22 Body Mass Index 30.79 (83.91 kg, 165.1 cm) hb 12:22 Pain Scale: Adult hb ED Course: 12:13 Patient arrived in ED. ts1 12:26 Triage completed. hb 12:28 Jo Mirza RN is Primary Nurse. sg5 12:29 Talon Seo MD is Attending Physician. rn 13:18 Initial lab(s) drawn, by ED staff, sent to lab. Inserted saline lock: 20 gauge in left em1 forearm, using aseptic technique. Blood collected. 13:27 CT Head Brain wo Cont In Process Unspecified. EDMS 13:33 Chest Single View XRAY In Process Unspecified. EDMS 14:00 No provider procedures requiring assistance completed. ld1 14:00 Patient has correct armband on for positive identification. Placed in gown. Bed in low ld1 position. Call light in reach. Side rails up X2. clinical programmer on. Pulse ox on. NIBP on. Door closed. Noise minimized. Warm blanket given. 14:53 Curtis Tobias MD is Hospitalizing Provider. rn 19:10 Arm band placed on right wrist. ha1 19:15 Report received from received report from NASIMA Osorio. ha1 02/11 00:13 Patient admitted, IV remains in place. ha1 Administered Medications: 02/10 13:44 Drug: Thiamine IV 100 mg Route: IV; Rate: calculated rate; Site: left antecubital; ld1 Medication: 02/11 00:12 VIS not applicable for this client. ha1 Outcome: 02/10 14:53 Decision to Hospitalize by Provider. rn 02/11 00:11 Admitted to Tele accompanied by tech, via stretcher, room 431, with chart, Report ha1 called to NASIMA Rolon Condition: stable Discharge instructions given to patient, Instructed on the need for admit, Demonstrated understanding of instructions. 00:13 Patient left the ED. ha1 Signatures: Dispatcher [employer] EDMS Talon Seo MD MD rn Martinez, Eric em1 Damaris Colon RN RN Brenda Luz RN RN ld1 Dilma Reed RN RN ha Jo Mirza RN RN sg5 Wilkinson, Rosario, PAS PAS ts1
[2023-02-10] MEDS ORDERED: ACETAMINOPHEN 325 MG TABLET PO PRN (16:36)
[2023-02-10] MEDS ORDERED: TRAMADOL HCL 50 MG TAB PO PRN (16:36)
[2023-02-10] MEDS ORDERED: ONDANSETRON 4 MG/2 ML VIAL IV PRN (16:41)
[2023-02-10] MEDS ORDERED: HYDRALAZINE HCL 20 MG/ML VIAL IV PRN (16:45)
--- NOTE | 2023-02-10 16:45 | P.HP ---
Certification for Inpatient Patient admitted to: Observation With expected LOS: <2 Midnights Patient will require the following post-hospital care: None Practitioner: I am a practitioner with admitting privileges, knowledge of patient current condition, hospital course, and medical plan of care. Services: Services provided to patient in accordance with Admission requirements found in Title 42 Section 412.3 of the Code of Federal Regulations Patient History Date of Service: 02/10/23 Reason for admission: AMS, Ataxic gait History of Present Illness: Patient is a 62-year-old female with a past medical history significant for breast cancer, DM 2, hypertension, renal cancer, RLS, alcohol abuse who presents with complaint of altered mental status, ataxic gait and bilateral lower extremity pain. At time of assessment patient is currently alert oriented x3. Patient rated BLE pain as 10/10 in severity and described pain as aching in quality. Patient reported that she ran out of ropinirole for her restless leg syndrome 2 days ago. Patient denies any other signs and symptoms. Symptoms are aggravated or relieved by nothing. Patient was brought to the hospital for medical evaluation. Allergies Sulfa (Sulfonamide Antibiotics) Allergy (Verified 08/16/16 21:44) Unknown Home Medications: ALPRAZolam [Xanax*] 1 mg PO DAILY 08/16/16 Aspirin 81 mg PO DAILY 08/16/16 Citalopram Hydrobromide [Citalopram HBr] 40 mg PO DAILY 08/16/16 Gabapentin [Neurontin] 1,800 mg PO DAILY 08/16/16 Losartan Potassium 40 mg PO DAILY 08/16/16 Ropinirole HCl 1 mg PO DAILY 08/16/16 Insulin Aspart [Novolog*] 3 units SQ SEECOM 08/17/16 Codeine/APAP [Tylenol W/Codeine #3 tab] 1 tab PO Q6HP PRN #20 tab 08/21/16 Furosemide 40 mg PO BID #30 tablet 08/21/16 Magnesium Oxide [Mag 0X Tab] 400 mg PO DAILY #15 tab 08/21/16 Metoprolol Tartrate [Lopressor*] 25 mg PO BID #60 tab 08/21/16 Rosuvastatin [Crestor*] 10 mg PO BEDTIME #30 tab 08/21/16 - Past Medical/Surgical History Diabetic: Yes -: breast cancer, diabetes-IDDM -: hypertension, kidney cancer -: carotid artery stent (2013) -: insulin pump - Family History Family History: Reviewed- Non-Contributory - Social History Smoking Status: Light Tobacco smoker (1-9 cigarettes/day) Counseled patient to stop smoking for: less than 10 minutes Smoking therapy provided: Yes Patient receptive to therapy: No Alcohol use: Yes CD- Drugs: No Caffeine use: Yes Place of Residence: Home Review of Systems General: Unremarkable Eyes: Unremarkable ENT: Unremarkable Respiratory: Unremarkable Cardiovascular: Unremarkable Gastrointestinal: Unremarkable Genitourinary: Unremarkable Musculoskeletal: Leg Pain Integumentary: Unremarkable Neurological: Other (Ataxic gait, HACKETT) Lymphatics: Unremarkable Physical Examination - Physical Exam General: Alert, In no apparent distress, Oriented x3, Cooperative HEENT: Atraumatic, PERRLA, Mucous membr. moist/pink, EOMI, Sclerae nonicteric Neck: Supple, 2+ carotid pulse no bruit, No LAD, Without JVD or thyroid abnormality Respiratory: Clear to auscultation bilaterally, Normal air movement Cardiovascular: No edema, Regular rate/rhythm, Normal S1 S2 Capillary refill: <2 Seconds Gastrointestinal: Normal bowel sounds, Soft and benign, No tenderness Musculoskeletal: No clubbing, No swelling, No tenderness Integumentary: No rashes, No breakdown, No significant lesion Neurological: Normal speech, Normal tone, Normal affect, Abnormal gait Lymphatics: No axilla or inguinal lymphadenopathy - Studies Laboratory Data (last 24 hrs) 02/10/23 13:14: PT 10.2, INR 0.93, APTT 33.9 02/10/23 13:14: WBC 4.40, Hgb 13.2, Hct 40.2, Plt Count 182 02/10/23 13:14: Sodium 138, Potassium 4.8, BUN 19 H, Creatinine 0.73, Glucose 157 H, Magnesium 1.8, Total Bilirubin 0.6, AST 12 L, ALT 20, Alkaline Phosphatase 84 Assessment and Plan - Plan --Acute encephalopathy. Unclear etiology. Likely secondary to alcohol abuse. Resolved at time of assessment. MRI brain unremarkable for any acute intracranial abnormality. Neurology consulted. Will further recommendations. --Ataxic gait. Unclear etiology. MRI brain unremarkable. Neurologist on board. PT eval and treat. Will await further recommendations. --RLS. Patient placed on ropinirole. --DM2 with neuropathy. BS monitoring with sliding scale insulin. Continue gabapentin when appropriate. --Alcohol abuse. Patient placed on thiamine, folic acid, multivitamin. Alcohol withdrawal assessment protocol. --Hyperlipidemia. Continue statin. --Hypertension. Poorly controlled. Continue home medications and labetalol as needed. --CKD 2. Stable. We will continue to monitor renal functions. --Hx of Breast cancer\renal cancer. Status unknown. Continue supportive care. -- DVT prophylaxis with Lovenox subQ. Discharge Plan: Home Plan to discharge in: 48 Hours - Advance Directives Does patient have a Living Will: No Does patient have a Durable POA for Healthcare: No - Code Status/Comfort Care Code Status Assessed: Yes Physician Review: Patient Assessed, Agree with Above Assessment and Plan Critical Care: No
[2023-02-10] MEDS: ENOXAPARIN 40 MG/0.4 ML SQ SCH (17:00)
[2023-02-10] MEDS: ROPINIROLE HCL 1 MG TAB PO SCH (17:00)
[2023-02-10 17:47] LABS: Magnesium 1.9 mg/dL (1.6-2.4); Phosphorus 3.5 mg/dL (2.5-4.9); Thyroid Stimulating Hormone 1.12 uIU/mL (0.358-3.740)
[2023-02-10] MEDS ORDERED: ENOXAPARIN 40 MG/0.4 ML SQ ONE (18:45)
[2023-02-10 18:49] VITALS: BMI 13.9
--- NOTE | 2023-02-10 20:06 | RAD REPORT ---
EXAM DESCRIPTION: MRI - Brain Wo Cont - 02/10/2023 7:46 pm CLINICAL HISTORY: R O CVA COMPARISON: Noncontrast head CT of the same day TECHNIQUE: Multiplanar multisequence MRI of the brain performed without IV contrast. FINDINGS: Motion artifact somewhat limits evaluation, despite attempts at repeat imaging. No evidence of acute infarct or other diffusion signal abnormality. No evidence of acute intracranial hemorrhage or abnormal extra-axial fluid collections. Ventricular caliber within normal for age. Midline structures are unremarkable. Subtle subcortical and deep white matter T2/FLAIR hyperintensities, nonspecific, but suggestive of ch ronic small vessel ischemic changes. No mass effect or midline shift. Major vascular flow voids are preserved. Mastoid air cells and paranasal sinuses are clear. IMPRESSION: No acute intracranial process. No evidence of ventriculomegaly or mass effect.
[2023-02-10] MEDS: INSULIN -REGULAR HUMAN 50 UNIT/0.5 ML ML SQ SCH (20:30)
[2023-02-10] MEDS ORDERED: HYDRALAZINE HCL 20 MG/ML VIAL ONE (23:20)
[2023-02-11 02:01] VITALS: O2SAT 96
[2023-02-11 06:55] LABS: Absolute Lymphocytes (CBC) 1.2 K/uL (0.7-4.9); Hematocrit 41.4 % (36.0-45.0); Lymphocytes % 33.5 % (15.3-44.8); MCV 96.6 fL (80-100); MPV 7.8 fL (7.6-11.3); RBC Red Blood Cell Count 4.28 M/uL (3.86-4.86)
[2023-02-11 07:10] LABS: Potassium 4.4 mEq/L (3.5-5.1)
[2023-02-11] MEDS: INSULIN -REGULAR HUMAN 50 UNIT/0.5 ML ML SQ SCH ×2 (07:30→13:05)
[2023-02-11] MEDS ORDERED: CYANOCOBALAMIN 1000MCG/ML INJ IM ONE (07:52)
[2023-02-11] MEDS ORDERED: FOLIC ACID 1 MG TABLET PO SCH (09:00)
[2023-02-11] MEDS ORDERED: MULTIVITAMIN TAB PO SCH (09:00)
[2023-02-11] MEDS ORDERED: THIAMINE HCL 100 MG TABLET PO SCH (09:00)
[2023-02-11] MEDS: ENOXAPARIN 40 MG/0.4 ML SQ SCH (09:12)
[2023-02-11] MEDS: ROPINIROLE HCL 1 MG TAB PO SCH (09:12)
[2023-02-11 12:20] VITALS: BP 139/63; TEMP 97.7
--- NOTE | 2023-02-11 13:26 | P.DS ---
Admission Date: 02/10/23 Discharge Date: 02/11/23 Disposition: ROUTINE DISCHARGE Discharge Condition: GOOD Reason for Admission: AMS, Ataxic gait Consultations: 1. 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 Allyson Trejo is a 62 year old female with a past medical history significant for type II diabetes mellitus, renal/breast cancer, hypertension, restless leg syndrome, and alcohol use disorder who was admitted to the [facility] on 02/10/2023 for dizziness, confusion, and ataxia. She was admitted to the Medicine service. Upon further evaluation, her chest x- ray revealed, "no acute cardiopulmonary process." Her CT head revealed, "no evidence of an acute intracranial process." Her MRI brain revealed, "no acute intracranial process. No evidence of ventriculomegaly or mass effect." Her carotid ultrasound revealed, "moderate hard plaquing in both carotid systems without a hemodynamically significant stenosis seen. CTA or MRA of the neck vessels could be obtained for further evaluation. Patent left carotid stent." Over the course of her hospitalization, her symptoms improved significantly. Her evaluation was notable for vitamin B12 deficiency. Today, she displayed no confusion or ataxia. She was able to ambulate around the nursing station, without any difficulties. Neurology was consulted and she was evaluated by Dr. Mckoy. He has cleared her for discharge with aspirin, atorvastatin, clopidogrel, folic acid, and OTC vitamin B12 (cyanocobalamin) 2,500 mcg PO daily. On 02/11/2023, she was seen on rounds and deemed medically stable for discharge. She was discharged with instructions to schedule follow-up appointments with her PCP and with Neurology (Dr. Mckoy). She was provided prescriptions for atorvastatin, clopidogrel, and ropinirole. She and her family members were given the opportunity to ask questions and reported no further questions. Furthermore, all questions were answered to the best of my ability. A copy of this discharge summary will be sent to the above providers to facilitate continuity of care. Today, I personally spent 25 minutes on her care, of which greater than 50% of the time was spent in patient education, counseling, and coordination of care as described above. NIH Stroke Scale 1a. Level of consciousness: 0 - Alert; keenly responsive 1b. LOC questions: 0 - Both questions right 1c. LOC commands: 0 - Performs both tasks 2. Best Gaze: 0 - Normal 3. Visual: 0 - No visual loss 4. Facial Palsy: 0 - Normal symmetry 5a. Motor left arm: 0 - No drift for 10 seconds 5b. Motor right arm: 0 - No drift for 10 seconds 6a. Motor left le - No drift for 5 seconds 6b. Motor right le - No drift for 5 seconds 7. Limb ataxia: 0 - No ataxia 8. Sensory: 0 - Normal; no sensory loss 9. Best Language: 0 - Normal; no aphasia 10. Dysarthria: 0 - Normal 11. Extinction and Inattention: 0 - No abnormality 12. Distal motor function: 0 - No abnormality Total Score: 0 Vital Signs/Physical Exam: Temp Pulse Resp BP Pulse Ox 97.7 F 65 16 139/63 94 02/11/23 12:00 02/11/23 12:00 02/11/23 12:00 02/11/23 12:00 02/11/23 12:00 Laboratory Data at Discharge: WBC 3.50 thou/uL (4.3-10.9) L 02/11/23 06:11 Hgb 14.1 g/dL (12.0-15.0) 02/11/23 06:11 Hct 41.4 % (36.0-45.0) 02/11/23 06:11 Plt Count 154 thou/uL (152-406) 02/11/23 06:11 PT 10.2 SECONDS (9.5-12.5) 02/10/23 13:14 INR 0.93 02/10/23 13:14 APTT 33.9 SECONDS (24.3-36.9) 02/10/23 13:14 Sodium 138 mEq/L (136-145) 02/11/23 06:11 Potassium 4.4 mEq/L (3.5-5.1) 02/11/23 06:11 BUN 18 mg/dL (7-18) 02/11/23 06:11 Creatinine 0.65 mg/dL (0.55-1.02) 02/11/23 06:11 Glucose 127 mg/dL (74-106) H 02/11/23 06:11 Phosphorus 3.5 mg/dL (2.5-4.9) 02/10/23 16:56 Magnesium 1.9 mg/dL (1.6-2.4) 02/10/23 16:56 Total Bilirubin 0.6 mg/dL (0.2-1.0) 02/10/23 13:14 AST 12 U/L (15-37) L 02/10/23 13:14 ALT 20 U/L (13-56) 02/10/23 13:14 Alkaline Phosphatase 84 U/L (45-117) 02/10/23 13:14 Home Medications: Aspirin 81 mg PO DAILY 08/16/16 Citalopram Hydrobromide [Citalopram HBr] 40 mg PO DAILY 08/16/16 Atorvastatin Calcium 40 mg PO BEDTIME #30 tab 02/11/23 Clopidogrel Bisulfate [Plavix] 75 mg PO DAILY #30 tab 02/11/23 Cyanocobalamin [Vitamin B-12*] 2,500 mcg PO DAILY tab 02/11/23 Dapagliflozin Propanediol [Farxiga] 1 tab PO BEDTIME 02/11/23 Duloxetine HCl [Cymbalta] 60 mg PO BID 02/11/23 Folic Acid 1 mg PO DAILY #30 02/11/23 Gabapentin [Gralise] 600 mg PO BEDTIME 02/11/23 Losartan/Hydrochlorothiazide [Losartan-Hctz 100-12.5 mg Tab] 1 tab PO DAILY 02/11/23 Metformin ER [Glucophage ER*] 1 tab PO PRN PRN 02/11/23 Mirtazapine [Remeron*] 1 tab PO BEDTIME 02/11/23 Ropinirole HCl [Requip*] 1 mg PO BEDTIME #14 tab 02/11/23 Semaglutide [Ozempic] 1 dose SQ UD 02/11/23 New Medications: Atorvastatin Calcium 40 mg PO BEDTIME #30 tab Folic Acid 1 mg PO DAILY #30 Clopidogrel Bisulfate [Plavix] 75 mg PO DAILY #30 tab Ropinirole HCl [Requip*] 1 mg PO BEDTIME #14 tab Physician Discharge Instructions: 1. Please call and schedule a follow-up appointment with your PCP in 3-5 days - You were found to have a small spot on your left lung. We need to make sure that this spot is not a cancer. Please discuss this with your PCP and schedule a repeat CT scan to follow this up. 2. Please call and schedule a follow-up appointment with neurology (Dr. Mckoy) in 5-7 days - You have some narrowing in your carotid arteries in your neck. Please discuss this with Dr. Mckoy. - You have been provided prescriptions for atorvastatin, clopidogrel, and ropinirole. Please have your PCP or Dr. Mckoy refill these medications as an outpatient. Diet: AHA Activity: Ad galen Followup: Unknown,U [Primary Care Provider] - Sandeep Mckoy MD [ASSOCIATE-ACTIVE - CAN ADMIT] - Time spent managing pt's care (in minutes): 25
--- NOTE | 2023-02-11 13:27 | EKG ---
Test Date: 2023-02-10 Test Time: 13:04:56 Car Stereo Installer: ALEXIS MEASUREMENT RESULTS: Intervals: Rate: 76 WI: 152 QRSD: 66 QT: 406 QTc: 456 Garner: P: 49 WI: 152 QRS: -5 T: 47 INTERPRETIVE STATEMENTS: Normal sinus rhythm Low voltage QRS Septal infarct, age undetermined Abnormal ECG Compared to ECG 08/17/2016 06:51:02 Low QRS voltage now present Myocardial infarct finding now present Electronically Signed On 02-11-23 13:25:51 CDT by Ritchie Chou
--- NOTE | 2023-02-11 14:35 | RAD REPORT ---
EXAM DESCRIPTION: - CP - 02/11/2023 2:14 pm CLINICAL HISTORY: TIA Headache, drowsiness, CVA symptomology COMPARISON: Carotid Artery Bilateral dated 08/17/2016 TECHNIQUE: Real-time sonographic evaluation of both carotid systems was performed. Doppler interroga tion was performed with waveform tracing bilaterally. FINDINGS: Normal high resistance waveforms are noted in both external carotid arteries. The common c arotid arteries and internal carotid arteries show normal low resistance waveforms. Moderate hard plaque is seen in the right carotid bulb. There is a left-sided carotid stent which is widely patent. Moderate hard plaque is seen proximal left internal carotid artery. Overall no hemodyn amically significant stenosis is seen. Antegrade flow seen in both vertebral arteries. IMPRESSION: Moderate hard plaquing in both carotid systems without a hemodynamically significant yael nosis seen. CTA or MRA of the neck vessels could be obtained for further evaluation. Patent left carotid stent.
[2023-02-12] MEDS ORDERED: CYANOCOBALAMIN 1,000 MCG TAB PO SCH (09:00)
== END 2023-02-11 16:20 | disposition home or self-care (01) ==
LOC: ER 12:11 → ERHOLD 16:34 → 4TH 23:02
PROVIDERS: ADMIT Internal Medicine; ATTEND Internal Medicine
DX: R41.82 Altered mental status, unspecified (principal); R26.0 Ataxic gait; G93.40 Encephalopathy, unspecified; E53.8 Deficiency of other specified B group vitamins; E11.9 Type 2 diabetes mellitus without complications; I10 Essential (primary) hypertension; G25.81 Restless legs syndrome; F10.10 Alcohol abuse, uncomplicated; M79.605 Pain in left leg; M79.604 Pain in right leg; R91.1 Solitary pulmonary nodule; Z88.2 Allergy status to sulfonamides; Z85.3 Personal history of malignant neoplasm of breast; Z85.53 Personal history of malignant neoplasm of renal pelvis
CPT/HCPCS: 93005; 85025 ×2; 81001; 80048 ×2; 36415; 83735 ×2; 84100; 85610; 82947 ×5; 80076; 85730; 84443; 84484; 84439; 82607; 80307; 70450; 71045; 93880; 70551; 94760; 96374; 99285; 82077; J3411; J3420; J1815; J0360; J1650 ×2; G0378

== ENCOUNTER 2024-10-28 15:14 | Emergency (ER) | payer BC ==
[2024-10-28] MEDS ORDERED: NA CHLORIDE 0.9% 500 ML ONE ×2 (16:11→19:09)
--- NOTE | 2024-10-28 17:30 | RAD REPORT ---
EXAMINATION: US LEFT LOWER EXTREMITY VENOUS DOPPLER CLINICAL INDICATION: PAIN TECHNIQUE: Complete bilateral duplex sonography of the LEFT lower extremity veins was performed. The examination included compression for vein patency, color Doppler imaging and flow augmentation in response to distal compression of the distal external iliac, common femoral, femoral, popliteal, tibi al, and great and small saphenous veins. COMPARISON: No prior exam. FINDINGS: Duplex sonography testing of the veins of the LEFT lower extremity was performed. Color flow imaging shows all veins to be compressible with [id number] color filling. Pulsatile and phasic flow is present within all lower extremity deep and superficial veins examined. IMPRESSION: No evidence of deep venous thrombosis.
--- NOTE | 2024-10-28 17:31 | RAD REPORT ---
EXAMINATION: XR Femur Left CLINICAL INDICATION: Female, 63 years old. PAIN TECHNIQUE: 2 view radiograph of the left femur were obtained. COMPARISON: Pelvis radiographs of the same day. FINDINGS: No evidence of fracture or dislocation. Normal alignment. No evidence of arthropathy or oth er focal bone lesion. Soft tissues are unremarkable. Enthesopathy at the quadriceps tendon attachment. IMPRESSION: No acute or significant abnormalities.
--- NOTE | 2024-10-28 17:31 | RAD REPORT ---
EXAMINATION: XR PELVIS CLINICAL INDICATION: Female, 63 years old. PAIN TECHNIQUE: AP Pelvis radiograph was obtained. COMPARISON: No prior exam. FINDINGS: No evidence of fracture or dislocation. Normal alignment. No evidence of AVN. Soft tissues are unremarkable. IMPRESSION: No acute or significant abnormalities.
[2024-10-28] MEDS ORDERED: ONDANSETRON 4 MG/2 ML VIAL ONE (18:11)
[2024-10-28] MEDS ORDERED: MORPHINE 4 MG/ML SYR ONE ×2 (18:12→19:35)
[2024-10-28 18:15] LABS: Absolute Eosinophils 0.2 K/uL (0-0.5); Absolute Lymphocytes (CBC) 1.4 K/uL (0.7-4.9); Absolute Monocytes 0.2 K/uL (0.1-1.3); Absolute Neutrophil 2.4 K/uL (1.8-8.0); Basophils % 0.7 % (0-1.3); Eosinophils % 5.6 % (0-4.4); Hematocrit 40.2 % (36.0-45.0); Hemoglobin 13.6 g/dL (12.0-15.0); Lymphocytes % 32.1 % (15.3-44.8); MCHC 33.8 g/dL (32.0-36.0); MCV 97.7 fL (80-100); MPV 7.8 fL (7.6-11.3); Monocytes % 5.6 % (3.3-12.3); Nucleated Red Blood Cells % 0.1 % (0-0); Platelets 210 thou/uL (152-406); RBC Red Blood Cell Count 4.12 M/uL (3.86-4.86); Red Cell Distribution Width 14.1 % (12.1-15.2)
[2024-10-28 18:25] LABS: Albumin 3.3 g/dL (3.4-5.0); Anion Gap 9.9 mEq/L (5.0-15.0); Bilirubin Total 0.7 mg/dL (0.2-1.0); Globulin 3.3 g/dL (2.3-3.5); Protein, Total 6.6 g/dL (6.4-8.2)
[2024-10-28 18:42] LABS: Potassium 4.9 mEq/L (3.5-5.1)
[2024-10-28 18:44] LABS: Specific Gravity 1.026 (1.005-1.030); Sqamous Epithelial <5 /HPF (None Seen); Transitional Epithelial <5 /HPF (None Seen); Urine Bacteria <20 /HPF (<20); Urine Bilirubin NEGATIVE (Negative); Urine Blood Negative (Negative); Urine Clarity Clear (Clear); Urine Color Light-Yellow (Yellow); Urine Culture Reflex Order NOT NEEDED; Urine Glucose 4+ (Over) (Negative); Urine Ketones NEGATIVE (Negative); Urine Microscopic Reflex YN ORDER UMIC; Urine Mucus Slight /HPF (None Seen); Urine Nitrite NEGATIVE (Negative); Urine Protein TRACE (Negative); Urine RBC <5 /HPF (None Seen); Urine Urobilinogen Normal (Normal); Urine WBC <5 /HPF (<5); Urine pH 5.5 (5.0-7.0)
--- NOTE | 2024-10-28 19:55 | RAD REPORT ---
EXAM: CT CHEST, ABDOMEN AND PELVIS WITH CONTRAST CLINICAL INDICATION: Female, 63 years old. PAIN TECHNIQUE: CT chest, abdomen, and pelvis was performed, following the administration of contrast, as per department protocol. Axial, sagittal and coronal reconstructions were obtained. One or more of the following dose reduction techniques were used: Automated exposure control, adjustment of the mA a nd/or kV according to patient size, and/or iterative reconstruction. Unless otherwise specified, incidental findings do not require dedicated imaging follow-up. COMPARISON: No prior exam. FINDINGS: LUNGS AND AIRWAYS: No evidence of airspace or interstitial process. No nodules. PLEURA: No pleural effusion. No pneumothorax. MEDIASTINUM AND LYMPH NODES: No mediastinal mass or fluid collection. Normal size mediastinal, hilar, and axillary lymph nodes. THORACIC AORTA: Normal caliber and configuration. PULMONARY ARTERIES: Normal caliber. OSSEOUS STRUCTURES AND CHEST WALL: Intact. LIVER: Normal in size and contour. No focal lesion or biliary dilitation. BILIARY SYSTEM: Status post cholecystectomy. PANCREAS: Focal ductal dilation at the junction of the head and body up to 9 mm with less pronounced ductal prominence along the head. No discrete mass, or justin-pancreatic fluid. SPLEEN: Normal size. No focal lesion. ADRENALS: Normal; no mass. KIDNEYS AND URETERS: Normal size, with bilateral Contour lobulation, nonspecific, could relate to per sistent lobulation or sequelae of prior infectious episodes. No hydronephrosis. URINARY BLADDER: Normal contour. GASTROINTESTINAL TRACT: Sequelae of Jovana-en-Y gastric bypass. No bowel obstruction, free air, signifi cant free fluid or abscess. APPENDIX: No inflammatory changes in region of appendix. LYMPH NODES: No lymphadenopathy. ABDOMINAL AORTA AND OTHER VESSELS: Normal caliber aorta and IVC. MUSCULOSKELETAL: Superior endplate compression deformities at T3, T5, T6, T7, and T8. No other acute or suspicious osseous abnormality. Postsurgical changes in the right breast with no discrete mass and CT dated IMPRESSION: Multilevel superior endplate thoracic spine compression deformities of indeterminate age. No other ac levelock abnormalities seen in the chest, abdomen or pelvis. Focal ductal prominence of the main pancreatic duct, could relate to sequelae of chronic pancreatitis versus a subtle mass resulting in partial obstruction. Please correlate with pancreatic enzyme levels, and consider gastroenterology consultation on nonemergent basis. Other benign-appearing findings as above.
--- NOTE | 2024-10-28 19:58 | EDPHYS ---
Physician Documentation [facility] Name: Allyson Trejo Age: 63 yrs Sex: Female : 1960 Arrival Date: 10/28/2024 Time: 15:14 Bed 18 Private MD: Manuel Flores HPI: 10/28 16:39 This 63 yrs old Female presents to ER via Ambulatory with complaints of dana Abscess. 16:39 The patient presents with an abscess of the left upper thigh, the patient presents with dana a swollen area of the left upper thigh. Onset: The symptoms/episode began/occurred 3 day(s) ago. Possible cause(s): FALL 3 DAYS AGO. Historical: - Allergies: 15:37 Sulfa (Sulfonamide Antibiotics); ap3 - PMHx: 15:37 breast cancer; Diabetes - IDDM; Hypertension; kidney cancer; ap3 - PSHx: 15:37 section; Coronary artery stent; Gastric Bypass; partial left kidney removal; ap3 Right lumpectomy; - Immunization history:: Client reports receiving the 2nd dose of the Covid vaccine, Flu vaccine is up to date. - Infectious Disease History:: Denies. - Social history:: Smoking status: Patient reports the use of cigarette tobacco products, denies chronic smoking, but will smoke occasionally. ROS: 16:45 Constitutional: Negative for fever, chills, and weight loss, Eyes: Negative for injury, dana pain, redness, and discharge, ENT: Negative for injury, pain, and discharge, Neck: Negative for injury, pain, and swelling, Cardiovascular: Negative for chest pain, palpitations, and edema, Respiratory: Negative for shortness of breath, cough, wheezing, and pleuritic chest pain, Abdomen/GI: Negative for abdominal pain, nausea, vomiting, diarrhea, and constipation, Back: Negative for injury and pain, : Negative for injury, bleeding, discharge, and swelling, Skin: Negative for injury, rash, and discoloration, Neuro: Negative for headache, weakness, numbness, tingling, and seizure, Psych: Negative for depression, anxiety, suicide ideation, homicidal ideation, and hallucinations, Allergy/Immunology: Negative for hives, rash, and allergies, Endocrine: Negative for neck swelling, polydipsia, polyuria, polyphagia, and marked weight changes, Hematologic/Lymphatic: Negative for swollen nodes, abnormal bleeding, and unusual bruising, 16:45 MS/extremity: Positive for decreased range of motion, pain, tenderness, of the pelvis, Exam: 16:45 Constitutional: This is a well developed, well nourished patient who is awake, alert, dana and in no acute distress. Head/Face: Normocephalic, atraumatic. Eyes: Pupils equal round and reactive to light, extra-ocular motions intact. Lids and lashes normal. Conjunctiva and sclera are non-icteric and not injected. Cornea within normal limits. Periorbital areas with no swelling, redness, or edema. ENT: Nares patent. No nasal discharge, no septal abnormalities noted. Tympanic membranes are normal and external auditory canals are clear. Oropharynx with no redness, swelling, or masses, exudates, or evidence of obstruction, uvula midline. Mucous membranes moist. Neck: Trachea midline, no thyromegaly or masses palpated, and no cervical lymphadenopathy. Supple, full range of motion without nuchal rigidity, or vertebral point tenderness. No Meningismus. Chest/axilla: Normal chest wall appearance and motion. Nontender with no deformity. No lesions are appreciated. Cardiovascular: Regular rate and rhythm with a normal S1 and S2. No gallops, murmurs, or rubs. Normal PMI, no JVD. No pulse deficits. Respiratory: Lungs have equal breath sounds bilaterally, clear to auscultation and percussion. No rales, rhonchi or wheezes noted. No increased work of breathing, no retractions or nasal flaring. Abdomen/GI: Soft, non-tender, with normal bowel sounds. No distension or tympany. No guarding or rebound. No evidence of tenderness throughout. Back: No spinal tenderness. No costovertebral tenderness. Full range of motion. Skin: Warm, dry with normal turgor. Normal color with no rashes, no lesions, and no evidence of cellulitis. Neuro: Awake and alert, GCS 15, oriented to person, place, time, and situation. Cranial nerves II-XII grossly intact. Motor strength 5/5 in all extremities. Sensory grossly intact. Cerebellar exam normal. Normal gait. Psych: Awake, alert, with orientation to person, place and time. Behavior, mood, and affect are within normal limits. 16:45 Musculoskeletal/extremity: ROM: full active range of motion, full passive range of motion, limited active range of motion due to pain, limited passive range of motion due to pain, Circulation is intact in all extremities. Sensation intact. Compartment Syndrome exam of affected extremity: is normal. Weight bearing: able to fully bear weight, PAINFUL, DVT Exam: no swelling, negative Homans' sign noted on exam, no appreciated bluish discoloration, no erythema, no increased warmth, pain, tenderness, Vital Signs: 15:36 BP 122 / 93; Pulse 82; Resp 18; Temp 98.8; Pulse Ox 100% ; Weight 77.56 kg; Height 5 ap3 ft. 5 in. ; Pain 8/10; 15:53 Height 5 ft. 5 in. ; kj2 16:00 BP 133 / 70; Pulse 79; Resp 18; Pulse Ox 100% on R/A; kj2 17:00 BP 96 / 74; Pulse 75; Resp 18; Pulse Ox 100% ; kj2 18:00 BP 150 / 60; Pulse 77; Resp 18; Pulse Ox 100% on R/A; kj2 19:05 BP 148 / 64; Pulse 78; Resp 18; Pulse Ox 100% on R/A; kj2 20:11 BP 122 / 51; Pulse 64; Resp 18; Temp 97.9; Pulse Ox 100% on R/A; kj2 15:36 Body Mass Index 28.46 (77.56 kg, 165.1 cm) ap3 15:36 Pain Scale: Adult ap3 MDM: 16:02 Medical Screening Exam initiated dana 16:47 Data reviewed: vital signs, nurses notes, lab test result(s), radiologic studies, CT dana scan, plain films. Consideration of Admission/Observation Escalation of care including admission/observation considered. I considered the following discharge prescriptions or medication management in the emergency department Medications were administered in the Emergency Department. See MAR. Independent interpretation of the following test(s) in the Emergency Department X-Ray: My interpretation is PELVIS, FEMUR. Test considered but Not performed: Ultrasound NO ABD USG. Care significantly affected by the following chronic conditions: Diabetes, Hypertension, Cancer. 10/28 16:04 Order name: CBC with Diff; Complete Time: 18:40 [facility] 10/28 16:04 Order name: Comprehensive Metabolic Panel; Complete Time: 20:09 [facility] 10/28 16:04 Order name: Urinalysis w/ reflexes; Complete Time: 18:57 [facility] 10/28 19:59 Order name: Lipase [facility] 10/28 20:02 Order name: Lipase; Complete Time: 20:09 EDMS 10/28 16:13 Order name: Femur Left XRAY; Complete Time: 18:12 [facility] 10/28 16:13 Order name: Pelvis XRAY; Complete Time: 18:12 [facility] 10/28 16:13 Order name: US Extremity Venous Unilateral Ltd; Complete Time: 18:12 [facility] 10/28 16:46 Order name: Chest Abdomen Pelvis W Cont; Complete Time: 19:56 EDMS 10/28 16:49 Order name: Head C Spine Mpr Wo Con; Complete Time: 20:09 EDMS Administered Medications: 18:09 Drug: NS 0.9% IV 500 ml 500 ml IV at 1 bolus once; to be given as a bolus over 30 kj2 minutes Volume: 500 ml; Route: IV; Rate: 1 bolus; Site: right antecubital; 19:43 Follow up: IV Status: Completed infusion; IV Intake: 500ml kj2 18:21 Drug: morphine IVP or IV 4 mg IVP once over 4 mins Route: IVP; Infused Over: 4 mins; kj2 Site: right antecubital; 19:42 Follow up: Response: No adverse reaction; Pain is unchanged, physician notified kj2 18:21 Drug: Ondansetron IVP 4 mg IVP once; over 2 minutes Route: IVP; Site: right antecubital;kj2 19:42 Follow up: Response: No adverse reaction kj2 19:31 Drug: NS 0.9% IV 500 ml IV at 125 ml/hr once; to be given as a bolus over 30 minutes kj2 Route: IV; Rate: 125 ml/hr; Site: right antecubital; 19:41 Drug: morphine IVP or IV 4 mg IVP once over 4 mins Route: IVP; Infused Over: 4 mins; kj2 Site: right antecubital; 20:13 Follow up: Response: No adverse reaction kj2 Disposition Summary: 10/28/24 19:58 Discharge Ordered Notes: Location: Home dana Problem: new dana Symptoms: have improved dana Condition: Stable dana Diagnosis - Unspecified symptoms and signs involving the musculoskeletal system dana - Fall on same level, unspecified dana - Contusion of left hip dana Followup: dana - With: Private Physician - When: 2 - 3 days - Reason: Recheck today's complaints, Continuance of care, Re-evaluation by your physician Followup: dana - With: Tre Vasquez MD - When: 2 - 3 days - Reason: Recheck today's complaints, Re-evaluation by your physician Followup: dana - With: Stanislaw Ramirez MD - When: 2 - 3 days - Reason: Recheck today's complaints, Re-evaluation by your physician Discharge Instructions: - Discharge Summary Sheet dana - Contusion dana - Fall Prevention in the Home, Adult dana - Musculoskeletal Pain dana - Contusion, [id number] Forms: - Medication Reconciliation Form dana - Antibiotic Education dana - Prescription Opioid Use dana - Patient Portal Instructions [facility] - Leadership Thank You Letter [facility] Prescriptions: - diclofenac sodium 25 mg Oral tablet, delayed release (enteric coated) - take 1 tablet ORAL route 3 times per day; 30 tablet; Refills: 0, Product dana Selection Permitted - Tramadol 50 mg Oral tablet - take 1 tablet ORAL route every 8 hours as needed; 24 tablet; Refills: 0, [facility] Product Selection Permitted - methocarbamol 750 mg Oral tablet - take 1 tablet ORAL route every 6 hours PRN PAIN; 20 tablet; Refills: 0, Product dana Selection Permitted Signatures: Dispatcher [employer] EDMS Manuel Ramesh MD MD cha Prokisch, Amanda, RN RN ap3 Marlene Yeboah, RN RN kj2 Corrections: (The following items were deleted from the chart) 16:04 16:04 CBC+H.LAB.BRZ ordered. EDMS EDMS 16:04 16:04 COMPREHENSIVE METABOLIC PANEL+C.LAB.BRZ ordered. EDMS EDMS 16:04 16:04 Urinalysis+U.LAB.BRZ ordered. EDMS EDMS 16:13 16:13 Femur Left+RAD.RAD.BRZ ordered. EDMS EDMS 16:13 16:13 Pelvis+RAD.RAD.BRZ ordered. EDMS EDMS 16:13 16:13 Extremity Venous Uni Ltd+US.RAD.BRZ ordered. EDMS EDMS 16:46 16:13 Head C Spine CAP W Con+CT.RAD.BRZ ordered. EDMS EDMS 18:04 16:13 HEPATIC FUNCTION+C.LAB.BRZ ordered. EDMS EDMS
--- NOTE | 2024-10-28 19:58 | ER ---
Nurse's Notes [facility] Name: Allyson Trejo Age: 63 yrs Sex: Female : 1960 Arrival Date: 10/28/2024 Time: 15:14 Bed 18 Private MD: Diagnosis: Unspecified symptoms and signs involving the musculoskeletal system;Fall on same level, unspecified;Contusion of left hip Presentation: 10/28 15:36 Chief complaint: Patient states: she had an abscess removed 10 years ago in her groin ap3 area, and where the procedure was done, she is having "shooting pain for 2 or three days". Patient currently rates her pain as an 8/10 on the pain scale. Coronavirus screen: At this time, the client does not indicate any symptoms associated with coronavirus-19. Ebola Screen: No symptoms or risks identified at this time. Initial Sepsis Screen: Does the patient meet any 2 criteria? No. Patient's initial sepsis screen is negative. Does the patient have a suspected source of infection? No. Patient's initial sepsis screen is negative. Risk Assessment: Do you want to hurt yourself or someone else? Patient reports no desire to harm self or others. Onset of symptoms is unknown. 15:36 Method Of Arrival: Ambulatory ap3 15:36 Acuity: SANCHEZ 3 ap3 Triage Assessment: 15:38 General: Appears in no apparent distress. Behavior is calm, cooperative, appropriate ap3 for age. Pain: Complains of pain in groin. Neuro: Level of Consciousness is awake, alert, obeys commands, Oriented to person, place, time, situation, Appropriate for age. Cardiovascular: Patient's skin is warm and dry. Respiratory: Airway is patent Respiratory effort is even, unlabored, Respiratory pattern is regular, symmetrical. Historical: - Allergies: 15:37 Sulfa (Sulfonamide Antibiotics); ap3 - PMHx: 15:37 breast cancer; Diabetes - IDDM; Hypertension; kidney cancer; ap3 - PSHx: 15:37 section; Coronary artery stent; Gastric Bypass; partial left kidney removal; ap3 Right lumpectomy; - Immunization history:: Client reports receiving the 2nd dose of the Covid vaccine, Flu vaccine is up to date. - Infectious Disease History:: Denies. - Social history:: Smoking status: Patient reports the use of cigarette tobacco products, denies chronic smoking, but will smoke occasionally. Screenin:38 [facility] ED Fall Risk Assessment (Adult) History of falling in the last 3 months, ap3 including since admission Yes- single mechanical fall (1 pt) Confusion or Disorientation No (0 pts) Intoxicated or Sedated No (0 pts) Impaired Gait No (0 pts) Mobility Assist Device Used No (0 pt) Altered Elimination No (0 pt) Score/Fall Risk Level 0 - 2 = Low Risk Oriented to surroundings, Maintained a safe environment, Educated pt \\T\\ family on fall prevention, incl call for assistance when getting out of bed, Assessed \\T\\ reinforced patient's understanding of fall precautions, Hourly rounding (assess needs \\T\\ fall precautionary measures) done, Used ambulatory aids as needed (educated on \\T\\ assisted with). Abuse screen: Denies threats or abuse. Nutritional screening: No deficits noted. Tuberculosis screening: No symptoms or risk factors identified. Assessment: 15:52 General: Appears in no apparent distress. Behavior is calm, cooperative. Pain: kj2 Complains of pain in pelvis and groin. Neuro: Level of Consciousness is awake, Oriented to person, place, time, situation. Cardiovascular: Patient's skin is warm and dry. Respiratory: Airway is patent Respiratory effort is even, unlabored. GI: Abdomen is flat. : No signs and/or symptoms were reported regarding the genitourinary system. 17:00 Reassessment: Patient appears in no apparent distress at this time. Patient and/or kj2 family updated on plan of care and expected duration. Pain level reassessed. Patient is alert, oriented x 3, equal unlabored respirations, skin warm/dry/pink. 18:00 Reassessment: Patient appears in no apparent distress at this time. Patient and/or kj2 family updated on plan of care and expected duration. Pain level reassessed. Patient is alert, oriented x 3, equal unlabored respirations, skin warm/dry/pink. 19:05 Reassessment: Patient appears in no apparent distress at this time. Patient and/or kj2 family updated on plan of care and expected duration. Pain level reassessed. Patient is alert, oriented x 3, equal unlabored respirations, skin warm/dry/pink. 20:11 Reassessment: Patient appears in no apparent distress at this time. Patient and/or kj2 family updated on plan of care and expected duration. Pain level reassessed. Patient is alert, oriented x 3, equal unlabored respirations, skin warm/dry/pink. Vital Signs: 15:36 BP 122 / 93; Pulse 82; Resp 18; Temp 98.8; Pulse Ox 100% ; Weight 77.56 kg; Height 5 ap3 ft. 5 in. ; Pain 8/10; 15:53 Height 5 ft. 5 in. ; kj2 16:00 BP 133 / 70; Pulse 79; Resp 18; Pulse Ox 100% on R/A; kj2 17:00 BP 96 / 74; Pulse 75; Resp 18; Pulse Ox 100% ; kj2 18:00 BP 150 / 60; Pulse 77; Resp 18; Pulse Ox 100% on R/A; kj2 19:05 BP 148 / 64; Pulse 78; Resp 18; Pulse Ox 100% on R/A; kj2 20:11 BP 122 / 51; Pulse 64; Resp 18; Temp 97.9; Pulse Ox 100% on R/A; kj2 15:36 Body Mass Index 28.46 (77.56 kg, 165.1 cm) ap3 15:36 Pain Scale: Adult ap3 ED Course: 15:19 Patient arrived in ED. mr 15:37 Triage completed. ap3 15:39 Arm band placed on left wrist. ap3 15:51 Marlene Yeboah, RN is Primary Nurse. kj2 15:53 Patient has correct armband on for positive identification. Provided Education on: call kj2 light. 15:53 No provider procedures requiring assistance completed. kj2 16:02 Manuel Ramesh MD is Attending Physician. dana 16:30 Missed attempt(s): 20 gauge in left antecubital area. kj2 16:54 US Extremity Venous Unilateral Ltd In Process Unspecified. EDMS 17:05 Missed attempt(s): 22 gauge in right forearm. Bleeding controlled, band aid applied, em1 catheter tip intact. 17:09 Femur Left XRAY In Process Unspecified. EDMS 17:09 Pelvis XRAY In Process Unspecified. EDMS 17:46 Radiology exam delayed due to lab results not completed at this time. (BUN/Creatinine) sm9 IV insertion attempt and/or patient not having appropriate IV at this time. 18:00 Initial lab(s) drawn, by me, sent to lab. Missed attempt(s): 22 gauge in left ph antecubital area. Bleeding controlled, band aid applied, catheter tip intact. Inserted saline lock: 22 gauge in right antecubital area, using aseptic technique. Blood collected. Flushed with 10 mL NS. 19:20 Chest Abdomen Pelvis W Cont In Process Unspecified. EDMS 19:20 Head C Spine Mpr Wo Con In Process Unspecified. EDMS 19:58 Tre Vasquez MD is Referral Physician. [facility] 19:58 Stanislaw Ramirez MD is Referral Physician. dana 20:12 IV discontinued, intact, bleeding controlled, No redness/swelling at site. Pressure kj2 dressing applied. Administered Medications: 18:09 Drug: NS 0.9% IV 500 ml 500 ml IV at 1 bolus once; to be given as a bolus over 30 kj2 minutes Volume: 500 ml; Route: IV; Rate: 1 bolus; Site: right antecubital; 19:43 Follow up: IV Status: Completed infusion; IV Intake: 500ml kj2 18:21 Drug: morphine IVP or IV 4 mg IVP once over 4 mins Route: IVP; Infused Over: 4 mins; kj2 Site: right antecubital; 19:42 Follow up: Response: No adverse reaction; Pain is unchanged, physician notified kj2 18:21 Drug: Ondansetron IVP 4 mg IVP once; over 2 minutes Route: IVP; Site: right antecubital;kj2 19:42 Follow up: Response: No adverse reaction kj2 19:31 Drug: NS 0.9% IV 500 ml IV at 125 ml/hr once; to be given as a bolus over 30 minutes kj2 Route: IV; Rate: 125 ml/hr; Site: right antecubital; 19:41 Drug: morphine IVP or IV 4 mg IVP once over 4 mins Route: IVP; Infused Over: 4 mins; kj2 Site: right antecubital; 20:13 Follow up: Response: No adverse reaction kj2 Medication: 15:53 VIS not applicable for this client. kj2 Intake: 19:43 IV: 500ml; Total: 500ml. kj2 Outcome: 19:58 Discharge ordered by . dana 20:12 Discharged to home ambulatory, kj2 20:12 Condition: stable 20:12 Discharge instructions given to patient, Instructed on discharge instructions, follow up and referral plans. Demonstrated understanding of instructions, follow-up care, 20:30 Patient left the ED. kj2 Signatures: Dispatcher [employer] EDManuel Gama MD MD cha Rivera, [place], [facility] mr Vasquez, Aman em1 Mariposa Allen, RN RN Jessica Mendieta RN RN ap3 Katie Rodriges 9 Marlene Yeboah RN RN kj2
--- NOTE | 2024-10-28 20:00 | RAD REPORT ---
EXAM: CT brain without contrast HISTORY: pain COMPARISON: None TECHNIQUE: Multiple contiguous axial images were obtained and a CT of the brain without contrast. Sag ittal and coronal reformats were performed. FINDINGS: No evidence of hydrocephalus, intracranial hemorrhage, or extra-axial fluid collection. The brain is normal in morphology. The calvarium is intact. The visualized paranasal sinuses and mastoid air cells are essentially clear . IMPRESSION: No evidence of acute intracranial abnormality. EXAM: CT of the cervical spine without contrast HISTORY: pain COMPARISON: None TECHNIQUE: Multiple contiguous axial images were obtained in a CT of the cervical spine without contr ast. Sagittal and coronal reformats were performed. FINDINGS: The vertebral bodies demonstrate normal height and alignment. No evidence of acute fracture or subluxation.. Degenerative changes most notably at C5-6 with disc height loss, and uncovertebral joint spurring contributing to mild left neural foraminal narrowing. No prevertebral s oft tissue swelling is seen. The posterior facets are well aligned. Normal alignment of the skull base with the cervical spine is seen. The lung apices are unremarkable. Left carotid stent in place. IMPRESSION: No evidence of acute osseous abnormality of the cervical spine.
[2024-10-28 20:41] VITALS: O2SAT 100
[2024-10-28 20:49] VITALS: BP 122/51; TEMP 97.9
== END 2024-10-28 20:30 | disposition home or self-care (01) ==
LOC: ER 15:14
DX: R29.91 Unspecified symptoms and signs involving the musculoskeletal system (principal); S70.02XA Contusion of left hip, initial encounter; W18.30XA Fall on same level, unspecified, initial encounter; F17.210 Nicotine dependence, cigarettes, uncomplicated
CPT/HCPCS: 96361; 85025; 81001; 36415; 83690; 80053; 70450; 72125; 71260; 74177; 72170; 73552; 93971; 96375; 96374; 99284; Q9967; J2405; J7040 ×2

== ENCOUNTER 2024-12-01 15:21 | Emergency (ER) | payer BC ==
[2024-12-01 16:35] LABS: Absolute Eosinophils 0.3 K/uL (0-0.5); Absolute Monocytes 0.2 K/uL (0.1-1.3); Absolute Neutrophil 2.7 K/uL (1.8-8.0); Basophils % 0.6 % (0-1.3); Hematocrit 39.8 % (36.0-45.0); Hemoglobin 13.3 g/dL (12.0-15.0); Lymphocytes % 24.2 % (15.3-44.8); MCH 33.2 pg (27.0-35.0); MCHC 33.5 g/dL (32.0-36.0); MCV 99.1 fL (80-100); MPV 7.9 fL (7.6-11.3); Monocytes % 5.3 % (3.3-12.3); Neutrophils % 63.9 % (41.7-73.7); Platelets 222 thou/uL (152-406); RBC Red Blood Cell Count 4.01 M/uL (3.86-4.86); Red Cell Distribution Width 13.9 % (12.1-15.2)
[2024-12-01] MEDS ORDERED: HYDROCODONE/APAP 10/325 TAB ONE (16:38)
[2024-12-01 17:08] LABS: Anion Gap 9.3 mEq/L (5.0-15.0)
[2024-12-01 17:09] LABS: Potassium 5.3 mEq/L (3.5-5.1)
--- NOTE | 2024-12-01 17:48 | RAD REPORT ---
Thorax W/ Con CLINICAL INDICATION: Female, 64 years old. blunt chest wall trauma, sternal pain TECHNIQUE: Routine CT scan of the chest with intravenous contrast. One or more of the following dose reduction techniques were used: Automated exposure control, adjustment of the mA and/or kV according to patient size, and/or iterative reconstruction. Unless otherwise specified, incidental fi ndings do not require dedicated imaging follow-up. [id number]. COMPARISON: 10/28/2024 FINDINGS: LOWER NECK: Visualized thyroid gland and soft tissues are normal. LUNGS AND AIRWAYS: Airways are clear. No evidence of airspace or interstitial process.Scattered calci fied pulmonary nodules. No suspicious pulmonary nodules. PLEURA: No pleural effusions. No pneumothorax. MEDIASTINUM AND LYMPH NODES: No mediastinal mass or fluid collection. Normal size mediastinal, hilar, and axillary lymph nodes. THORACIC AORTA: No thoracic aortic aneurysm. Atherosclerotic changes are present. PULMONARY ARTERIES: Caliber is within normal limits. HEART: Normal heart size. Mild coronary artery calcifications.No significant pericardial effusion. OSSEOUS STRUCTURES AND CHEST WALL: Slight buckling of the upper third of the sternum, best seen on th e frontal view it is new from 10/26/2024. Thoracic compression fractures are unchanged. Post surgical changes in the right breast. UPPER ABDOMEN: No acute abnormalities.Jovana-en-Y gastric bypass. IMPRESSION: Acute nondisplaced sternal fracture. No retrosternal hematoma.
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
[2024-12-01 19:23] VITALS: TEMP 97.9; O2SAT 100
[2024-12-01 19:26] VITALS: BP 154/83
== END 2024-12-01 19:10 | disposition home or self-care (01) ==
LOC: ER 15:21
DX: S22.20XA Unspecified fracture of sternum, initial encounter for closed fracture (principal); W22.8XXA Striking against or struck by other objects, initial encounter; I10 Essential (primary) hypertension
CPT/HCPCS: 85025; 80048; 36415; 71260; 99284; Q9967